=== PATIENT | male | born 1985 | race Caucasian/White ===

== ENCOUNTER 2020-03-15 07:14 | Inpatient (IN) | payer OTHER, SELFPAY ==
--- NOTE | ~2020-03-15 | CT_ITS ---
EXAMINATION: CT abdomen pelvis w con DATE: 03/15/2020 08:16 INDICATION: Epigastric abdominal pain. TECHNIQUE: Computed tomography (CT) of the abdomen and pelvis was performed with 100 mL Omnipaque 350 intravenous contrast. Automated exposure control and iterative reconstruction technique were employe d. The dose-length product was 284.82 mGy-cm. COMPARISON: None. FINDINGS: The visualized portions of the lung bases demonstrate mild atelectasis. No pleural effusion . The heart size is normal. No pericardial effusion. The liver and spleen are normal. There are jarrell es of cholecystectomy. There is edema of the head of the pancreas with surrounding fat stranding and small volume of free fluid, consistent with acute interstitial pancreatitis. There is inflammation of the adjacent duodenum. The adrenal glands and kidneys are normal. There are no dilated loops of kacie l. The appendix is normal. There are no pathologically enlarged lymph nodes. There is no pelvic ascit es. There is mild thoracic spondylosis. IMPRESSION: 1. Acute interstitial pancreatitis. Reviewed, dictated and finalized at location A.
[2020-03-15 07:23] VITALS: BP 155/105; PULSE 117; RESP 18; TEMP 36.8; O2SAT 100
--- NOTE | 2020-03-15 07:23 | ED.ABDPAIN ---
HPI - Abdominal Pain General Chief Complaint: Abdominal Pain Stated Complaint: abd pain Time Seen by Provider: 03/15/20 07:16 History of Present Illness HPI narrative: Epigastric pain for the past 3 days. Severe. Radiates throughout abdomen. Feels like before he had his gall bladder removed. Tried ibuprofen with temoparary partial relief of the pain. No nausea, vomiting. He reports chronic diarrhea. He says that he has a lot of medical problems, but nothing right now Related Data Home Medications Medication Instructions Recorded Confirmed atorvastatin 20 mg DAILY 03/15/20 03/15/20 clonidine HCl 0.1 mg Q12H 03/15/20 03/15/20 levothyroxine 200 mcg DAILY 03/15/20 03/15/20 olanzapine [Zyprexa] 5 mg PO DAILY PRN 03/15/20 03/15/20 paliperidone palm (3-month) See Rx Instructions .ROUTE .COMPLEX 03/15/20 03/15/20 [Invega Trinza] Allergies Allergy/AdvReac Type Severity Reaction Status Date / Time No Known Allergies Allergy Verified 03/15/20 07:32 Review of Systems Review of Systems: All systems reviewed & are unremarkable except as noted in HPI and below Constitutional: Constitutional: Denies fever(s) ENT: Denies sore throat Cardiovascular: Cardiovascular: Denies chest pain Respiratory: Respiratory: Denies dyspnea Gastrointestinal: Gastrointestinal: Reports abdominal pain, Reports diarrhea, Denies nausea and Denies vomiting Genitourinary: Genitourinary: Denies dysuria Musculoskeletal: Musculoskeletal: Denies back pain Neurologic: Denies weakness [facility] Surgical History Surgical History Hx of cholecystectomy Family History Family History (Updated 03/15/20 @ 10:25 by Patricia Fernando RN) Father Acute myocardial infarction Cerebrovascular accident Mother Family history of malignant neoplasm of thyroid Diabetes mellitus Social History Social History Smoking packs per day: 2 Smoking cigarettes per day: 40.0 Years smoked: 27 Smoking pack-years: 54.00 Smoking status: Current every day smoker Tobacco type: cigarettes Alcohol intake: current Drinks per week: 90 Substance use type: marijuana Last use: 03/14/20 Gender identity (if verbalized by the patient): Male Spiritual care concerns: No Exam Const: General: healthy appearing, no acute distress and alert Orientation/consciousness: patient oriented x3 HENMT: Head: normal to inspection Neck: Neck: normal visual inspection and no lymphadenopathy Chest: Chest palpation & inspection: no tenderness Resp: Effort & Inspection: normal respiratory effort Auscultation: clear to auscultation bilaterally and wheezes Cardio: Jugular venous distension: no JVD Rate: regular rate Rhythm: regular rhythm Heart sounds: no murmurs GI: Inspection: non-distended GI Palp: Yes Soft to palpation and Yes Tenderness to palpation present (GI) (epigastric) Skin: General skin exam: normal color Neuro: General: patient oriented x3 and moves all extremities Speech: normal speech Extrem: General: no edema Psych: Appearance: well kempt Affect: normal affect Course Vital Signs Vital signs: Vital Signs Temperature 36.8 C 03/15/20 07:23 Pulse Rate 117 H 03/15/20 07:23 Respiratory Rate 18 03/15/20 07:23 Blood Pressure 155/105 H 03/15/20 07:23 Pulse Oximetry 100 03/15/20 07:23 Temperature 37.2 C 03/15/20 10:18 Pulse Rate 74 03/15/20 10:18 Respiratory Rate 20 03/15/20 10:18 Blood Pressure 133/94 H 03/15/20 10:18 Pulse Oximetry 97 03/15/20 10:18 MDM - Abdominal Pain Differential Diagnosis Differential diagnosis: Likely pancreatitis and other (gastritis) Medical Records Attestation: I reviewed the patient's medical records. Lab Data Attestation: I reviewed the patient's lab results. Result diagrams: 03/15/20 07:27 03/15/20 07:27 Labs: Lab Results
[2020-03-15 07:35] LABS: Basophils Absolute Auto 0.1 K/mm3 (0.0-0.1); Basophils Percent Auto 0.5 % (0.2-1.2); Eosinophils Absolute Auto 0.1 K/mm3 (0-0.3); Hematocrit 45.8 % (42.0-52.0); Immature Granulocyte Absolute 0.03 K/mm3 (0.00-0.031); Immature Granulocyte Percent A 0.3 % (0-0.5); Lymphocytes Absolute Auto 1.95 K/mm3 (0.9-3.2); Lymphocytes Percent Auto 16.8 % (18.3-44.2); Mean Corpuscular HGB Conc 34.9 g/dl (32-36); Mean Corpuscular Hemoglobin 32.5 pg (26-34); Mean Corpuscular Volume 92.9 fl (80-100); Mean Platelet Volume 9.6 fl (7.4-10.4); Monocytes Absolute Auto 0.8 K/mm3 (0.1-0.6); Monocytes Percent Auto 7.2 % (2.6-8.5); Neutrophils Absolute Auto 8.6 K/mm3 (1.3-6.7); Neutrophils Percent Auto 74.2 % (45.5-73.1); Platelet Count Result 270 k/mm3 (150-375); Red Blood Count 4.93 M/mm3 (4.6-6.20); Red Cell Distribution Width 12.2 % (11.5-14.5); White Blood Count 11.6 K/mm3 (4.5-10.0)
[2020-03-15 07:37] LABS: Add Urine Microscopic? NO; Appearance Urine Clear (Clear); Bilirubin Urine Negative (Negative); Blood Urine Negative (Negative); Color Urine Yellow (Yellow); Glucose Urine UA Negative (Negative); Ketones Urine Negative (Negative); Leukocyte Esterase Ur Negative LEU/UL (Negative); Nitrate Urine Negative (Negative); Protein Urine Negative (Negative); Specific Grav Ur 1.013 (1.001-1.035); Urobilinogen Urine Negative mg/dL (<2.0)
[2020-03-15] MEDS: MAG HYDROX/AL HYDROX/SIMETH 30 ML UDC PO (07:38)
[2020-03-15] MEDS: LIDOCAINE HCL 2% VISC SOLN 15 ML UDC 20 ML PO (07:38)
[2020-03-15] MEDS: DICYCLOMINE HCL INJ 20 MG/2 ML VIAL IM (07:41)
[2020-03-15] MEDS: PANTOPRAZOLE SODIUM IV 40 MG VIAL IV PUSH (07:42)
[2020-03-15 07:47] LABS: Alanine Aminotransferase 45 U/L (4-50); Albumin Level 4.3 g/dL (3.5-5.1); Alkaline Phosphatase 141 U/L (38-126); Anion Gap 8 mmol/L (8-16); Aspartate Amino Transferase 49 U/L (17-59); Bilirubin,Total 0.8 mg/dL (0.2-1.3); Blood Urea Nitrogen 4 mg/dL (9-20); Calcium 9.5 mg/dL (8.4-10.2); Carbon Dioxide 21 mmol/L (22-30); Chloride 106 mmol/L (98-107); Estimated CRCL calculation 114 ml/min; Estimated Glomerular Filt Rate > 60; Glucose 160 mg/dL (75-110); Lipase 842 U/L (23-300); Potassium 3.6 mmol/L (3.4-5.0); Sodium 135 mmol/L (137-145)
[2020-03-15] MEDS: SODIUM CHLORIDE 0.9% IV 1,000 ML 999 ML IV CONT (09:01)
[2020-03-15] MEDS: MORPHINE SULFATE 4 MG/ML INJ IV PUSH ×3 (09:02→13:06)
[2020-03-15 09:24] VITALS: BP 146/99; PULSE 101; RESP 18; O2SAT 100
--- NOTE | 2020-03-15 10:00 | ADMGEN ---
This patient, Luke Arriaga, was admitted to Medical Room 347-01. Patient/family oriented to hospital policies and general routines including ID bracelet, bed and alarms, visiting hours, pain management, procedures, bathroom and other care routines, personal items, smoking policy, room service/diet, and visiting hours. Valuables list has been completed. Information on how to activate the Rapid Response Team has been discussed. Patient/Family are encouraged to report perceived risks to care and to ask questions if they do not understand what they are told or what they should do.
[2020-03-15] MEDS: SODIUM CHLORIDE 0.9% IV 1,000 ML 150 ML IV CONT ×2 (10:08→16:58)
[2020-03-15 10:18] VITALS: BP 133/94; PULSE 74; RESP 20; TEMP 37.2; O2SAT 97
[2020-03-15 10:20] VITALS: BMI 22.4
--- NOTE | 2020-03-15 11:56 | PM.IMHP ---
H&P: HPI History of Present Illness Date/Time: 03/15/20 11:56 Chief complaint: Acute pancreatitis Narrative: Luke Arriaga is a 34 year old male with a past medical history of psychiatric illness, S/P cholecystectomy 5 years ago and patient also states that he has been drinking 10-12 beers every day patient presented emergency department with a complaint of abdominal pain for last 3 days nausea pain radiates to all over his abdominal, denies any fever or chills, patient LFT are within normally limits and has elevated lipase of 842, patient had a CT scan of the abdomen showed acute interstitial pancreatitis. patient is diagnosed with acute pancreatitis will keep the patient NPO, hydrate and pain management, will monitor patient's lipase and further recommendation to follow. patient with history of alcohol abuse we have started the patient on CIWA protocol and Librium as well as Ativan p.r.n. Review of Systems Review of Systems: All systems reviewed & are unremarkable except as noted in HPI and below PMFSH Surgical History Surgical History Hx of cholecystectomy Family History Family History (Updated 03/15/20 @ 10:25 by Patricia Fernando RN) Father Acute myocardial infarction Cerebrovascular accident Mother Family history of malignant neoplasm of thyroid Diabetes mellitus Social History Social History Smoking packs per day: 2 Smoking cigarettes per day: 40.0 Years smoked: 27 Smoking pack-years: 54.00 Smoking status: Current every day smoker Tobacco type: cigarettes Alcohol intake: current Drinks per week: 90 Substance use type: marijuana Last use: 03/14/20 Gender identity (if verbalized by the patient): Male Spiritual care concerns: No Meds Home Medications and Allergies Home Medications Medication Instructions Recorded Confirmed Type atorvastatin 20 mg DAILY 03/15/20 03/15/20 History clonidine HCl 0.1 mg Q12H 03/15/20 03/15/20 History levothyroxine 200 mcg DAILY 03/15/20 03/15/20 History olanzapine [Zyprexa] 5 mg PO DAILY PRN 03/15/20 03/15/20 History paliperidone palm (3-month) See Rx Instructions .ROUTE .COMPLEX 03/15/20 03/15/20 History [Invega Trinza] Allergies Allergy/AdvReac Type Severity Reaction Status Date / Time No Known Allergies Allergy Verified 03/15/20 07:32 Vital Signs Vital Signs - 24 hr 03/15/20 07:23 03/15/20 09:24 03/15/20 10:18 Temperature 98.2 F 98.9 F Pulse Rate 117 H 101 H 74 Respiratory Rate 18 18 20 Blood Pressure 155/105 H 146/99 H 133/94 H Pulse Oximetry 100 100 97 Exam Const: General: no acute distress and uncomfortable HENMT: General nose exam: Normal nares present Mouth: Yes moist mucous membranes Eyes: General: appearance normal, both eyes and all related structures Sclera: sclerae normal Neck: Neck: supple Resp: Effort & Inspection: normal respiratory effort Auscultation: clear to auscultation bilaterally Cardio: Rate: regular rate Rhythm: regular rhythm GI: Auscultation: normal bowel sounds Other: tender in epigastric Skin: General skin exam: normal color Neuro: Speech: normal speech Sensory Exam: normal sensation Extrem: General: normal to inspection Psych: Affect: Anxious affect present H&P: Results Labs Labs: Short CBC 03/15/20 Range/Units 07:27 WBC 11.6 H (4.5-10.0) K/mm3 Hgb 16.0 (14.0-18.0) g/dL Hct 45.8 (42.0-52.0) % Plt Count 270 (150-375) k/mm3 [facility] 03/15/20 07:27 Sodium 135 L Potassium 3.6 Chloride 106 Carbon Dioxide 21 L BUN 4 L Creatinine 0.70 Glucose 160 H Calcium 9.5 Liver Function 03/15/20 Range/Units 07:27 Total Bilirubin 0.8 (0.2-1.3) mg/dL AST 49 (17-59) U/L ALT 45 (4-50) U/L Alkaline Phosphatase 141 H (38-126) U/L Albumin 4.3 (3.5-5.1) g/dL Urine 03/15/20 Range/Units
[2020-03-15] MEDS: chlordiazePOXIDE 25 MG CAPSULE 50 MG PO ×2 (12:21→17:59)
[2020-03-15] MEDS: NICOTINE (*PBKC) 21 MG PATCH 1 PATCH TRANSDERM (12:21)
[2020-03-15 14:53] VITALS: BP 160/98; PULSE 88; RESP 16; TEMP 37.2; O2SAT 98
[2020-03-15 20:00] VITALS: PULSE 88
[2020-03-15 21:23] VITALS: BP 160/90; PULSE 95; RESP 16; TEMP 36.6; O2SAT 93
[2020-03-16] MEDS: chlordiazePOXIDE 25 MG CAPSULE 50 MG PO ×2 (00:21→05:59)
[2020-03-16 00:24] VITALS: PULSE 98
[2020-03-16 00:29] VITALS: BP 162/88; PULSE 104; RESP 20; TEMP 36.8; O2SAT 98
[2020-03-16 04:41] VITALS: PULSE 94
[2020-03-16 06:00] VITALS: BP 154/90; PULSE 118; RESP 20; TEMP 36.6; O2SAT 99
[2020-03-16 06:29] LABS: Hematocrit 42.8 % (42.0-52.0); Hemoglobin 15.1 g/dL (14.0-18.0); Mean Corpuscular HGB Conc 35.3 g/dl (32-36); Mean Corpuscular Hemoglobin 32.8 pg (26-34); Mean Platelet Volume 9.8 fl (7.4-10.4); Platelet Count Result 237 k/mm3 (150-375); Red Cell Distribution Width 11.9 % (11.5-14.5); White Blood Count 14.3 K/mm3 (4.5-10.0)
[2020-03-16 07:12] LABS: Alanine Aminotransferase 29 U/L (4-50); Albumin Level 3.7 g/dL (3.5-5.1); Alkaline Phosphatase 108 U/L (38-126); Anion Gap 6 mmol/L (8-16); Aspartate Amino Transferase 31 U/L (17-59); Bilirubin,Total 0.9 mg/dL (0.2-1.3); Blood Urea Nitrogen 4 mg/dL (9-20); Calcium 8.9 mg/dL (8.4-10.2); Carbon Dioxide 22 mmol/L (22-30); Chloride 105 mmol/L (98-107); Estimated CRCL calculation 138 ml/min; Estimated Glomerular Filt Rate > 60; Glucose 128 mg/dL (75-110); Potassium 3.6 mmol/L (3.4-5.0); Sodium 133 mmol/L (137-145)
[2020-03-16 08:00] VITALS: BP 154/90; PULSE 118; PULSE 94; RESP 20; O2SAT 99
[2020-03-16 08:25] LABS: Lipase 7490 U/L (23-300)
[2020-03-16] MEDS: NICOTINE (*PBKC) 21 MG PATCH 1 PATCH TRANSDERM (09:34)
--- NOTE | 2020-03-16 11:52 | PC.NURSE ---
1120 patient voiced for the second time that he is ready to leave against medical advise. Notified him that if he leaves that his payor source may not pay for his hospital stay. He voiced that he is still leaving and called for a ride. Notified Dr. Broussard and charge nurse that patient is leaving against medical advice. No new orders.
--- NOTE | 2020-03-16 14:12 | PM.DS ---
DS: Admitting Diagnosis Admitting Diagnosis Admitting Diagnosis: Acute pancreatitis Patient left AMA before I can see him DS: Summary Time Spent with Patient Time attestation: Total time spent providing and/or coordinating discharge services: DS: Data Data Completed and Pending Labs on day of discharge: Labs from last 24 hours 03/16/20 03/16/20 03/16/20 05:59 05:59 05:57 WBC 14.3 H RBC 4.60 Hgb 15.1 Hct 42.8 MCV 93.0 MCH 32.8 MCHC 35.3 RDW 11.9 Plt Count 237 MPV 9.8 Sodium 133 L Potassium 3.6 Chloride 105 Carbon Dioxide 22 Anion Gap 6 L BUN 4 L Creatinine 0.60 L Estim Creat Clear Calc 138 Estimated GFR > 60 Glucose 128 H Calcium 8.9 Magnesium 2.0 Total Bilirubin 0.9 AST 31 ALT 29 Alkaline Phosphatase 108 Total Protein 6.0 L Albumin 3.7 Lipase 7490 H Discharge Plan Discharge Consulting providers: Raulito Collado Patient Disposition: Left Against Medical Advice Patient Instructions: Pancreatitis (DC), Pain Management (DC), Acute Delirium (DC), Alcohol Withdrawal (DC), How to Quit Using Smokeless Tobacco (DC) Discharge Medications: No Action clonidine HCl 0.1 mg tablet 0.1 mg Q12H RF: 0 atorvastatin 20 mg tablet 20 mg DAILY RF: 0 levothyroxine 200 mcg tablet 200 mcg DAILY RF: 0 Invega Trinza 410 mg/1.315 mL syringe See Rx Instructions .ROUTE .COMPLEX RF: 0 olanzapine [Zyprexa] 5 mg Tablet 5 mg PO DAILY PRN (Reason: Anxiety) RF: 0 Date of admission: 03/15/20 09:01 Primary Care Provider: PHYSICIAN,PORTRAIT ARTIST Admitting Provider: Denita Broussard Discharge Date/Time: 03/16/20 11:35 Attending physician on admission: Denita Broussard Condition: Stable Quality VTE Prophylaxis VTE prophylaxis: mechanical ordered
== END 2020-03-16 11:35 | disposition left against medical advice (07) | DRG 282 ==
LOC: ANHED 07:49 → ANH3MED 09:47
PROVIDERS: Admitting Provider Family Medicine; Emergency Provider Emergency Medicine; Visit Provider Family Medicine
DX: K85.80 Other acute pancreatitis without necrosis or infection (principal); F10.10 Alcohol abuse, uncomplicated; F17.210 Nicotine dependence, cigarettes, uncomplicated; Z90.49 Acquired absence of other specified parts of digestive tract
CPT/HCPCS: 36415; 74177; 80053; 81003; 83690; 83735; 85025; 85027; 96365; 96372; 96375; 99285; A9270; C9113; J0131; J0500; J1170; J2060; J2270; J7030; Q9967

== ENCOUNTER 2020-03-18 11:29 | Inpatient (IN) | payer OTHER, SELFPAY ==
[2020-03-18] VITALS (7 sets, daily range): BP systolic 129–148; BP diastolic 70–99; PULSE 64–98; RESP 16–21; TEMP 36.2–36.6; O2SAT 98–100; BMI 23.9
[2020-03-18 12:02] LABS: Basophils Absolute Auto 0.1 K/mm3 (0.0-0.1); Basophils Percent Auto 0.8 % (0.2-1.2); Eosinophils Absolute Auto 0.5 K/mm3 (0-0.3); Hematocrit 39.3 % (42.0-52.0); Hemoglobin 13.7 g/dL (14.0-18.0); Immature Granulocyte Absolute 0.02 K/mm3 (0.00-0.031); Immature Granulocyte Percent A 0.2 % (0-0.5); Lymphocytes Absolute Auto 1.94 K/mm3 (0.9-3.2); Lymphocytes Percent Auto 20.6 % (18.3-44.2); Mean Corpuscular HGB Conc 34.9 g/dl (32-36); Mean Corpuscular Hemoglobin 32.4 pg (26-34); Mean Corpuscular Volume 92.9 fl (80-100); Mean Platelet Volume 9.4 fl (7.4-10.4); Monocytes Absolute Auto 0.8 K/mm3 (0.1-0.6); Monocytes Percent Auto 8.7 % (2.6-8.5); Neutrophils Absolute Auto 6.1 K/mm3 (1.3-6.7); Neutrophils Percent Auto 64.7 % (45.5-73.1); Platelet Count Result 231 k/mm3 (150-375); Red Blood Count 4.23 M/mm3 (4.6-6.20); White Blood Count 9.4 K/mm3 (4.5-10.0)
[2020-03-18 12:13] LABS: Alanine Aminotransferase 27 U/L (4-50); Alkaline Phosphatase 107 U/L (38-126); Anion Gap 10 mmol/L (8-16); Aspartate Amino Transferase 46 U/L (17-59); Bilirubin,Total 0.4 mg/dL (0.2-1.3); Blood Urea Nitrogen 3 mg/dL (9-20); Calcium 9.2 mg/dL (8.4-10.2); Carbon Dioxide 21 mmol/L (22-30); Chloride 106 mmol/L (98-107); Estimated CRCL calculation 136 ml/min; Estimated Glomerular Filt Rate > 60; Glucose 147 mg/dL (75-110); Lipase 1386 U/L (23-300); Potassium 3.6 mmol/L (3.4-5.0); Sodium 137 mmol/L (137-145)
--- NOTE | 2020-03-18 12:31 | ED.GENADULT ---
HPI - General Adult General Chief complaint: Abdominal Pain Stated complaint: abd pain/pancreatitis Time Seen by Provider: 03/18/20 12:15 Source: patient Limitations: no limitations History of Present Illness HPI narrative: Patient is a 34 y/o male complaining of epigastric abdominal pain starting 6 days ago. He describes the pain as sharp with intermittent radiation to his back. He has chronic diarrhea, but no vomiting. He has no fever, chills or dysuria. He states that he was admitted for pancreatitis, but left AMA 2 days ago. He states that since he left AMA, he has been eating and drinking beer, which made his pain worse. He is agreeable to be admit and compliant with medical treatment. Related Data Home Medications Medication Instructions Recorded Confirmed atorvastatin 20 mg DAILY 03/15/20 03/15/20 clonidine HCl 0.1 mg Q12H 03/15/20 03/15/20 levothyroxine 200 mcg DAILY 03/15/20 03/15/20 olanzapine [Zyprexa] 5 mg PO DAILY PRN 03/15/20 03/15/20 paliperidone palm (3-month) See Rx Instructions .ROUTE .COMPLEX 03/15/20 03/15/20 [Invega Trinza] Allergies Allergy/AdvReac Type Severity Reaction Status Date / Time No Known Allergies Allergy Verified 03/15/20 07:32 Review of Systems Constitutional: Constitutional: Denies chills, Denies fever(s), Denies headache(s) and Denies weakness Eyes: Eyes: Denies blurry vision ENT: Denies headache(s) and Denies neck pain Cardiovascular: Cardiovascular: Denies chest pain and Denies dyspnea Respiratory: Respiratory: Denies cough and Denies dyspnea Gastrointestinal: Gastrointestinal: Reports abdominal pain, Reports diarrhea, Denies nausea and Denies vomiting Genitourinary: Genitourinary: Denies hematuria and Denies dysuria Musculoskeletal: Musculoskeletal: Denies back pain and Denies neck pain Neurologic: Denies headache(s) and Denies weakness PMF Past Medical History Medical History (Updated 03/18/20 @ 13:49 by Klaudia Pretty MD) Depression with anxiety Hemorrhoids Hyperlipidemia Hypothyroidism Schizoaffective disorder Seizures Last seizure in 2018. Thyroid cancer (~2000) Status post radio active iodine treatment. Surgical History Surgical History (Updated 03/18/20 @ 13:37 by Anh Schaeffer PA-C) History of cholecystectomy Family History Family History Father Acute myocardial infarction Cerebrovascular accident Mother Family history of malignant neoplasm of thyroid Diabetes mellitus Social History Social History (Updated 03/18/20 @ 13:39 by Anh Schaeffer PA-C) Social History: Surrogate decision maker: Code status: Smoking packs per day: 2 Smoking cigarettes per day: 40.0 Years smoked: 27 Smoking pack-years: 54.00 Smoking status: Current every day smoker Tobacco type: cigarettes Alcohol intake: current Drinks per week: 90 Substance use type: marijuana Last use: 03/14/20 Additional living arrangements comments: Resides in [place]. Gender identity (if verbalized by the patient): Male Sexual Orientation (if Verbalized by the Patient): Straight or Heterosexual Spiritual care concerns: No Exam Const: General: no acute distress and well developed Orientation/consciousness: oriented to person, oriented to place, oriented to time and patient oriented x3 HENMT: Head: normocephalic Ears: external ears normal General nose exam: Normal external nose present Eyes: General: appearance normal, both eyes and all related structures Conjunctivae: conjunctivae normal Neck: Neck: normal visual inspection and full ROM Chest: Chest palpation & inspection: normal inspection of the chest and no tenderness Resp: Effort & Inspection: normal respiratory effort Auscultation: clear to auscultation bilaterally Cardio: Rate: regular rate Rhythm: regular rhythm GI: GI Palp: Yes abdominal tenderness (epigastric) and Yes Soft to palpation Skin
[2020-03-18] MEDS: MORPHINE SULFATE 4 MG/ML INJ IV PUSH (12:48)
[2020-03-18] MEDS: SODIUM CHLORIDE 0.9% IV 1,000 ML 999 ML IV CONT (12:48)
--- NOTE | 2020-03-18 13:30 | ADMGEN ---
This patient, Luke Arriaga, was admitted to 2 Medical Room 240-01. Patient/family oriented to hospital policies and general routines including ID bracelet, bed and alarms, visiting hours, pain management, procedures, bathroom and other care routines, personal items, smoking policy, room service/diet, and visiting hours. Valuables list has been completed. Information on how to activate the Rapid Response Team has been discussed. Patient/Family are encouraged to report perceived risks to care and to ask questions if they do not understand what they are told or what they should do.
--- NOTE | 2020-03-18 14:00 | PM.IMHP ---
H&P: HPI History of Present Illness Date/Time: 03/18/20 14:00 Chief complaint: Abdominal pain. Narrative: Luke Arriaga is a 34-year-old male with hypertension, hyperlipidemia, hypothyroidism status post thyroidectomy for thyroid cancer, and schizoaffective disorder who presented to the emergency department earlier this afternoon for evaluation of abdominal pain. Last Wednesday he reports the gradual onset of heartburn, which seemed to settle mainly in epigastrium and slightly to the left upper quadrant. The pain intensified and is been a constant sharp, shooting pain. The pain is worse with eating and drinking and he gives no alleviating factors. He was admitted to the hospital on March 15 with pancreatitis, however left against medical advice the following day because he was not allowed to eat. Since leaving hospital 2 days ago, he has continued to eat and drink beer (his usual 10 to 15 beers a day), which of course has made his pain worse. He denies associated nausea, vomiting, and diaphoresis At the time my evaluation he rates his pain 9/10. He is noticeably jittery in bed but he and his admit that this is normal behavior for him due to his anxiety. He has never had signs or symptoms of alcohol withdrawal to his knowledge, but it sounds as though he had 3 seizures in the past between 2011 in 2018. With further questioning, he has only been drinking alcohol in significant quantities for approximately 8 months due to stress. Additionally, he occasionally has hallucinations related to his schizoaffective disorder but he has not noticed a change in these. Of note, his last drink was at 22:00 last evening, and his last meal consisted of hot dog this morning. Review of Systems Review of Systems: Narrative: Twelve systems reviewed with pertinent positives and negatives as per HPI. No fever, chills, or sweats. No headache. No recent cold or flu symptoms. Denies chest pain and shortness of breath. No feelings of racing heart. He has chronic diarrhea, up to 10 loose stools a day, and this is been going on for many years. He reports bright red blood per rectum with each bowel movement, and has had 4 colonoscopies showing internal hemorrhoids. Except as documented, all other systems were reviewed and are negative. [facility] Past Medical History Medical History (Updated 03/18/20 @ 14:38 by Anh Schaeffer PA-C) Alcohol abuse Anxiety For which he is prescribed clonidine. Attention deficit disorder Depression Hemorrhoids Hyperlipidemia Hypothyroidism Schizoaffective disorder Seizures Last seizure in 2018. Spontaneous pneumothorax Thyroid cancer (~2000) Status post thyroidectomy. Tobacco dependence Surgical History Surgical History (Updated 03/18/20 @ 14:30 by Anh Schaeffer PA-C) History of cholecystectomy History of thyroidectomy (~2000) Family History Family History Father Acute myocardial infarction Cerebrovascular accident Mother Family history of malignant neoplasm of thyroid Diabetes mellitus Social History Social History (Updated 03/18/20 @ 14:32 by Anh Schaeffer PA-C) Social History: Surrogate decision maker: Rekha Arriaga, . Code status: Full code. Smoking packs per day: 2 Smoking cigarettes per day: 40.0 Years smoked: 27 Smoking pack-years: 54.00 Smoking status: Current every day smoker Tobacco type: cigarettes Alcohol intake: current Drinks per week: 90 Alcohol use details: Patient drinks between 10 to 15 beers a day. Substance use type: marijuana Other substance usage details: Daily marijuana use. Last use: 03/14/20 Additional living arrangements comments: Resides in a multi generation home in [place] to include his and 2 children. Additional occupation/education comments: Disabled due to underlying mental illness. Gender identity (if verbalized by the patient):
[2020-03-18] MEDS: SODIUM CHLORIDE 0.9% IV 1,000 ML 125 ML IV CONT ×2 (14:09→21:51)
[2020-03-18] MEDS: chlordiazePOXIDE 10 MG CAPSULE PO ×2 (15:04→23:47)
[2020-03-18] MEDS: NICOTINE (*PBKC) 21 MG PATCH 1 PATCH TRANSDERM (15:07)
[2020-03-18 15:16] LABS: Magnesium 2.1 mg/dL (1.6-2.3)
[2020-03-18 15:43] LABS: Thyroid Stimulating Hormone Reflex < 0.015 uIU/mL (0.465-4.68)
[2020-03-18] MEDS: THIAMINE HCL 200 MG/2 ML VIAL 100 MG IV PUSH (16:49)
[2020-03-18] MEDS: cloNIDine HCL 0.1 MG TABLET PO (21:47)
[2020-03-19] VITALS (7 sets, daily range): BP systolic 142–163; BP diastolic 87–95; PULSE 67–84; RESP 16–21; TEMP 36.1–37.1; O2SAT 98–100
[2020-03-19 05:19] LABS: Hematocrit 38.1 % (42.0-52.0); Mean Corpuscular HGB Conc 34.1 g/dl (32-36); Mean Corpuscular Hemoglobin 32.5 pg (26-34); Mean Corpuscular Volume 95.3 fl (80-100); Mean Platelet Volume 9.8 fl (7.4-10.4); Platelet Count Result 232 k/mm3 (150-375); White Blood Count 8.4 K/mm3 (4.5-10.0)
[2020-03-19 05:40] LABS: Alanine Aminotransferase 25 U/L (4-50); Albumin Level 3.4 g/dL (3.5-5.1); Alkaline Phosphatase 104 U/L (38-126); Anion Gap 6 mmol/L (8-16); Aspartate Amino Transferase 38 U/L (17-59); Bilirubin,Total 0.4 mg/dL (0.2-1.3); Blood Urea Nitrogen 4 mg/dL (9-20); Calcium 8.7 mg/dL (8.4-10.2); Carbon Dioxide 25 mmol/L (22-30); Chloride 109 mmol/L (98-107); Estimated CRCL calculation 123 ml/min; Estimated Glomerular Filt Rate > 60; Glucose 105 mg/dL (75-110); Lipase 827 U/L (23-300); Potassium 3.5 mmol/L (3.4-5.0); Sodium 140 mmol/L (137-145)
[2020-03-19] MEDS: chlordiazePOXIDE 10 MG CAPSULE PO ×3 (06:01→22:41)
[2020-03-19] MEDS: SODIUM CHLORIDE 0.9% IV 1,000 ML 125 ML IV CONT ×3 (06:01→22:44)
[2020-03-19] MEDS: LEVOTHYROXINE SODIUM 100 MCG TABLET 200 MCG PO (06:02)
[2020-03-19 06:30] LABS: Free T4 Free Thyroxine Reflex 1.17 ng/dL (0.78-2.19)
[2020-03-19] MEDS: FOLIC ACID 1 MG TABLET PO (07:59)
[2020-03-19] MEDS: NICOTINE (*PBKC) 21 MG PATCH 1 PATCH TRANSDERM (08:00)
[2020-03-19] MEDS: ATORVASTATIN 20 MG TABLET PO (08:00)
[2020-03-19 08:56] LABS: Cortisol Random 5.04 ug/dL
--- NOTE | 2020-03-19 10:27 | PM.IMPN ---
Progress Note: A&P Assessment and Plan (1) Acute pancreatitis: Qualifiers: Acute pancreatitis complication: no infection or necrosis Pancreatitis type: unspecified pancreatitis type Qualified Code(s): K85.90 - Acute pancreatitis without necrosis or infection, unspecified Code(s): K85.90 - Acute pancreatitis without necrosis or infection, unspecified Status: Acute Assessment and Plan: ----- Acute pancreatitis likely due to alcohol consumption as he drinks 10-15 beers a day. His last drink was 03/17 at 2200. He is on scheduled Librium and his CIWA is 0 so far. I will continue with this since he is still in the withdrawal window but as time goes on we can taper this. Liver enzymes and bilirubin are normal, I do not suspect gallbladder disease at this time. Since his lipase is improving with his pain, we will start clear liquids. The patient was diagnosed with this a few days prior but left AMA due to not being able to eat. He seems to be more cooperative today and understands the risk of continuing drinking which include . (2) Alcohol abuse: Code(s): F10.10 - Alcohol abuse, uncomplicated Status: Acute Assessment and Plan: ----- He drinks 10 to 15 beers a night and has for at least 8 months.CIWA okay this morning. (3) Hypothyroidism: Code(s): E03.9 - Hypothyroidism, unspecified Status: Acute Assessment and Plan: ----- Continue levothyroxine. T4 within normal limits at 1.17. Oddly, TSH is nondetectable. Could be subacute due to acute illness? I archie cortisol which was normal. Pituitary abnormality less likely. I would have this redrawn outpatient once acute illness is over. (4) Hyperlipidemia: Code(s): E78.5 - Hyperlipidemia, unspecified Status: Acute Assessment and Plan: ----- Continue statin therapy. LFTs within normal limits. (5) Psychiatric illness: Code(s): F99 - Mental disorder, not otherwise specified Status: Acute Assessment and Plan: ----- he has been diagnosed with depression, anxiety, ADD and schizoaffective disorder. These are all under control at this time. He is at bedside listening to classical music which he says helps. He has not had any hallucinations or thoughts of harming himself or others. Continue clonidine. He does have Zyprexa at home p.r.n. for anxiety. Will do Librium for now and wean that as stated above (6) Tobacco dependence: Code(s): F17.200 - Nicotine dependence, unspecified, uncomplicated Status: Acute Assessment and Plan: ----- we spoke about the affects of smoking which include . Continue nicotine patch Time Spent With Patient Time with patient: 25 - 35 minutes Subjective Date/time seen: 03/19/20 10:27 Interval history: Pt is a 34-year-old male here for pancreatitis. Patient states his pain is still a 7/10 but he is feeling much better and is ready to try clear liquids. He has not had any hallucinations or tremors. he has been having some anxiety which is baseline for him. He is wearing a nicotine patch which is helping. He has chronic diarrhea he attributes to his alcohol use. He denies chest pain, shortness of breath, fevers, chills, vomiting, or leg swelling Review of Systems Review of Systems: All systems reviewed & are unremarkable except as noted in HPI and below Exam Narrative: Exam Narrative: General: Well developed well nourished patient resting comfortably in bed in NAD HEENT: normocephalic Neck: supple Neuro: Alert and oriented x4 CV:RRR Resp:CTA Abd: Soft, non distended. pain to palpation to the epigastric area. No flank or umbilicus ecchymosis. Positive bowel sounds Extremities: No swelling, erythema, or pain to palpation. Objective Data Vital Signs Vital Signs: Vital Signs - 24 hr 03/18/20 11:34 03/18/20 13:08 03/18/20 13:43 Temperature 97.8 F Pulse Rate 98 78 80
[2020-03-19] MEDS: cloNIDine HCL 0.1 MG TABLET PO ×2 (12:19→20:54)
[2020-03-19 16:12] LABS: Total Triiodothyronine (T3) 1.13 NG/ML (0.97-1.69)
[2020-03-19] MEDS: LIDOCAINE 5% PATCH 1 PATCH TRANSDERM (18:25)
[2020-03-20] VITALS: BP 140/98
[2020-03-20] MEDS: LEVOTHYROXINE SODIUM 100 MCG TABLET 200 MCG PO (05:36)
[2020-03-20] MEDS: chlordiazePOXIDE 10 MG CAPSULE PO ×2 (05:37→17:23)
[2020-03-20 06:00] VITALS: BP 144/93; PULSE 70; RESP 20; TEMP 36.2; O2SAT 98
[2020-03-20 06:35] LABS: Hematocrit 37.7 % (42.0-52.0); Hemoglobin 12.7 g/dL (14.0-18.0); Mean Corpuscular HGB Conc 33.7 g/dl (32-36); Mean Corpuscular Hemoglobin 31.9 pg (26-34); Mean Corpuscular Volume 94.7 fl (80-100); Mean Platelet Volume 10.1 fl (7.4-10.4); Platelet Count Result 264 k/mm3 (150-375); Red Blood Count 3.98 M/mm3 (4.6-6.20); Red Cell Distribution Width 11.9 % (11.5-14.5); White Blood Count 8.4 K/mm3 (4.5-10.0)
[2020-03-20] MEDS: SODIUM CHLORIDE 0.9% IV 1,000 ML 125 ML IV CONT ×3 (06:39→23:26)
[2020-03-20 07:01] LABS: Anion Gap 6 mmol/L (8-16); Carbon Dioxide 27 mmol/L (22-30); Chloride 107 mmol/L (98-107); Estimated CRCL calculation 123 ml/min; Estimated Glomerular Filt Rate > 60; Glucose 111 mg/dL (75-110); Lipase 600 U/L (23-300); Magnesium 1.8 mg/dL (1.6-2.3); Potassium 3.4 mmol/L (3.4-5.0); Sodium 140 mmol/L (137-145)
[2020-03-20 07:03] LABS: Blood Urea Nitrogen < 2 mg/dL (9-20)
[2020-03-20] MEDS: ATORVASTATIN 20 MG TABLET PO (07:55)
[2020-03-20] MEDS: FOLIC ACID 1 MG TABLET PO (07:55)
[2020-03-20] MEDS: NICOTINE (*PBKC) 21 MG PATCH 1 PATCH TRANSDERM (07:56)
--- NOTE | 2020-03-20 08:33 | PM.IMPN ---
Progress Note: A&P Assessment and Plan (1) Acute pancreatitis: Qualifiers: Acute pancreatitis complication: no infection or necrosis Pancreatitis type: unspecified pancreatitis type Qualified Code(s): K85.90 - Acute pancreatitis without necrosis or infection, unspecified Code(s): K85.90 - Acute pancreatitis without necrosis or infection, unspecified Status: Acute Assessment and Plan: Acute pancreatitis is likely due to alcohol consumption as he drinks 10-15 beers a day. His last drink was 03/17 at 2200. Liver enzymes and bilirubin are normal and gallbladder disease is not suspected at this time. The patient was diagnosed with pancreatitis a few days prior but left AMA due to not being able to eat. He is much more cooperative and agreeable to treatment. Plan to continue IV fluids. Lipase continues to improve. He does continue to endorse pain but tolerated a clear liquid diet well. He will advance to a full liquid diet today. Plan to advance to low fat as tolerated later today. His bowel function has returned. Plan to monitor overnight tonight with hopeful discharge tomorrow. (2) Alcohol abuse: Code(s): F10.10 - Alcohol abuse, uncomplicated Status: Acute Assessment and Plan: He drinks 10 to 15 beers a night and has for at least 8 months. CIWA was 0 today. Continue CIWA protocol. Continue scheduled librium since he is still in the withdrawal window. Begin librium taper and monitor closely. (3) Hypothyroidism: Code(s): E03.9 - Hypothyroidism, unspecified Status: Acute Assessment and Plan: Continue levothyroxine. T4 within normal limits at 1.17. Oddly, TSH is nondetectable. Could be subacute due to acute illness? Cortisol was normal. Pituitary abnormality less likely. He will need repeat TSH outpatient once he recovers from his acute illness. (4) Hyperlipidemia: Code(s): E78.5 - Hyperlipidemia, unspecified Status: Acute Assessment and Plan: Continue statin therapy. LFTs were reviewed and are within normal limits. (5) Psychiatric illness: Code(s): F99 - Mental disorder, not otherwise specified Status: Acute Assessment and Plan: He has been diagnosed with depression, anxiety, ADD and schizoaffective disorder. He has no acute issues at this time including no hallucinations or thoughts of harming himself or others. He reports that his anxiety is well-controlled with music, nicotine patches, and his current regimen. Continue clonidine. He does have Zyprexa at home p.r.n. for anxiety. Begin to wean librium today. (6) Tobacco dependence: Code(s): F17.200 - Nicotine dependence, unspecified, uncomplicated Status: Acute Assessment and Plan: Continue to provide education on the affects of smoking which include . Continue nicotine patch Subjective Date/time seen: 03/20/20 08:33 Interval history: Mr. Arriaga is a 34 y.o. male who is seen in follow-up for pancreatitis. He continues to endorse upper abdominal pain which radiates to the back and is relieved with sitting up. He notes return of bowel function and had a soft bowel movement earlier today and is passing gas. He tolerated a clear liquid diet well yesterday and just ordered a full liquid diet to try. He denies nausea and vomiting. He reports chronic anxiety but does not believe it is worse from his baseline. He denies chest pain, dyspnea, calf pain, and leg swelling. He has no other concerns at this time. Review of Systems Review of Systems: All systems reviewed & are unremarkable except as noted in HPI and below Exam Narrative: Exam Narrative: General: Pleasant 34 y.o. male sitting up in bed watching TV in no acute distress. HEENT: Normocephalic and atraumatic. Conjunctivae and lids normal. PERRL. EOMI. Oral mucosa moist. Neck: Supple without lymphadenopathy or masses. Cardiac: Regular rate and rhythm. S1 and S2 normal.
[2020-03-20] MEDS: LIDOCAINE 5% PATCH 1 PATCH TRANSDERM (10:10)
[2020-03-20] MEDS: cloNIDine HCL 0.1 MG TABLET PO ×2 (12:09→21:24)
[2020-03-20 14:00] VITALS: BP 160/101; PULSE 76; RESP 14; TEMP 36.7; O2SAT 98
[2020-03-20 22:00] VITALS: BP 160/96; PULSE 66; RESP 16; TEMP 36.4; O2SAT 98
[2020-03-21 04:39] VITALS: BP 150/98; PULSE 63; RESP 16; TEMP 36.3; O2SAT 96
[2020-03-21 06:02] LABS: Hematocrit 38.9 % (42.0-52.0); Hemoglobin 13.5 g/dL (14.0-18.0); Mean Corpuscular HGB Conc 34.7 g/dl (32-36); Mean Corpuscular Hemoglobin 32.3 pg (26-34); Mean Corpuscular Volume 93.1 fl (80-100); Platelet Count Result 306 k/mm3 (150-375); Red Blood Count 4.18 M/mm3 (4.6-6.20); Red Cell Distribution Width 11.9 % (11.5-14.5); White Blood Count 8.4 K/mm3 (4.5-10.0)
[2020-03-21 06:10] LABS: Alanine Aminotransferase 31 U/L (4-50); Albumin Level 3.8 g/dL (3.5-5.1); Alkaline Phosphatase 114 U/L (38-126); Anion Gap 6 mmol/L (8-16); Aspartate Amino Transferase 47 U/L (17-59); Bilirubin,Total 0.3 mg/dL (0.2-1.3); Blood Urea Nitrogen 4 mg/dL (9-20); Calcium 9.4 mg/dL (8.4-10.2); Carbon Dioxide 26 mmol/L (22-30); Chloride 105 mmol/L (98-107); Estimated CRCL calculation 123 ml/min; Estimated Glomerular Filt Rate > 60; Glucose 111 mg/dL (75-110); Lipase 437 U/L (23-300); Potassium 3.5 mmol/L (3.4-5.0); Sodium 137 mmol/L (137-145)
[2020-03-21] MEDS: chlordiazePOXIDE 10 MG CAPSULE PO (06:47)
[2020-03-21] MEDS: LEVOTHYROXINE SODIUM 100 MCG TABLET 200 MCG PO (06:47)
[2020-03-21] MEDS: SODIUM CHLORIDE 0.9% IV 1,000 ML 125 ML IV CONT (06:48)
[2020-03-21 07:07] LABS: Hemoglobin A1C 5.4 % (<5.7)
[2020-03-21] MEDS: ATORVASTATIN 20 MG TABLET PO (08:44)
[2020-03-21] MEDS: FOLIC ACID 1 MG TABLET PO (08:44)
--- NOTE | 2020-03-21 09:18 | PM.DS ---
DS: Admitting Diagnosis Admitting Diagnosis Admitting Diagnosis: Pancreatitis DS: Discharge Diagnosis Discharge Diagnosis (1) Acute pancreatitis: Qualifiers: Acute pancreatitis complication: no infection or necrosis Pancreatitis type: unspecified pancreatitis type Qualified Code(s): K85.90 - Acute pancreatitis without necrosis or infection, unspecified Code(s): K85.90 - Acute pancreatitis without necrosis or infection, unspecified Status: Acute Assessment and Plan: Discharge summary (Date of service 03/21/20): Mr. Arriaga is a 34 y.o. male with PMH significant for hypertension, hyperlipidemia, hypothyroidism following thyroidectomy for thyroid CA, and schizoaffective disorder who presented to the emergency department for the evaluation of abdominal pain. He was recently hospitalized for pancreatitis 03/15/20 and signed out AMA because he couldn't eat. Initial workup in the ED revealed elevated lipase of 1386. He was admitted to the hospitalist service for further treatment. Acute pancreatitis was likely due to alcohol consumption as he drinks 10-15 beers a day. Liver enzymes and bilirubin were normal and gallbladder disease was not suspected. He was treated with IV fluids with significant improvement. Lipase continued to improve. He was placed on bowel rest initially and advanced to a low fat diet which he tolerated this well with no pain, nausea, or vomiting. His bowel function returned. He was discharged in stable condition on the morning of 03/21/20. (2) Alcohol abuse: Code(s): F10.10 - Alcohol abuse, uncomplicated Status: Acute Assessment and Plan: He drinks 10 to 15 beers a night and has for at least 8 months. He was monitored with CIWA protocol and CIWA scores remained low. Librium was tapered. Alcohol cessation was encouraged and he plans to continued abstinence. The risks of continued drinking were discussed. (3) Hypothyroidism: Code(s): E03.9 - Hypothyroidism, unspecified Status: Acute Assessment and Plan: Levothyroxine was continued. T4 within normal limits at 1.17. Oddly, TSH was nondetectable. Could be subacute due to acute illness? Cortisol was normal. Pituitary abnormality less likely. He will need repeat TSH outpatient once he recovers from his acute illness. A lab order was provided. (4) Hyperlipidemia: Code(s): E78.5 - Hyperlipidemia, unspecified Status: Acute Assessment and Plan: Statin therapy was continued as LFTs were reviewed and within normal limits. (5) Psychiatric illness: Code(s): F99 - Mental disorder, not otherwise specified Status: Acute Assessment and Plan: His current medication regimen was continued and his mood was stable. (6) Tobacco dependence: Code(s): F17.200 - Nicotine dependence, unspecified, uncomplicated Status: Acute Assessment and Plan: Education was provided on the effects of smoking which include poor cardiovascular outcomes and . Nicotine patch was used while inpatient. DS: Summary Hospital Course Reason for hospitalization: Abdominal pain Hospital Course: As above. Time spent discussing smoking cessation with patient: more than 10 minutes Status at Discharge Functional status at discharge: independent ambulation Overall status at discharge: patient is back to baseline Time Spent with Patient Time attestation: Total time spent providing and/or coordinating discharge services: 35 minutes Exam Narrative: Exam Narrative: Vitals at presentation: Temp Pulse Resp BP Pulse Ox 97.8 F 98 16 129/90 98 03/18/20 11:34 03/18/20 11:34 03/18/20 11:34 03/18/20 11:34 03/18/20 11:34 Vitals at discharge: Temp Pulse Resp BP Pul
[2020-03-21] MEDS: amLODIPine BESYLATE 5 MG TABLET PO (09:51)
== END 2020-03-21 10:20 | disposition home or self-care (01) | DRG 282 ==
LOC: ANHED 12:38 → ANH2MED 13:49
PROVIDERS: Physician Assistant; Admitting Provider Internal Medicine; Emergency Provider Emergency Medicine; Visit Provider Physician Assistant
DX: K85.20 Alcohol induced acute pancreatitis without necrosis or infection (principal); F10.10 Alcohol abuse, uncomplicated; E78.5 Hyperlipidemia, unspecified; E89.0 Postprocedural hypothyroidism; F17.210 Nicotine dependence, cigarettes, uncomplicated; F25.9 Schizoaffective disorder, unspecified; F32.9 Major depressive disorder, single episode, unspecified; F41.9 Anxiety disorder, unspecified; F98.8 Other specified behavioral and emotional disorders with onset usually occurring in childhood and adolescence; Z79.899 Other long term (current) drug therapy; Z85.850 Personal history of malignant neoplasm of thyroid
CPT/HCPCS: 36415; 80048; 80053; 82533; 83036; 83690; 83735; 84439; 84443; 84480; 85025; 85027; 96374; 99285; A9270; J1170; J2060; J2270; J3411; J7030

== ENCOUNTER 2020-05-29 10:13 | Inpatient (IN) | payer OTHER, SELFPAY ==
--- NOTE | ~2020-05-29 | CT_ITS ---
EXAMINATION: CT abdomen pelvis w con EXAM DATE: 05/29/2020 11:24 INDICATION: pancreatitis r/o abscess . Thyroid cancer. TECHNIQUE: Spiral CT of the abdomen and pelvis was performed following intravenous injection of 100 m L Omnipaque 350. Axial, coronal and sagittal images were reviewed. The dose-length product (DLP) fo r this examination was 374.09 mGy-cm. The exposure was tailored according to patient size (auto mA e xposure control), and iterative reconstruction (ASIR) was used as additional dose reduction technique . Comparison is made to prior examination from 03/15/2020. FINDINGS: There is hepatic steatosis. There is moderate amount of peripancreatic and periduodenal inf lammation. No pseudocyst, pancreatic necrosis or splenic vein thrombosis. Gallbladder not identified , patient likely has had cholecystectomy. Spleen, adrenal glands are unremarkable. Kidneys enhance symmetrically. There is no hydronephrosis. The prostate is unremarkable. The bladder is undistend ed at time of imaging. There is no retroperitoneal or pelvic lymphadenopathy. Probable identification of a normal appendix. No pericecal inflammation. The stomach and small kacie l are unremarkable. There is expected amount of colonic stool. No free intraperitoneal gas. The heart is normal in size. There are no pericardial or pleural effusions. The lung bases are unremark able. There are no osteoblastic or osteolytic lesions identified. Compared to prior examination, there was more edema in the uncinated head of the pancreas compared to today for the pancreatic parenchyma is relatively homogeneous in density. IMPRESSION: 1. Acute uncomplicated pancreatitis. 2. Hepatic steatosis. Reviewed, dictated and finalized at location B. [employer]
[2020-05-29 10:20] VITALS: BP 162/112; PULSE 102; RESP 18; TEMP 36.4; O2SAT 99
--- NOTE | 2020-05-29 10:27 | ED.GENADULT ---
HPI - General Adult General Chief complaint: Abdominal Pain <Arthur Andrade PA-C - Last Filed: 05/29/20 15:32> Stated complaint: right upper abd pain/hx pancreatitis <WILLI Johns Last Filed: 05/29/20 15:32> Time Seen by Provider: 05/29/20 10:16 <WILLI Johns Last Filed: 05/29/20 15:32> Source: patient <WILLI Johns Last Filed: 05/29/20 15:32> Mode of arrival: ambulatory <WILLI Johns Last Filed: 05/29/20 15:32> Limitations: no limitations <WILLI Johns Last Filed: 05/29/20 15:32> History of Present Illness HPI narrative: Patient presents with chief complaint of right upper abdominal/epigastric discomfort that has been progressively worsening over the past 4 days. Patient reported his pain is 10/10 this morning which is what brought him in. Patient states that he has a history of pancreatitis with his last flare being in March. He states he was hospitalized but never saw a pancreatitis specialist or GI doctor. Patient states that he is an alcoholic and has approximately 6-12 beers a day. Patient states even when he skips a day the he does not have withdrawal symptoms. Patient states that he began having a few episodes of vomiting this morning. Patient denies bloody vomiting or bloody diarrhea. Patient denies any allergies to any medications patient is from. Patient reports marijuana use but denies any other recreational drug use. Patient denies fever, chills, chest pain, shortness of breath, syncope. <WILLI Johns Last Filed: 05/29/20 15:32> Related Data Home medications: Home Medications Medication Instructions Recorded Confirmed Jamari Saunders See Rx Instructions .ROUTE .COMPLEX 03/15/20 03/18/20 atorvastatin 20 mg DAILY 03/15/20 03/18/20 clonidine HCl 0.1 mg BID 03/15/20 03/18/20 levothyroxine 200 mcg DAILY 03/15/20 03/18/20 olanzapine [Zyprexa] 5 mg PO DAILY PRN 03/15/20 03/18/20 <Arthur Andrade PA-C - Last Filed: 05/29/20 15:32> Allergies/adverse reactions: Allergies Allergy/AdvReac Type Severity Reaction Status Date / Time No Known Allergies Allergy Verified 05/29/20 11:36 <Arthur Andrade PA-C - Last Filed: 05/29/20 15:32> Review of Systems Review of Systems: Narrative: CONSTITUTIONAL: Denies fever, chills, or sweats. EYES: Denies visual changes, redness, or discharge. ENT: Denies rhinorrhea, congestion, sore throat, or otalgia. CARDIOVASCULAR: Denies chest pain, palpitations, or edema. RESPIRATORY: Denies cough or dyspnea. GASTROINTESTINAL: Reports right upper quadrant/epigastric abdominal pain, nausea, vomiting, denies diarrhea. GENITOURINARY: Denies dysuria or hematuria. SKIN: Denies rash or itching. MUSCULOSKELETAL: Denies back pain, myalgia, or joint pain NEUROLOGIC: Denies headache, numbness, dizziness, or weakness. PSYCHIATRIC: Denies anxiety or depression. <Arthur Adnrade PA-C - Last Filed: 05/29/20 15:32> [facility] Past Medical History Medical History: Medical History (Updated 05/29/20 @ 15:32 by Arthur Andrade PA-C) Alcohol abuse Anxiety Attention deficit disorder Depression Hemorrhoids Hepatic steatosis Hyperlipidemia Hypertension Hypothyroidism Pancreatitis Requiring hospitalization in February 2020 and May 2020, attributed to alcohol abuse. Schizoaffective disorder Seizures Last seizure in 2018. Spontaneous pneumothorax Thyroid cancer (~2000) Status post thyroidectomy. Tobacco dependence <Arthur Andrade PA-C - Last Filed: 05/29/20 15:32> Surgical History Surgical History: Surgical History History of chest tube placement Spontaneous left-sided pneumothorax. History of cholecystectomy History of thyroidectomy (~2000) <Arthur Andrade PA-C - Last Filed: 05/29/20 15:32> Family History Family History: Family History Fath
[2020-05-29 10:49] LABS: Basophils Percent Auto 0.3 % (0.2-1.2); Eosinophils Absolute Auto 0.6 K/mm3 (0-0.3); Eosinophils Percent Auto 4.7 % (0-4.4); Hematocrit 45.8 % (42.0-52.0); Hemoglobin 15.9 g/dL (14.0-18.0); Immature Granulocyte Absolute 0.05 K/mm3 (0.00-0.031); Immature Granulocyte Percent A 0.4 % (0-0.5); Lymphocytes Absolute Auto 1.81 K/mm3 (0.9-3.2); Lymphocytes Percent Auto 15.6 % (18.3-44.2); Mean Corpuscular HGB Conc 34.7 g/dl (32-36); Mean Corpuscular Hemoglobin 32.1 pg (26-34); Mean Corpuscular Volume 92.3 fl (80-100); Mean Platelet Volume 9.7 fl (7.4-10.4); Monocytes Absolute Auto 0.8 K/mm3 (0.1-0.6); Neutrophils Absolute Auto 8.3 K/mm3 (1.3-6.7); Platelet Count Result 316 k/mm3 (150-375); Red Blood Count 4.96 M/mm3 (4.6-6.20); Red Cell Distribution Width 12.7 % (11.5-14.5); White Blood Count 11.6 K/mm3 (4.5-10.0)
[2020-05-29] MEDS: SODIUM CHLORIDE 0.9% IV 1,000 ML 150 ML IV CONT (10:55)
[2020-05-29] MEDS: ONDANSETRON INJ 4 MG/2 ML VIAL IV PUSH (10:57)
[2020-05-29] MEDS: MORPHINE SULFATE (*CRX) 2 MG/ML INJ IV PUSH ×2 (10:58→12:34)
[2020-05-29 11:01] LABS: Alanine Aminotransferase 34 U/L (4-50); Albumin Level 4.6 g/dL (3.5-5.1); Alkaline Phosphatase 121 U/L (38-126); Anion Gap 10 mmol/L (8-16); Aspartate Amino Transferase 35 U/L (17-59); Blood Urea Nitrogen 7 mg/dL (9-20); Carbon Dioxide 26 mmol/L (22-30); Chloride 102 mmol/L (98-107); Estimated CRCL calculation 123 ml/min; Estimated Glomerular Filt Rate > 60; Glucose 169 mg/dL (75-110); Potassium 4.1 mmol/L (3.4-5.0); Sodium 138 mmol/L (137-145)
[2020-05-29 11:04] LABS: Lipase 3300 U/L (23-300)
[2020-05-29 11:28] LABS: Amphetamine Screen Urine Negative (Negative); Barbiturate Screen Urine Negative (Negative); Benzodiazepines Screen Urine Negative (Negative); Cannabinoid Screen Urine Positive (Negative); Cocaine Screen Urine Negative (Negative); Methadone Screen Urine Negative (Negative); Opiate Screen Urine Positive (Negative); Phencyclidine Screen Urine Negative (Negative)
[2020-05-29] MEDS: SODIUM CHLORIDE 0.9% IV 1,000 ML 999 ML IV CONT (12:34)
[2020-05-29 13:47] VITALS: BP 154/96; PULSE 75; RESP 18; O2SAT 99
--- NOTE | 2020-05-29 14:40 | PM.IMHP ---
H&P: HPI History of Present Illness Date/Time: 05/29/20 14:40 Chief complaint: Abdominal pain. Narrative: Luke Arriaga is a 34-year-old male with history of alcohol abuse and pancreatitis who presented to the emergency department earlier today for evaluation of abdominal pain. He is known to myself and the hospitalist service with an admission in February 2020 with pancreatitis after which he abstained from alcohol for approximately 2 weeks. Unfortunately he is back to drinking upwards of 12 beers a day. Over the past 4 days he notes a gradual onset of diffuse epigastric and left upper abdominal pain that he describes as sharp and unrelenting, similar to his previous episode of pancreatitis. He has not drank alcohol for 2 days and has not been eating much either but unfortunately he continues to have pain. Associated symptoms include nausea and vomiting. Currently he rates the pain 10/10, and gives no significant alleviating factors. Morphine has not provided him with much benefit. He denies fever, chills, and sweats. No hematemesis or melena, however he does note occasional bright red blood on the toilet tissue while wiping and thinks he may have hemorrhoids. Review of Systems Review of Systems: Narrative: Twelve systems were reviewed with pertinent positives and negatives as per HPI. Weight has remained stable. No recent cold or flu symptoms. A couple of family members did have COVID last month but he and his family members did not get sick. He denies cough and shortness of breath. No fever. He has never had signs or symptoms of alcohol withdrawal symptoms with his last hospitalization but does have a history of seizure several years ago. Many years ago he had a suicidal gesture but has depression is under control and he denies suicidal and homicidal ideations. Except as documented, all other systems were reviewed and are negative. [facility] Past Medical History Medical History Alcohol abuse Anxiety Attention deficit disorder Depression Hemorrhoids Hepatic steatosis Hyperlipidemia Hypertension Hypothyroidism Pancreatitis Requiring hospitalization in February 2020 and May 2020, attributed to alcohol abuse. Schizoaffective disorder Seizures Last seizure in 2018. Spontaneous pneumothorax Thyroid cancer (~2000) Status post thyroidectomy. Tobacco dependence Surgical History Surgical History History of chest tube placement Spontaneous left-sided pneumothorax. History of cholecystectomy History of thyroidectomy (~2000) Family History Family History Father Acute myocardial infarction Cerebrovascular accident Mother Family history of malignant neoplasm of thyroid Diabetes mellitus Social History Social History Social History: Surrogate decision maker: Rekha Arriaga, . Code status: Full code. Smoking packs per day: 2 Smoking cigarettes per day: 40.0 Years smoked: 27 Smoking pack-years: 54.00 Smoking status: Current every day smoker Tobacco type: cigarettes Second hand tobacco smoke exposure: Yes Additional smoking assessment comments: smokes marijuana daily Alcohol intake: current Drinks per week: 42 Substance use: current Substance use type: marijuana Other substance usage details: Daily marijuana use. Last use: 05/29/20 Additional living arrangements comments: Resides in a multi generation home in [place] to include his and 2 children. Additional occupation/education comments: Disabled due to underlying mental illness. Gender identity (if verbalized by the patient): Male Spiritual care concerns: No Meds Home Medications and Allergies Home Medications Medication Instructions Recorded Confirmed Type I
[2020-05-29] MEDS: MORPHINE SULFATE (*CRX) 4 MG/ML INJ 2 MG IV PUSH ×2 (15:08→19:47)
--- NOTE | 2020-05-29 15:30 | ADMGEN ---
This patient, Luke Arriaga, was admitted to Medical Room 261-01. Patient/family oriented to hospital policies and general routines including ID bracelet, bed and alarms, visiting hours, pain management, procedures, bathroom and other care routines, personal items, smoking policy, room service/diet, and visiting hours. Information on how to activate the Rapid Response Team has been discussed. Patient/Family are encouraged to report perceived risks to care and to ask questions if they do not understand what they are told or what they should do.
[2020-05-29] MEDS: HYDROmorphone HCL INJ (*CRX) 1 MG/ML SYR 0.5 MG IV PUSH ×2 (15:50→21:35)
[2020-05-29] MEDS: SODIUM CHLORIDE 0.9% IV 1,000 ML 100 ML IV CONT (15:51)
[2020-05-29 16:10] VITALS: BP 151/90; PULSE 78; RESP 17; TEMP 36.8; O2SAT 96; BMI 23.6
[2020-05-29 20:00] VITALS: BP 146/79; PULSE 82
[2020-05-29 22:00] VITALS: BP 146/79; PULSE 82; RESP 18; TEMP 36.4; O2SAT 96
[2020-05-29] MEDS: amLODIPine BESYLATE 5 MG TABLET PO (22:48)
[2020-05-30 02:00] VITALS: BP 145/91; PULSE 77; RESP 18; TEMP 36.6; O2SAT 96
[2020-05-30] MEDS: HYDROmorphone HCL INJ (*CRX) 1 MG/ML SYR 0.5 MG IV PUSH ×6 (02:37→19:26)
[2020-05-30] MEDS: SODIUM CHLORIDE 0.9% IV 1,000 ML 100 ML IV CONT (02:40)
[2020-05-30] MEDS: LEVOTHYROXINE SODIUM 100 MCG TABLET 200 MCG BY MOUTH (05:37)
[2020-05-30 05:59] LABS: Hematocrit 38.6 % (42.0-52.0); Hemoglobin 13.3 g/dL (14.0-18.0); Mean Corpuscular HGB Conc 34.5 g/dl (32-36); Mean Corpuscular Volume 92.8 fl (80-100); Mean Platelet Volume 9.9 fl (7.4-10.4); Platelet Count Result 263 k/mm3 (150-375); Red Blood Count 4.16 M/mm3 (4.6-6.20); Red Cell Distribution Width 12.3 % (11.5-14.5); White Blood Count 11.2 K/mm3 (4.5-10.0)
[2020-05-30 06:00] VITALS: BP 148/86; PULSE 90; RESP 18; TEMP 36.7; O2SAT 97
[2020-05-30 06:16] LABS: Add Urine Microscopic? YES; Amorphous Sediment Urine Moderate; Appearance Urine Turbid (Clear); Bilirubin Urine Negative (Negative); Blood Urine Negative (Negative); Color Urine Yellow (Yellow); Glucose Urine UA Negative (Negative); Ketones Urine Negative (Negative); Leukocyte Esterase Ur Negative LEU/UL (Negative); Nitrate Urine Negative (Negative); Protein Urine 1+ mg/dL (Negative); Specific Grav Ur 1.021 (1.001-1.035); Urobilinogen Urine Negative mg/dL (<2.0)
[2020-05-30 06:23] LABS: Alanine Aminotransferase 23 U/L (4-50); Albumin Level 3.5 g/dL (3.5-5.1); Alkaline Phosphatase 96 U/L (38-126); Anion Gap 5 mmol/L (8-16); Aspartate Amino Transferase 26 U/L (17-59); Bilirubin,Total 0.7 mg/dL (0.2-1.3); Blood Urea Nitrogen 5 mg/dL (9-20); Calcium 8.7 mg/dL (8.4-10.2); Carbon Dioxide 24 mmol/L (22-30); Chloride 106 mmol/L (98-107); Estimated CRCL calculation 141 ml/min; Estimated Glomerular Filt Rate > 60; Glucose 99 mg/dL (75-110); Potassium 3.6 mmol/L (3.4-5.0); Sodium 135 mmol/L (137-145)
[2020-05-30 06:38] LABS: Lipase 3925 U/L (23-300)
[2020-05-30 06:55] LABS: Thyroid Stimulating Hormone Reflex < 0.015 uIU/mL (0.465-4.68)
[2020-05-30 08:00] VITALS: BP 151/98; PULSE 93; RESP 22; TEMP 36.5; O2SAT 98
[2020-05-30] MEDS: amLODIPine BESYLATE 5 MG TABLET PO ×2 (08:37→16:34)
[2020-05-30] MEDS: THIAMINE HCL 100 MG TABLET PO (08:37)
[2020-05-30] MEDS: FOLIC ACID 1 MG TABLET PO (08:37)
[2020-05-30 11:24] LABS: Free T4 Free Thyroxine Reflex 0.93 ng/dL (0.78-2.19)
[2020-05-30] MEDS: SODIUM CHLORIDE 0.9% IV 1,000 ML 125 ML IV CONT (11:36)
[2020-05-30 12:24] LABS: Total Triiodothyronine (T3) 1.05 NG/ML (0.97-1.69)
[2020-05-30 14:03] LABS: Lipase 1332 U/L (23-300)
--- NOTE | 2020-05-30 16:13 | PM.IMPN ---
Progress Note: A&P Assessment and Plan (1) Acute pancreatitis: Qualifiers: Acute pancreatitis complication: no infection or necrosis Pancreatitis type: alcohol induced Qualified Code(s): K85.20 - Alcohol induced acute pancreatitis without necrosis or infection Code(s): K85.90 - Acute pancreatitis without necrosis or infection, unspecified Status: Acute Assessment and Plan: Acute pancreatitis is secondary to alcohol abuse with relapse after he did quit for approximately 2 weeks. LFTs and bilirubin are normal. Continue supportive care to include bowel rest, IV fluid rehydration, and antiemetics and analgesics as needed. Advance to clear liquids as lipase is improving significantly. (2) Alcohol abuse: Code(s): F10.10 - Alcohol abuse, uncomplicated Status: Acute Assessment and Plan: He reports that he quit drinking for 2 weeks after his last episode of pancreatitis but unfortunately relapsed. He is motivated to quit and spoke with care coordination regarding options for alcohol cessation including inpatient vs outpatient services. Continue thiamine and folic acid supplementation. Continue CIWA protocol. His last drink was Wed night 05/27. He has no hx of alcohol withdrawal seizures/DTs. CIWA score is 0-1 and he has no evidence of acute withdrawal. (3) Hypothyroidism: Code(s): E03.9 - Hypothyroidism, unspecified Status: Chronic Assessment and Plan: Due to thyroid cancer s/p thyroidectomy. He is on levothyroxine prior to admission which will be continued at 200mcg daily. TSH is undetectable given hx of thyroidectomy but free T4 and total T3 are normal. Continue to monitor. (4) Hypertension: Code(s): I10 - Essential (primary) hypertension Status: Acute Assessment and Plan: Blood pressures are elevated above target. This may, in part, be due to IV fluids required for acute pancreatitis. Blood pressures were elevated during his last stay and amlodipine was added but he did not start taking this. Amlodipine was resumed and will be increased to 10mg PO QD. Continue to monitor closely. (5) Hyperlipidemia: Code(s): E78.5 - Hyperlipidemia, unspecified Status: Chronic Assessment and Plan: Will check lipid panel. He is not on any antihyperlipidemics at this time. (6) Psychiatric illness: Code(s): F99 - Mental disorder, not otherwise specified Status: Acute Assessment and Plan: He has been diagnosed with depression, anxiety, ADD and schizoaffective disorder. He has no acute issues at this time including no hallucinations or thoughts of harming himself or others. He reports that his anxiety is fairly well-controlled and he has ways to manage it conservatively. He is currently on invega. He sees his psychiatrist regularly and will need to continue follow-up. (7) Tobacco dependence: Code(s): F17.200 - Nicotine dependence, unspecified, uncomplicated Status: Acute Assessment and Plan: Continue to encourage smoking cessation. He declines the need for a nicotine patch. Subjective Date/time seen: 05/30/20 16:13 Mr. Arriaga is a 34 y.o. male with PMH significant for alcohol abuse, pancreatitis, and thyroid cancer s/p thyroidectomy who is seen in follow-up for pancreatitis. He reports that he feels significantly better today. He notes minimal abdominal pain and has been up ambulating in the room without significant discomfort. He notes only mild pain with hiccups or coughing. Pain is better leaning forward as opposed to lying back. He is passing gas. He has no chest pain, palpitations, or shortness of breath. He is not coughing. He has no fever or chills. He has no nausea or vomiting. He is requesting to try clear liquids. He has expressed the desire to quit drinking. He knows that he needs to and understands the associated risks. His is at the bedside and providing encourag
[2020-05-30 16:32] VITALS: BP 150/90
[2020-05-30 20:00] VITALS: PULSE 68
[2020-05-30] MEDS: SODIUM CHLORIDE 0.9% IV 1,000 ML 75 ML IV CONT (20:12)
[2020-05-30 22:00] VITALS: BP 152/94; PULSE 92; RESP 20; TEMP 37.1; O2SAT 98
[2020-05-31] VITALS (7 sets, daily range): BP systolic 130–162; BP diastolic 11–99; PULSE 60–98; RESP 16–20; TEMP 36.5–37; O2SAT 98–100
[2020-05-31] MEDS: HYDROmorphone HCL INJ (*CRX) 1 MG/ML SYR 0.5 MG IV PUSH ×4 (00:47→12:52)
[2020-05-31] MEDS: hydrALAZINE HCL 20 MG/ML VIAL 10 MG IV PUSH (04:50)
[2020-05-31 05:40] LABS: Hemoglobin 14.2 g/dL (14.0-18.0); Mean Corpuscular HGB Conc 35.5 g/dl (32-36); Mean Corpuscular Volume 90.1 fl (80-100); Mean Platelet Volume 9.7 fl (7.4-10.4); Platelet Count Result 292 k/mm3 (150-375); Red Blood Count 4.44 M/mm3 (4.6-6.20); Red Cell Distribution Width 12.2 % (11.5-14.5); White Blood Count 7.6 K/mm3 (4.5-10.0)
[2020-05-31 05:55] LABS: Alanine Aminotransferase 23 U/L (4-50); Albumin Level 4.2 g/dL (3.5-5.1); Alkaline Phosphatase 113 U/L (38-126); Anion Gap 9 mmol/L (8-16); Aspartate Amino Transferase 30 U/L (17-59); Bilirubin,Total 0.6 mg/dL (0.2-1.3); Blood Urea Nitrogen 3 mg/dL (9-20); Calcium 9.6 mg/dL (8.4-10.2); Carbon Dioxide 25 mmol/L (22-30); Chloride 104 mmol/L (98-107); Cholesterol 225 mg/dL (0-200); Estimated CRCL calculation 141 ml/min; Estimated Glomerular Filt Rate > 60; Glucose 116 mg/dL (75-110); HDL Direct 48 mg/dL; Lipase 1024 U/L (23-300); Potassium 3.6 mmol/L (3.4-5.0); Sodium 138 mmol/L (137-145); Triglycerides 222 mg/dL (<150)
[2020-05-31 06:06] LABS: LDL Cholesterol Direct 127 mg/dL
[2020-05-31] MEDS: LEVOTHYROXINE SODIUM 100 MCG TABLET 200 MCG BY MOUTH (06:18)
[2020-05-31] MEDS: amLODIPine BESYLATE 5 MG TABLET 10 MG PO (09:06)
[2020-05-31] MEDS: THIAMINE HCL 100 MG TABLET PO (09:07)
[2020-05-31] MEDS: FOLIC ACID 1 MG TABLET PO (09:07)
[2020-05-31] MEDS: SODIUM CHLORIDE 0.9% IV 1,000 ML 125 ML IV CONT ×2 (09:49→18:12)
--- NOTE | 2020-05-31 09:50 | PC.NURSE ---
I called pharmacy to notify them that I was missing the 0900 dose of Atorvastatin
--- NOTE | 2020-05-31 10:39 | PM.IMPN ---
Progress Note: A&P Assessment and Plan (1) Acute pancreatitis: Qualifiers: Acute pancreatitis complication: no infection or necrosis Pancreatitis type: alcohol induced Qualified Code(s): K85.20 - Alcohol induced acute pancreatitis without necrosis or infection Code(s): K85.90 - Acute pancreatitis without necrosis or infection, unspecified Status: Acute Assessment and Plan: Acute pancreatitis is secondary to alcohol abuse with relapse after he did quit for approximately 2 weeks. LFTs and bilirubin are normal. Continue supportive care including IV fluid rehydration, antiemetics, and analgesics as needed. Advance to full liquids for today. Bowel function has returned. Continue to monitor. (2) Alcohol abuse: Code(s): F10.10 - Alcohol abuse, uncomplicated Status: Acute Assessment and Plan: He reports that he quit drinking for 2 weeks after his last episode of pancreatitis but unfortunately relapsed. He is motivated to quit and spoke with care coordination regarding options for alcohol cessation including inpatient vs outpatient services. Continue thiamine and folic acid supplementation. Continue CIWA protocol. His last drink was Wed night 05/27. He has no hx of alcohol withdrawal seizures/DTs. CIWA score is 0-1 and he has no evidence of acute withdrawal. (3) Hypothyroidism: Code(s): E03.9 - Hypothyroidism, unspecified Status: Chronic Assessment and Plan: Due to thyroid cancer s/p thyroidectomy. He is on levothyroxine prior to admission which will be continued at 200mcg daily. TSH is undetectable given hx of thyroidectomy but free T4 and total T3 are normal. Continue to monitor. (4) Hypertension: Code(s): I10 - Essential (primary) hypertension Status: Acute Assessment and Plan: Blood pressures are elevated above target but have improved mildly today. I suspect that IV fluids required for acute pancreatitis are contributing. Blood pressures were elevated during his last stay and amlodipine was added but he did not start taking this. Continue amlodipine. I suspect that his anxiety also contributes to his elevated blood pressure as he is an anxious person at baseline and follows with psychiatry for this. Continue to monitor closely. (5) Hyperlipidemia: Code(s): E78.5 - Hyperlipidemia, unspecified Status: Chronic Assessment and Plan: LDL is 127, HDL 48, triglycerides 222, total cholesterol 225. Will not start any treatment at this time and will defer to his primary care doctor. (6) Psychiatric illness: Code(s): F99 - Mental disorder, not otherwise specified Status: Acute Assessment and Plan: He has been diagnosed with depression, anxiety, ADD and schizoaffective disorder. He has no acute issues at this time and mood is stable. He reports that his anxiety is fairly well-controlled and he has ways to manage it conservatively. He is currently on invega. He sees his psychiatrist regularly and will need to continue follow-up. (7) Tobacco dependence: Code(s): F17.200 - Nicotine dependence, unspecified, uncomplicated Status: Acute Assessment and Plan: Continue to encourage smoking cessation. He declines the need for a nicotine patch. Subjective Date/time seen: 05/31/20 10:39 Mr. Arriaga is a 34 y.o. male with PMH significant for alcohol abuse, pancreatitis, and thyroid cancer s/p thyroidectomy who is seen in follow-up for pancreatitis. He tolerated clear liquids and is requesting to advance his diet today. He has not had any nausea or vomiting. He is passing gas and reports a small bowel movement earlier this morning. He reports very minimal pain today in his epigastrium. He is not having any chest pain, cough, or shortness of breath. He denies headaches, lightheadedness, and dizziness. He has no urinary complaints. He was hoping to go home today but I explained I would li
[2020-05-31] MEDS: ATORVASTATIN 20 MG TABLET PO (11:00)
[2020-05-31] MEDS: CALCIUM CARBONATE (TUMS) 500 MG (200 MG ELEMENTAL) PO (15:13)
[2020-05-31] MEDS: HYDROcodone/acetaminophen (*CRX) 5-325 MG TABLET 1 TAB PO ×2 (15:13→21:38)
[2020-06-01 02:00] VITALS: BP 154/82; PULSE 77; RESP 16; TEMP 36.4; O2SAT 98
[2020-06-01] MEDS: SODIUM CHLORIDE 0.9% IV 1,000 ML 125 ML IV CONT (02:32)
[2020-06-01] MEDS: HYDROcodone/acetaminophen (*CRX) 5-325 MG TABLET 1 TAB PO (03:32)
[2020-06-01 04:00] VITALS: BP 152/88; PULSE 73; RESP 16; TEMP 36.3; O2SAT 97
[2020-06-01] MEDS: LEVOTHYROXINE SODIUM 100 MCG TABLET 200 MCG BY MOUTH (06:09)
[2020-06-01 06:14] LABS: Hematocrit 39.8 % (42.0-52.0); Hemoglobin 13.9 g/dL (14.0-18.0); Mean Corpuscular HGB Conc 34.9 g/dl (32-36); Mean Corpuscular Volume 91.7 fl (80-100); Mean Platelet Volume 9.6 fl (7.4-10.4); Platelet Count Result 295 k/mm3 (150-375); Red Blood Count 4.34 M/mm3 (4.6-6.20); Red Cell Distribution Width 12.3 % (11.5-14.5); White Blood Count 6.9 K/mm3 (4.5-10.0)
[2020-06-01 06:38] LABS: Anion Gap 12 mmol/L (8-16); Blood Urea Nitrogen 3 mg/dL (9-20); Calcium 9.8 mg/dL (8.4-10.2); Carbon Dioxide 23 mmol/L (22-30); Chloride 104 mmol/L (98-107); Estimated CRCL calculation 141 ml/min; Estimated Glomerular Filt Rate > 60; Glucose 159 mg/dL (75-110); Lipase 697 U/L (23-300); Potassium 3.6 mmol/L (3.4-5.0); Sodium 139 mmol/L (137-145)
[2020-06-01 07:17] LABS: Hepatitis B Surface Antigen Negative (Negative)
[2020-06-01 07:23] LABS: HAV RESULT Negative (Negative); Hepatitis B Core IgM Result Negative (Negative)
[2020-06-01 07:35] LABS: Hepatitis C Virus Antibody Negative (Negative)
--- NOTE | 2020-06-01 09:26 | PM.DS ---
DS: Admitting Diagnosis Admitting Diagnosis Admitting Diagnosis: Abdominal pain. DS: Discharge Diagnosis Discharge Diagnosis (1) Acute pancreatitis: Qualifiers: Acute pancreatitis complication: no infection or necrosis Pancreatitis type: alcohol induced Qualified Code(s): K85.20 - Alcohol induced acute pancreatitis without necrosis or infection Code(s): K85.90 - Acute pancreatitis without necrosis or infection, unspecified Status: Acute Assessment and Plan: Acute pancreatitis is secondary to alcohol abuse with relapse after he did quit for approximately 2 weeks. Patient feeling much better today; anxious to leave. No n/v, tolerating diet, no abdominal pain. Lipase trending down. LFTs and bilirubin are normal. Advance to low fat diet today; if tolerating, then will discharge home on low fat diet. F/u with PCP in 1-2 weeks Will repeat labs early next week for further monitoring (2) Alcohol abuse: Code(s): F10.10 - Alcohol abuse, uncomplicated Status: Acute Assessment and Plan: He reports that he quit drinking for 2 weeks after his last episode of pancreatitis but unfortunately relapsed. He is motivated to quit and spoke with care coordination regarding options for alcohol cessation including inpatient vs outpatient services. His last drink was Mon night 05/27. He has no hx of alcohol withdrawal seizures/DTs. CIWA score is 0-1 and he has no evidence of acute withdrawal. Continue thiamine and folic acid supplementation at discharge. CIWA protocol during stay. F/u with PCP (3) Hypothyroidism: Code(s): E03.9 - Hypothyroidism, unspecified Status: Chronic Assessment and Plan: Due to thyroid cancer s/p thyroidectomy. TSH is undetectable given hx of thyroidectomy but free T4 and total T3 are normal. Continue levothyroxine (4) Hypertension: Code(s): I10 - Essential (primary) hypertension Status: Acute Assessment and Plan: Blood pressures are elevated above target during stay. Suspect that IV fluids required for acute pancreatitis are contributing, as well as anxiety from being in the hospital contributing. Blood pressures were elevated during his last stay and amlodipine was added but he did not start taking this. Continue amlodipine at discharge F/u with PCP for further management. (5) Hyperlipidemia: Code(s): E78.5 - Hyperlipidemia, unspecified Status: Chronic Assessment and Plan: LDL is 127, HDL 48, triglycerides 222, total cholesterol 225. Will not start any treatment at this time and will defer to his primary care doctor. (6) Psychiatric illness: Code(s): F99 - Mental disorder, not otherwise specified Status: Acute Assessment and Plan: He has been diagnosed with depression, anxiety, ADD and schizoaffective disorder. He has no acute issues at this time and mood is stable. He reports that his anxiety is fairly well-controlled and he has ways to manage it conservatively. He is currently on invega. He sees his psychiatrist regularly and will need to continue follow-up. (7) Tobacco dependence: Code(s): F17.200 - Nicotine dependence, unspecified, uncomplicated Status: Acute Assessment and Plan: Continue to encourage smoking cessation. He declines the need for a nicotine patch. (8) Hepatic steatosis: Code(s): K76.0 - Fatty (change of) liver, not elsewhere classified Status: Acute Assessment and Plan: Noted on imaging this hospital stay. Alcohol cessation discussed in detail during stay. Hepatitis panel negative F/u with PCP DS: Summary
[2020-06-01] MEDS: amLODIPine BESYLATE 5 MG TABLET 10 MG PO (09:44)
[2020-06-01] MEDS: ATORVASTATIN 20 MG TABLET PO (09:45)
[2020-06-01] MEDS: THIAMINE HCL 100 MG TABLET PO (09:45)
[2020-06-01] MEDS: FOLIC ACID 1 MG TABLET PO (09:45)
[2020-06-01 10:00] VITALS: BP 166/96; PULSE 104; RESP 16; TEMP 36.7; O2SAT 99
[2020-06-01 13:40] VITALS: BP 146/96; PULSE 94; RESP 17; TEMP 36.4; O2SAT 97
== END 2020-06-01 13:55 | disposition home or self-care (01) | DRG 282 ==
LOC: ANHED 10:25 → ANH2MED 12:47
PROVIDERS: Physician Assistant; Admitting Provider Family Medicine; Emergency Provider Emergency Medicine; Visit Provider Physician Assistant
DX: K85.20 Alcohol induced acute pancreatitis without necrosis or infection (principal); F10.10 Alcohol abuse, uncomplicated; E03.9 Hypothyroidism, unspecified; E78.5 Hyperlipidemia, unspecified; I10 Essential (primary) hypertension; F41.8 Other specified anxiety disorders; F98.8 Other specified behavioral and emotional disorders with onset usually occurring in childhood and adolescence; F25.9 Schizoaffective disorder, unspecified; K76.0 Fatty (change of) liver, not elsewhere classified; K70.9 Alcoholic liver disease, unspecified; F17.200 Nicotine dependence, unspecified, uncomplicated; Z85.850 Personal history of malignant neoplasm of thyroid; Z90.49 Acquired absence of other specified parts of digestive tract
CPT/HCPCS: 36415; 74177; 80048; 80053; 80061; 80074; 80307; 81001; 83690; 83735; 84439; 84443; 84480; 85025; 85027; 96361; 96374; 96375; 96376; 99285; A9270; G0378; G0379; J0131; J0360; J1170; J2270; J2405; J7030; Q9967

== ENCOUNTER → 2021-03-02 11:07 | Emergency (ER) | payer OTHER, SELFPAY | END | disposition left against medical advice (07) | DX: Z53.21 Procedure and treatment not carried out due to patient leaving prior to being seen by health care provider (principal) | CPT/HCPCS: 99199 ==

== ENCOUNTER 2021-03-03 02:50 | Observation (INO) | payer OTHER, SELFPAY ==
[2021-03-03] VITALS (21 sets, daily range): BP systolic 149–164; BP diastolic 92–104; PULSE 63–99; RESP 13–23; TEMP 36.3–36.9; O2SAT 94–99; BMI 23.3
--- NOTE | ~2021-03-03 | CT_ITS ---
EXAMINATION: CT abdomen pelvis w con DATE: 03/03/2021 05:15 INDICATION: Epigastric pain for 3 days. History of pancreatitis. TECHNIQUE: Computed tomography (CT) of the abdomen and pelvis was performed with 100 cc Omnipaque 350 intravenous contrast. Automated exposure control and iterative reconstruction technique were employe d. Exam dose: 309.25 mGy-cm total exam DLP. COMPARISON: 05/2020 CT abdomen pelvis FINDINGS: There is discoid atelectasis or scarring involving the lung bases. Normal heart size. No pericardial or pleural effusion. Status post cholecystectomy. The liver, bile ducts, spleen, and adrenal glands and kidneys are unrema rkable. There is enlargement of the pancreatic head and peripancreatic fat stranding, most prominent at the p ancreatic head and to a lesser extent the body of the pancreas, consistent with acute uncomplicated p ancreatitis. No abscess abnormal cystic collection is identified. No pancreatic calcification. Is fat stranding around the duodenum likely secondary to pancreatitis. Normal caliber of the abdominal aorta. No intraperitoneal or retroperitoneal or pelvic mass lesion or adenopathy or ascites. The urinary bladder and prostate gland are unremarkable. No bowel obstruction, bowel wall thickening, pneumatosis or intraperitoneal free air. Normal appendix . IMPRESSION: Acute pancreatitis Reviewed, dictated and finalized at [facility]. Reviewed, dictated and finalized at [facility]. IMPRESSION: Acute pancreatitis
--- NOTE | ~2021-03-03 | XR_ITS ---
XR chest 2V DATE: 03/03/2021 03:51 INDICATION: Chest and epigastric pain for 3 days. Midsternal chest pain. TECHNIQUE: PA and lateral views COMPARISON: None FINDINGS: There is mild discoid atelectasis or scarring at the right lung base. No pulmonary consolid ation, pleural effusion, pulmonary vascular congestion or pneumothorax. Normal heart size. No hilar o r mediastinal enlargement. Included skeletal structures are unremarkable. IMPRESSION: Mild discoid atelectasis or scarring at the right lung base Reviewed, dictated and finalized at [facility].
--- NOTE | 2021-03-03 02:52 | ECG_ITS ---
Measurements Intervals Burt Rate: 76 P: 78 AL: 153 QRS: 72 QRSD: 86 T: 57 QT: 337 QTc: 380 Interpretive Statements SINUS RHYTHM BASELINE WANDER- V2-V4 NORMAL ECG Electronically Signed On 03-03-2021 7:07:27 CDT by Mathieu Schmidt D.O.
[2021-03-03 03:44] LABS: Basophils Absolute Auto 0.1 K/mm3 (0.0-0.1); Basophils Percent Auto 0.8 % (0.2-1.2); Eosinophils Absolute Auto 0.4 K/mm3 (0-0.3); Hematocrit 45.7 % (42.0-52.0); Hemoglobin 15.6 g/dL (14.0-18.0); Immature Granulocyte Absolute 0.02 K/mm3 (0.00-0.031); Immature Granulocyte Percent A 0.2 % (0-0.5); Lymphocytes Absolute Auto 2.89 K/mm3 (0.9-3.2); Lymphocytes Percent Auto 32.1 % (18.3-44.2); Mean Corpuscular HGB Conc 34.1 g/dl (32-36); Mean Corpuscular Hemoglobin 31.8 pg (26-34); Mean Corpuscular Volume 93.1 fl (80-100); Mean Platelet Volume 9.9 fl (7.4-10.4); Monocytes Absolute Auto 0.9 K/mm3 (0.1-0.6); Monocytes Percent Auto 10.3 % (2.6-8.5); Neutrophils Absolute Auto 4.7 K/mm3 (1.3-6.7); Neutrophils Percent Auto 52.6 % (45.5-73.1); Platelet Count Result 290 k/mm3 (150-375); Red Blood Count 4.91 M/mm3 (4.6-6.20); Red Cell Distribution Width 12.4 % (11.5-14.5)
[2021-03-03 03:47] LABS: Anion Gap 8 mmol/L (8-16); Blood Urea Nitrogen 9 mg/dL (9-20); Calcium 9.9 mg/dL (8.4-10.2); Carbon Dioxide 21 mmol/L (22-30); Chloride 108 mmol/L (98-107); Estimated CRCL calculation 108 ml/min; Estimated Glomerular Filt Rate > 60; Glucose 119 mg/dL (65-110); Potassium 4.2 mmol/L (3.4-5.0); Sodium 137 mmol/L (137-145)
--- NOTE | 2021-03-03 03:47 | ED.CHESTPAIN ---
HPI - Chest Pain General Chief Complaint: Chest Pain Stated Complaint: epigastric pain x 3 days History of Present Illness HPI narrative: 35 yo male w/ h/o alcoholic pancreatitis presents to the ED c/o epigastric pain. He has moderate pain. radiates to back. Burning. Associated with nausea. Feels like pancreatitis. He has been drinking prior to onset of symptoms. Related Data Home Medications Medication Instructions Recorded Confirmed Jamari Saunders See Rx Instructions .ROUTE .COMPLEX 03/15/20 03/03/21 levothyroxine 200 mcg DAILY 03/15/20 03/03/21 haloperidol 5 mg PO DAILY 03/03/21 03/03/21 Allergies Allergy/AdvReac Type Severity Reaction Status Date / Time No Known Allergies Allergy Verified 03/03/21 07:51 Review of Systems Review of Systems: All systems reviewed & are unremarkable except as noted in HPI and below Constitutional: Constitutional: Reports fever(s) ENT: Denies dizziness Cardiovascular: Cardiovascular: Denies chest pain Respiratory: Respiratory: Denies dyspnea Gastrointestinal: Gastrointestinal: Denies diarrhea and Denies vomiting Neurologic: Denies confusion, Denies dizziness and Denies weakness PMFSH Past Medical History Medical History Alcohol abuse Anxiety Attention deficit disorder Chronic diarrhea Depression Hemorrhoids Hepatic steatosis History of abscessed tooth requiring surgical drainage Hyperlipidemia Hypertension Hypothyroidism Pancreatitis Requiring hospitalization in Feb 2020, May 2020 and Feb 2021 attributed to alcohol abuse. Schizoaffective disorder Seizures Last seizure in 2018. Spontaneous pneumothorax Thyroid cancer (~2000) Status post thyroidectomy. Tobacco dependence Surgical History Surgical History History of chest tube placement Spontaneous left-sided pneumothorax. History of cholecystectomy History of thyroidectomy (~2000) Hx of umbilical hernia repair Family History Family History Father Acute myocardial infarction Cerebrovascular accident Mother Family history of malignant neoplasm of thyroid Diabetes mellitus Social History Social History Social History: Lives at home with his mother, father, brother, and one of his two children (other child living with GF now). Tobacco, alcohol and drug use as mentioned ablove. Surrogate decision maker: Rekharacquel Arriaga, . Code status: Full code. Smoking packs per day: 1.5 Smoking cigarettes per day: 30.0 Years smoked: 30 Smoking pack-years: 45.00 Smoking status: Current every day smoker Tobacco type: cigarettes Second hand tobacco smoke exposure: Yes Additional smoking assessment comments: smokes marijuana daily Alcohol intake: current Drinks per week: 84 Alcohol use details: Patient drinks between 6-12 beers a day. Substance use: current Substance use type: marijuana Other substance usage details: Daily marijuana use. Last use: 05/29/20 Additional living arrangements comments: Resides in a multi generation home in [place] to include his and 2 children. Additional occupation/education comments: Disabled due to underlying mental illness. Gender identity (if verbalized by the patient): Male Sexual Orientation (if Verbalized by the Patient): Straight or Heterosexual Spiritual care concerns: No Exam Const: General: no acute distress and alert Orientation/consciousness: patient oriented x3 HENMT: Head: normal to inspection Neck: Neck: normal visual inspection Resp: Effort & Inspection: normal respiratory effort Auscultation: clear to auscultation bilaterally, no rales, no rhonchi and no wheezes Cardio: Jugular venous distension: no JVD Rate: regular rate Rhythm: regular rhythm Heart sounds: no
[2021-03-03 03:48] LABS: INR 0.8; Prothrombin Time 11.3 Seconds (11.1-14.7)
--- NOTE | 2021-03-03 03:48 | PC.NURSE ---
Patient taken to xray.
[2021-03-03 03:49] LABS: Partial Thromboplastin Time 24.9 SECONDS (22.3-36.8)
--- NOTE | 2021-03-03 03:49 | PC.NURSE ---
Called lab to add on hepatic panel.
[2021-03-03 03:56] LABS: Lipase 668 U/L (23-300)
[2021-03-03 03:59] LABS: Alanine Aminotransferase 37 U/L (4-50); Albumin Level 4.2 g/dL (3.5-5.1); Alkaline Phosphatase 144 U/L (38-126); Aspartate Amino Transferase 30 U/L (17-59); Bilirubin,Total 0.4 mg/dL (0.2-1.3); Troponin I < 0.012 ng/mL (0.000-0.034)
[2021-03-03] MEDS: SODIUM CHLORIDE 0.9% IV 1,000 ML 999 ML IV CONT (04:53)
[2021-03-03] MEDS: MORPHINE SULFATE (*CRX) 4 MG/ML INJ IV PUSH ×2 (04:53→06:40)
--- NOTE | 2021-03-03 04:58 | PC.NURSE ---
Patient being taken to CT.
[2021-03-03] MEDS: PANTOPRAZOLE SODIUM IV 40 MG VIAL IV PUSH (05:11)
--- NOTE | 2021-03-03 06:50 | ADMGEN ---
This patient, Luke Arriaga, was admitted to 3 [facility] Surg Room 302-01. Patient/family oriented to hospital policies and general routines including ID bracelet, bed and alarms, visiting hours, pain management, procedures, bathroom and other care routines, personal items, smoking policy, room service/diet, and visiting hours. Information on how to activate the Rapid Response Team has been discussed. Patient/Family are encouraged to report perceived risks to care and to ask questions if they do not understand what they are told or what they should do.
--- NOTE | 2021-03-03 06:55 | ADMGEN ---
This patient, Luke Arriaga, was admitted to 3 [facility] Surg Room 302-01. Patient/family oriented to hospital policies and general routines including ID bracelet, bed and alarms, visiting hours, pain management, procedures, bathroom and other care routines, personal items, smoking policy, room service/diet, and visiting hours. Information on how to activate the Rapid Response Team has been discussed. Patient/Family are encouraged to report perceived risks to care and to ask questions if they do not understand what they are told or what they should do.
[2021-03-03] MEDS: SODIUM CHLORIDE 0.9% IV 1,000 ML 200 ML IV CONT ×3 (06:57→16:51)
[2021-03-03] MEDS: ALBUTEROL SULFATE NEB 2.5 MG/0.5 ML INH 5 MG INHALATION (07:58)
[2021-03-03] MEDS: IPRATROPIUM BR 0.02% INH SOLN 0.5 MG/2.5 ML VIAL INHALATION ×3 (07:58→20:28)
[2021-03-03 08:13] LABS: Troponin I < 0.012 ng/mL (0.000-0.034)
[2021-03-03] MEDS: MORPHINE SULFATE (*CRX) 2 MG/ML INJ IV PUSH (08:24)
--- NOTE | 2021-03-03 08:28 | PM.IMHP ---
H&P: HPI History of Present Illness Date/Time: PATIENT ADMITTED UNDER OBSERVATION 03/03/21 08:28 Chief Complaint: Abdominal pain Narrative: 35yo male with alcoholism, hx of pancreatitis and schizoaffective disorder who presents with complaints of abdominal pain. Patient has had long history of alcoholism since he was a teenager. He was in drug and alcohol rehab around age 15 but nothing since. There have been long stretches of sobriety lasting few years. He has never had alcohol withdrawal symptoms he states. He has a history of seizures with his last seizure in 2018 but he does not believe this was related to alcohol withdrawal. Patient currently is drinking 6-12 beers a day. He has had 2 previous hospitalizations for pancreatitis. Around 3 days ago patient awoke with abdominal pain. It is in his lower chest and upper abdomen. When asked to describe pain he states it ?just hurts?. He has been taking ibuprofen 600 mg without benefit. Food made the symptoms worse. No fever or chills. No nausea or vomiting. He does have diarrhea 5-10 bowel movements a day since he was a child. He has had multiple colonoscopies without a clear diagnosis. He is not lactose intolerant. He does not believe that he has celiac disease. No melena but states that he ?always have blood in my stool? that is red in color. The remainder of the ROS was negative. He does smoke marijuana as well. He states he smokes ?a lot, all day every day?. He has a history of drug use but no history of IV drug use. He declines HIV testing. He presents to the emergency room for evaluation for persistent abdominal pain. In the emergency room, patient was hemodynamically stable. He was afebrile. Blood pressure was elevated probably related to pain. CBC was normal. CMP was essentially normal. Troponin was negative x2. Lipase was 668. Chest x-ray showed mild discoid atelectasis or scarring at the right lung base. CT of the abdomen and pelvis shows enlargement of the pancreatic head and peripancreatic fat stranding most prominent at the pancreatic head and to a lesser extent the body of the pancreas consistent with acute uncomplicated pancreatitis. No pancreatic calcifications noted. There is fat stranding around the duodenum likely secondary to pancreatitis. No other acute findings noted. EKG showed normal sinus rhythm; essentially normal EKG. Patient was given aspirin morphine and Protonix. Zofran was given. He was started on IV fluids. Nebulizer treatments were also ordered. The ED note is not available for review at this time. Patient was admitted for further care. Patient states morphine is not helping and that he usually receives Dilaudid with benefit. Review of Systems Review of Systems: All systems reviewed & are unremarkable except as noted in HPI and below PMFSH Past Medical History Medical History (Updated 03/03/21 @ 08:58 by Sal Ho MD) Alcohol abuse Anxiety Attention deficit disorder Chronic diarrhea Depression Hemorrhoids Hepatic steatosis History of abscessed tooth requiring surgical drainage Hyperlipidemia Hypertension Hypothyroidism Pancreatitis Requiring hospitalization in Feb 2020, May 2020 and Feb 2021 attributed to alcohol abuse. Schizoaffective disorder Seizures Last seizure in 2018. Spontaneous pneumothorax Thyroid cancer (~2000) Status post thyroidectomy. Tobacco dependence Surgical History Surgical History (Updated 03/03/21 @ 08:50 by Sal Ho MD) History of chest tube placement Spontaneous left-sided pneumothorax. History of cholecystectomy History of thyroidectomy (~2000) Hx of umbilical hernia repair Family History Family History Father Acute myocardial infarction Cerebrovascular accident Mother Family history of malignant neoplasm of thyroid Diabetes mellitus Social H
[2021-03-03 10:02] LABS: Troponin I < 0.012 ng/mL (0.000-0.034)
[2021-03-03] MEDS: FOLIC ACID 1 MG/0.2 ML INJ IV PUSH (10:11)
[2021-03-03] MEDS: THIAMINE HCL 200 MG/2 ML VIAL 100 MG IV PUSH (10:11)
[2021-03-03] MEDS: HALOPERIDOL 5 MG TABLET PO (10:12)
[2021-03-03] MEDS: MULTIVITAMINS THERAPEUTIC TAB (*BKC) 1 TABLET PO (10:12)
[2021-03-03] MEDS: LEVOTHYROXINE SODIUM 100 MCG TABLET 200 MCG PO (10:12)
[2021-03-03] MEDS: HYDROmorphone HCL INJ (*CRX) 1 MG/ML SYR 0.5 MG IV PUSH ×4 (10:16→20:50)
[2021-03-03] MEDS: ALBUTEROL SULFATE NEB 2.5 MG/0.5 ML INH INHALATION ×2 (14:19→20:28)
[2021-03-03] MEDS: chlordiazePOXIDE (*CRX) 25 MG CAPSULE PO (21:49)
[2021-03-04] VITALS (9 sets, daily range): BP systolic 143–163; BP diastolic 99–102; PULSE 60–90; RESP 18–20; TEMP 36.6–36.9; O2SAT 93–98
[2021-03-04] MEDS: HYDROmorphone HCL INJ (*CRX) 1 MG/ML SYR 0.5 MG IV PUSH ×4 (00:29→12:08)
[2021-03-04] MEDS: IPRATROPIUM BR 0.02% INH SOLN 0.5 MG/2.5 ML VIAL INHALATION ×2 (01:20→10:06)
[2021-03-04] MEDS: ALBUTEROL SULFATE NEB 2.5 MG/0.5 ML INH INHALATION ×2 (01:20→10:06)
[2021-03-04] MEDS: SODIUM CHLORIDE 0.9% IV 1,000 ML 200 ML IV CONT ×2 (02:45→07:26)
[2021-03-04] MEDS: LEVOTHYROXINE SODIUM 100 MCG TABLET 200 MCG PO (05:29)
[2021-03-04 06:32] LABS: Alanine Aminotransferase 25 U/L (4-50); Albumin Level 3.6 g/dL (3.5-5.1); Alkaline Phosphatase 114 U/L (38-126); Anion Gap 7 mmol/L (8-16); Aspartate Amino Transferase 23 U/L (17-59); Bilirubin,Total 0.6 mg/dL (0.2-1.3); Carbon Dioxide 21 mmol/L (22-30); Chloride 106 mmol/L (98-107); Cholesterol 192 mg/dL (0-200); Estimated CRCL calculation 140 ml/min; Estimated Glomerular Filt Rate > 60; Glucose 92 mg/dL (65-110); HDL Direct 57 mg/dL; Lipase 727 U/L (23-300); Potassium 3.7 mmol/L (3.4-5.0); Sodium 134 mmol/L (137-145); Triglycerides 179 mg/dL (<150)
[2021-03-04 06:34] LABS: LDL Cholesterol Direct 99 mg/dL
[2021-03-04] MEDS: PANTOPRAZOLE SODIUM IV 40 MG VIAL IV PUSH (08:29)
[2021-03-04] MEDS: THIAMINE HCL 200 MG/2 ML VIAL 100 MG IV PUSH (08:29)
[2021-03-04] MEDS: HALOPERIDOL 5 MG TABLET PO (08:29)
[2021-03-04] MEDS: FOLIC ACID 1 MG/0.2 ML INJ IV PUSH (08:29)
[2021-03-04] MEDS: MULTIVITAMINS THERAPEUTIC TAB (*BKC) 1 TABLET PO (08:29)
[2021-03-04 08:52] LABS: IFOB Positive Control Positive; Immunochemical Fecal Occult Bl Negative (N)
[2021-03-04 09:00] LABS: Blood Urea Nitrogen < 2 mg/dL (9-20)
--- NOTE | 2021-03-04 15:41 | PM.DS ---
DS: Admitting Diagnosis Admitting Diagnosis Abd pain DS: Discharge Diagnosis Discharge Diagnosis (1) Acute pancreatitis: Qualifiers: Acute pancreatitis complication: no infection or necrosis Pancreatitis type: alcohol induced Qualified Code(s): K85.20 - Alcohol induced acute pancreatitis without necrosis or infection Code(s): K85.90 - Acute pancreatitis without necrosis or infection, unspecified Status: Acute Assessment and Plan: Patient presented with epigastric pain, elevated lipase and radiographic findings consistent with pancreatitis. Most likely related to his alcoholism. He was educated extensively about the benefits of abstaining from alcohol use. Explained that even 1 alcoholic drink could contribute to pancreatitis. On admission to the floor, his abdominal pain was much impoved so he was started on a clear liquid diet. He advanced to a low-fat diet without problems. We used narcotics for pain control. Triglyceride level normal. Lipase on repeat was mildly elevated again but clinically he feels well and is requesting discharge. His narcotics were stopped and he remained pain free. (2) Alcohol abuse: Code(s): F10.10 - Alcohol abuse, uncomplicated Status: Acute Assessment and Plan: Patient was educated about the benefits of abstaining from alcohol use. Explained in detail that he will continue to have episodes of pancreatitis even with drinking small amounts of alcohol. He voices understanding this and is interested in quitting alcohol. Care coordination was consulted to provide information about alcohol rehab. We started thiamine and folate. Librium was available as needed for signs or symptoms of withdrawal but only needed one dose. CIWA score was 1-3. (3) Hypertension: Code(s): I10 - Essential (primary) hypertension Status: Acute Assessment and Plan: Patient's blood pressure was elevated on admission felt related to pain. On chart review however patient does seem to have mildly elevated blood pressure at prior hospitalizations although these hospitalization have also been related to pancreatitis. BP still elevated so plan for home with [facility] (4) Psychiatric illness: Code(s): F99 - Mental disorder, not otherwise specified Status: Acute Assessment and Plan: Patient with chronic psychiatric illnesses being treated with daily Haldol and Invega IM every 3 months. His mood remained stable. We continued his current medications. (5) Chronic diarrhea: Code(s): K52.9 - Noninfective gastroenteritis and colitis, unspecified Status: Acute Assessment and Plan: Patient states he has a history of chronic diarrhea since he was a child. Etiology is elusive. Suspect alcohol is contributing to this issue. Stool guaiac was negative. Celiac panel and IBD panel pending. He is having formed stools now so probably more likely related to his alcholism. (6) Hypothyroidism: Code(s): E03.9 - Hypothyroidism, unspecified Status: Chronic Assessment and Plan: Patient's TSH last year was less than 0.015. Free T4 was normal. Most likely they are suppressing his TSH due to his thyroid cancer. We continued his levothyroxine. (7) Marijuana abuse: Code(s): F12.10 - Cannabis abuse, uncomplicated Status: Acute Assessment and Plan: Patient was educated about the benefits of marijuana cessation. Patient however feels this is is beneficial to his psychiatric illness. (8) Tobacco dependence: Code(s): F17.200 - Nicotine dependence, unspecified, uncomplicated Status: Acute Assessment and Plan: Patient was educated about the benefits of smoking cessation. I did explain that the patient is developing pulmonary exam findings consistent with COPD. Strongly encouraged him to stop smoking. Nebulizer treatments were ordered. DS: Summary Hospital Course Reas
--- NOTE | 2021-03-06 13:23 | PC.NURSE ---
Stool WBC- negative. Dr. Georgia garcia.
[2021-03-08 10:10] LABS: ANCA Screen Negative (Negative); Myeloperoxidase Ab <1.0 AI (<1.0); Proteinase-3 Ab <1.0 AI (<1.0); S cerevisiae Ab (IgA) 4.8 U (<=20.0); S cerevisiae Ab (IgG) 3.8 U (<=20.0)
[2021-03-10 20:50] LABS: Gliadin AB, IgG 6 Units (<20); Reticulin IgA Negative (Negative); TTG IGA AB 1 U/mL (<4)
--- NOTE | 2021-03-13 08:05 | PC.NURSE ---
Celiac and IBD are negative. Dr. Georgia garcia.
--- NOTE | 2021-03-18 13:23 | PC.NURSE ---
IBD/ Celiac are negative. Stool WBC are negative. O&P are negative. Dr. Georgia garcia.
== END 2021-03-04 16:15 | disposition home or self-care (01) ==
LOC: ANHED 03:42 → ANH3MEDSUR 14:07
PROVIDERS: Admitting Provider Internal Medicine; Emergency Provider Emergency Medicine; PCP Family Medicine; Visit Provider Internal Medicine
DX: K85.20 Alcohol induced acute pancreatitis without necrosis or infection (principal); F10.10 Alcohol abuse, uncomplicated; F99 Mental disorder, not otherwise specified; K52.9 Noninfective gastroenteritis and colitis, unspecified; I10 Essential (primary) hypertension; E78.5 Hyperlipidemia, unspecified; F25.9 Schizoaffective disorder, unspecified; F98.8 Other specified behavioral and emotional disorders with onset usually occurring in childhood and adolescence; E89.0 Postprocedural hypothyroidism; F41.8 Other specified anxiety disorders; Z85.850 Personal history of malignant neoplasm of thyroid; K76.0 Fatty (change of) liver, not elsewhere classified; F17.210 Nicotine dependence, cigarettes, uncomplicated; F12.90 Cannabis use, unspecified, uncomplicated
CPT/HCPCS: 36415; 71046; 74177; 80048; 80053; 80061; 80076; 82274; 83516; 83690; 84484; 85025; 85610; 85730; 86021; 86255; 86671; 87177; 87209; 89055; 93005; 94640; 96361; 96374; 96375; 96376; 99285; A9270; C9113; G0378; G0379; J1170; J2270; J3411; J7030; Q9967

== ENCOUNTER 2021-05-02 02:24 | Day surgery (SDC) | payer OTHER, SELFPAY ==
[2021-04-17 13:45] VITALS: BMI 22.8
[2021-05-02 10:08] VITALS: BP 134/104; PULSE 98; RESP 20; TEMP 36.1
[2021-05-02] MEDS: LACTATED RINGERS 1,000 ML 150 ML IV CONT (10:24)
--- NOTE | 2021-05-02 10:26 | WPDANESEPPF ---
Anes - Initial Pre Proc Eval Procedure: Operation Date: 05/02/21 11:00 Proposed Procedures p Colonoscopy - Seferino Rosenbaum MD Date/Time: 05/02/21 10:26 Surgeon: Seferino Rosenbaum MD Pre Op Diagnosis: diarrhea, colitis Patient Data Age: 35 Gender: M Height: 1.75 m Weight: 66.7 kg Last Vital Signs Temp 97 F L 05/02/21 10:08 Pulse 98 05/02/21 10:08 Resp 20 05/02/21 10:08 BP 134/104 H 05/02/21 10:08 Allergies Allergy/AdvReac Type Severity Reaction Status Date / Time No Known Allergies Allergy Verified 05/02/21 10:04 Home Medications Medication Instructions Recorded Confirmed Type Invega Trinza See Rx Instructions .ROUTE .COMPLEX 03/15/20 04/17/21 History amlodipine 5 mg tablet 5 mg PO DAILY #30 tablet 04/03/21 04/17/21 Rx haloperidol 5 mg tablet 5 mg PO DAILY 04/03/21 04/17/21 History famotidine 20 mg tablet 20 mg PO BID #60 tablet 04/29/21 Rx levothyroxine 200 mcg tablet 200 mcg PO . q.a.m. #30 tablet 04/29/21 Rx Patient hx anesthesia problems: none Family hx anesthesia problems: none Results Review: All pre-operative results and documents have been reviewed as part of the pre-operative evaluation. [facility] Past Medical History Medical History (Updated 04/03/21 @ 14:26 by Ecotr Ferrer MD) Acute alcoholic pancreatitis Acute pancreatitis Alcohol abuse Alcohol abuse Anxiety Attention deficit disorder BMI 23.0-23.9, adult Chronic diarrhea Depression DVT prophylaxis Gastro-esophageal reflux disease without esophagitis Hemorrhoids Hepatic steatosis History of abscessed tooth requiring surgical drainage Hyperlipidemia Hypertension Hypothyroidism Pancreatitis Requiring hospitalization in Feb 2020, May 2020 and Feb 2021 attributed to alcohol abuse. Psychiatric illness Schizoaffective disorder Seizures Last seizure in 2018. Spontaneous pneumothorax Thyroid cancer (~2000) Status post thyroidectomy. Tobacco dependence Surgical History Surgical History History of chest tube placement Spontaneous left-sided pneumothorax. History of cholecystectomy History of thyroidectomy (~2000) Hx of umbilical hernia repair Family History Family History Father Acute myocardial infarction Cerebrovascular accident Mother Family history of malignant neoplasm of thyroid Diabetes mellitus Social History Social History Social History: Lives at home with his mother, father, brother, and one of his two children (other child living with GF now). Tobacco, alcohol and drug use as mentioned ablove. Surrogate decision maker: Rekha Arriaga, . Code status: Full code. Smoking packs per day: 1.5 Smoking cigarettes per day: 30.0 Years smoked: 29 Smoking pack-years: 43.50 Smoking status: Current every day smoker Tobacco type: cigarettes Second hand tobacco smoke exposure: Yes Additional smoking assessment comments: smokes marijuana daily Alcohol intake: former Drinks per week: 42 Alcohol use details: drank a 6 pack per day quit 2 months ago Substance use: current Substance use type: marijuana Other substance usage details: Daily marijuana use. Last use: 05/29/20 Living arrangements: with family Additional living arrangements comments: Resides in a multi generation home in [place] to include his and 2 children. Additional occupation/education comments: Disabled due to underlying mental illness. Gender identity (if verbalized by the patient): Male Sexual Orientation (if Verbalized by the Patient): Straight or Heterosexual Spiritual care concerns: No Anes - Eval Final PreProcedure Day of Procedure 05/02/21 10:26 Patient weight: normal Heart: regular rate and rhythm Lungs: clear to auscultation Airway: Mallampati scale
--- NOTE | 2021-05-02 10:35 | PM.HPGS ---
History of Present Illness History of Present Illness Consent: Risks, benefits, and alternatives have been discussed and questions answered. Patient agrees to proceed with procedure. Chief complaint: diarrhea, colitis Narrative: Luke Arriaga is a 35 year old male with chronic diarrhea and had colonoscopy few years ago, also former alcoholic with pancreatitis. Review of Systems Constitutional: Constitutional: Denies headache(s) and Denies weakness Eyes: Eyes: Denies blurry vision ENT: Reports Normal hearing present, Denies headache(s) and Denies neck pain Cardiovascular: Cardiovascular: Denies chest pain and Denies dyspnea Respiratory: Respiratory: Denies dyspnea Gastrointestinal: Gastrointestinal: Reports no additional gastrointestinal complaints Genitourinary: Genitourinary: Denies dysuria Musculoskeletal: Musculoskeletal: Denies neck pain Integumentary/Breasts: Skin/Breast: Denies dry skin Neurologic: Reports Normal hearing present, Denies headache(s) and Denies weakness Psychiatric: Psychiatric: Denies anxiety Endocrine: Endocrine: Denies change in body appearance Hematologic/Lymphatic: Hematologic/Lymphatic: Denies easy bleeding Allergic/Immunologic: Allergic/Immunologic: Denies urticaria PMFSH Past Medical History Medical History (Updated 04/03/21 @ 14:26 by Ector Ferrer MD) Acute alcoholic pancreatitis Acute pancreatitis Alcohol abuse Alcohol abuse Anxiety Attention deficit disorder BMI 23.0-23.9, adult Chronic diarrhea Depression DVT prophylaxis Gastro-esophageal reflux disease without esophagitis Hemorrhoids Hepatic steatosis History of abscessed tooth requiring surgical drainage Hyperlipidemia Hypertension Hypothyroidism Pancreatitis Requiring hospitalization in Feb 2020, May 2020 and Feb 2021 attributed to alcohol abuse. Psychiatric illness Schizoaffective disorder Seizures Last seizure in 2018. Spontaneous pneumothorax Thyroid cancer (~2000) Status post thyroidectomy. Tobacco dependence Surgical History Surgical History History of chest tube placement Spontaneous left-sided pneumothorax. History of cholecystectomy History of thyroidectomy (~2000) Hx of umbilical hernia repair Family History Family History Father Acute myocardial infarction Cerebrovascular accident Mother Family history of malignant neoplasm of thyroid Diabetes mellitus Social History Social History Social History: Lives at home with his mother, father, brother, and one of his two children (other child living with GF now). Tobacco, alcohol and drug use as mentioned ablove. Surrogate decision maker: Rekha Arriaga, . Code status: Full code. Smoking packs per day: 1.5 Smoking cigarettes per day: 30.0 Years smoked: 29 Smoking pack-years: 43.50 Smoking status: Current every day smoker Tobacco type: cigarettes Second hand tobacco smoke exposure: Yes Additional smoking assessment comments: smokes marijuana daily Alcohol intake: former Drinks per week: 42 Alcohol use details: drank a 6 pack per day quit 2 months ago Substance use: current Substance use type: marijuana Other substance usage details: Daily marijuana use. Last use: 05/29/20 Living arrangements: with family Additional living arrangements comments: Resides in a multi generation home in [place] to include his and 2 children. Additional occupation/education comments: Disabled due to underlying mental illness. Gender identity (if verbalized by the patient): Male Sexual Orientation (if Verbalized by the Patient): Straight or Heterosexual Spiritual care concerns: No Meds Home Medications and Allergies Home Medications Medication Instructions Recorded Confirmed Type Invega Michela
[2021-05-02 10:52] VITALS: BP 130/97; PULSE 91; RESP 26; O2SAT 96
[2021-05-02 11:02] VITALS: BP 152/109; PULSE 87; RESP 19; O2SAT 100
[2021-05-02 11:12] VITALS: BP 133/95; PULSE 100; RESP 24; O2SAT 100
== END 2021-05-02 11:15 | disposition home or self-care (01) ==
PROVIDERS: PCP Family Medicine; Visit Provider Internal Medicine Gastroenterology
PROC: 0DJD8ZZ Inspection of Lower Intestinal Tract, Via Natural or Artificial Opening Endoscopic (ICD-10-PCS; CPT 45378; principal; 2021-05-02 11:00)
DX: R19.7 Diarrhea, unspecified (principal); K92.1 Melena; K64.8 Other hemorrhoids; K86.0 Alcohol-induced chronic pancreatitis; F10.10 Alcohol abuse, uncomplicated; K21.9 Gastro-esophageal reflux disease without esophagitis; F41.8 Other specified anxiety disorders; I10 Essential (primary) hypertension; F25.9 Schizoaffective disorder, unspecified; F17.210 Nicotine dependence, cigarettes, uncomplicated; F12.90 Cannabis use, unspecified, uncomplicated; G40.909 Epilepsy, unspecified, not intractable, without status epilepticus; E89.0 Postprocedural hypothyroidism
CPT/HCPCS: 45380; 88305; J2704; J7120

== ENCOUNTER 2021-10-16 10:09 | Emergency (ER) | payer OTHER, SELFPAY ==
[2021-10-16 10:12] VITALS: BP 156/114; PULSE 114; RESP 20; TEMP 37.1; O2SAT 98
--- NOTE | 2021-10-16 10:36 | ED.ANXIETY ---
HPI - Anxiety General Chief Complaint: Recheck/Abnormal Lab/Rx Stated Complaint: blood pressure increased Time Seen by Provider: 10/16/21 10:21 Source: patient and family Mode of arrival: ambulatory Limitations: no limitations History of Present Illness HPI narrative: 36 y/o male presents to the ER today for adverse reaction to new medication. He sees psychiatry for his behavioral health problems. He has a lot of movement in his legs all the time. He has always been this way even before he started his psychiatric meds but his psychiatrist was worried that he was having dyskinesia symptoms from his meds so she started him on Ingrezza. Since he started the medicine, he is feeling very shaky and jittery and his blood pressure has been elevated. He has been very emotional as well. He denies having any chest pain. He had mild headache this morning but resolved with ibuprofen. No nausea or vomiting. No abdominal pain. No shortness of breath. Related Data Home Medications Medication Instructions Recorded Confirmed Jamari Saunders See Rx Instructions .ROUTE .COMPLEX 03/15/20 09/04/21 haloperidol 5 mg tablet 5 mg PO DAILY 04/03/21 09/04/21 valbenazine 60 mg capsule 60 mg PO DAILY 09/04/21 09/04/21 atomoxetine PO 10/16/21 10/16/21 Allergies Allergy/AdvReac Type Severity Reaction Status Date / Time No Known Allergies Allergy Verified 10/16/21 11:12 Review of Systems Constitutional: Constitutional: Reports no additional constitutional complaints, Denies chills, Denies fever(s) and Denies weakness Eyes: Eyes: Denies change in vision and Denies photophobia ENT: Denies dizziness Cardiovascular: Cardiovascular: Denies chest pain Respiratory: Respiratory: Denies chest congestion, Denies cough and Denies dyspnea Gastrointestinal: Gastrointestinal: Denies constipation, Denies diarrhea, Denies nausea and Denies vomiting Genitourinary: Genitourinary: Reports no additional male genitourinary complaints Musculoskeletal: Musculoskeletal: Denies myalgias and Denies arthralgias Integumentary/Breasts: Skin/Breast: Reports system reviewed and no additional complaints, except as docu Neurologic: Denies dizziness, Reports headache(s), Denies numbness and Denies weakness Psychiatric: Psychiatric: Reports anxiety, Denies homicidal ideation and Denies suicidal ideation Endocrine: Endocrine: Reports no additional endocrine complaints Hematologic/Lymphatic: Hematologic/Lymphatic: Reports no additional hematologic/lymphatic complaints Allergic/Immunologic: Allergic/Immunologic: Reports no additional allergic/immunologic complaints, Denies lip swelling, Denies throat swelling, Denies tongue swelling and Denies wheezing PMF Past Medical History Medical History Acute alcoholic pancreatitis Acute pancreatitis Alcohol abuse Alcohol abuse Anxiety Attention deficit disorder BMI 23.0-23.9, adult Body mass index [BMI] 22.0-22.9, adult Chronic diarrhea Chronic low back pain without sciatica Depression DVT prophylaxis Gastro-esophageal reflux disease without esophagitis Hemorrhoids Hepatic steatosis History of abscessed tooth requiring surgical drainage Hyperlipidemia total cholesterol 214, triglycerides elevated at 437, HDL 41 and LDL not calculated on 08/26/2021 Hypertension Hypothyroidism TSH suppressed at less than 0.01 with free T4 slightly elevated at 2.5 on 08/26/2021 Neuroleptic-induced tardive dyskinesia Pancreatitis Requiring hospitalization in Feb 2020, May 2020 and Feb 2021 attributed to alcohol abuse. Psychiatric illness Schizoaffective disorder Seizures Last seizure in 2018. Spontaneous pneumothorax Thyroid cancer (~2000) Status post thyroidectomy. Tobacco dependence Surgical History Surgical History History of chest tube placement Spontaneous left-sided pneumothorax. History of cholecystectomy History of
--- NOTE | 2021-10-16 10:37 | ECG_ITS ---
Measurements Intervals [place] Rate: 101 P: 62 NH: 162 QRS: 58 QRSD: 99 T: 43 QT: 319 QTc: 413 Interpretive Statements SINUS TACHYCARDIA NONSPECIFIC T-WAVE ABNORMALITY ABNORMAL ECG COMPARED TO ECG 03/03/2021 02:56:38 SINUS TACHYCARDIA NOW PRESENT T-WAVE ABNORMALITY NOW PRESENT Electronically Signed On 10-16-2021 16:00:10 CDT by Jesús Hurst M.D.
[2021-10-16] MEDS: cloNIDine HCL 0.1 MG TABLET PO (11:09)
[2021-10-16] MEDS: LORazepam INJ (*CRX) 2 MG/ML VIAL 1 MG IV PUSH ×2 (11:09→12:54)
[2021-10-16 11:26] LABS: Add Urine Microscopic? NO; Appearance Urine Clear (Clear); Bilirubin Urine Negative (Negative); Blood Urine Negative (Negative); Color Urine Colorless (Yellow); Glucose Urine UA Negative (Negative); Ketones Urine Negative (Negative); Leukocyte Esterase Ur Negative LEU/UL (Negative); Nitrate Urine Negative (Negative); Protein Urine Negative (Negative); Urobilinogen Urine Negative mg/dL (<2.0)
[2021-10-16 11:38] LABS: Specific Grav Ur 1.001 (1.001-1.035)
[2021-10-16 11:41] LABS: Amphetamine Screen Urine Negative (Negative); Barbiturate Screen Urine Negative (Negative); Benzodiazepines Screen Urine Negative (Negative); Cannabinoid Screen Urine Positive (Negative); Cocaine Screen Urine Negative (Negative); Methadone Screen Urine Negative (Negative); Opiate Screen Urine Negative (Negative); Phencyclidine Screen Urine Negative (Negative)
[2021-10-16 11:50] LABS: Basophils Absolute Auto 0.1 K/mm3 (0.0-0.1); Basophils Percent Auto 0.5 % (0.2-1.2); Eosinophils Percent Auto 0.2 % (0-4.4); Hematocrit 45.3 % (42.0-52.0); Hemoglobin 15.6 g/dL (14.0-18.0); Immature Granulocyte Absolute 0.05 K/mm3 (0.00-0.031); Immature Granulocyte Percent A 0.4 % (0-0.5); Lymphocytes Absolute Auto 2.18 K/mm3 (0.9-3.2); Lymphocytes Percent Auto 17.5 % (18.3-44.2); Mean Corpuscular HGB Conc 34.4 g/dl (32-36); Mean Corpuscular Hemoglobin 31.5 pg (26-34); Mean Corpuscular Volume 91.5 fl (80-100); Mean Platelet Volume 9.3 fl (7.4-10.4); Monocytes Absolute Auto 0.6 K/mm3 (0.1-0.6); Monocytes Percent Auto 4.5 % (2.6-8.5); Neutrophils Absolute Auto 9.6 K/mm3 (1.3-6.7); Neutrophils Percent Auto 76.9 % (45.5-73.1); Platelet Count Result 323 k/mm3 (150-375); Red Blood Count 4.95 M/mm3 (4.6-6.20); White Blood Count 12.5 K/mm3 (4.5-10.0)
[2021-10-16 11:59] LABS: Alanine Aminotransferase 32 U/L (4-50); Albumin Level 4.5 g/dL (3.5-5.1); Alkaline Phosphatase 147 U/L (38-126); Anion Gap 8 mmol/L (8-16); Aspartate Amino Transferase 41 U/L (17-59); Bilirubin,Total 0.4 mg/dL (0.2-1.3); Blood Urea Nitrogen 3 mg/dL (9-20); Calcium 9.3 mg/dL (8.4-10.2); Carbon Dioxide 24 mmol/L (22-30); Chloride 106 mmol/L (98-107); Estimated CRCL calculation 120 ml/min; Estimated Glomerular Filt Rate > 60; Glucose 108 mg/dL (65-110); Potassium 3.5 mmol/L (3.4-5.0); Sodium 138 mmol/L (137-145)
[2021-10-16 12:47] VITALS: BP 148/119; PULSE 104; RESP 18; O2SAT 98
[2021-10-16] MEDS: diphenhydrAMINE HCl INJ 50 MG/ML VIAL IV PUSH (12:54)
[2021-10-16] MEDS: LABETALOL HCL INJ 100 MG/20 ML VIAL 10 MG IV PUSH (12:55)
[2021-10-16 14:11] VITALS: BP 152/99; PULSE 76; RESP 16; O2SAT 98
== END 2021-10-16 14:11 | disposition home or self-care (01) ==
PROVIDERS: Emergency Provider Nurse Practitioner Family; PCP Family Medicine
DX: I10 Essential (primary) hypertension (principal); T50.995A Adverse effect of other drugs, medicaments and biological substances, initial encounter; F41.9 Anxiety disorder, unspecified; F98.8 Other specified behavioral and emotional disorders with onset usually occurring in childhood and adolescence; F32.A Depression, unspecified; G24.01 Drug induced subacute dyskinesia; F25.9 Schizoaffective disorder, unspecified; E78.5 Hyperlipidemia, unspecified; K21.9 Gastro-esophageal reflux disease without esophagitis; Z85.850 Personal history of malignant neoplasm of thyroid; E89.0 Postprocedural hypothyroidism; F17.210 Nicotine dependence, cigarettes, uncomplicated; R00.0 Tachycardia, unspecified; R94.31 Abnormal electrocardiogram [ECG] [EKG]
CPT/HCPCS: 36415; 80053; 80307; 81003; 85025; 93005; 96374; 96375; 96376; 99284; A9270; J1200; J2060

== ENCOUNTER 2021-10-17 14:13 | Emergency (ER) | payer OTHER, SELFPAY ==
--- NOTE | 2021-10-17 14:28 | PC.NURSE ---
Refuses to wait in [facility] without his female visitor. Advised of risks of LWBS including . Replied okay and left. In NAD.
== END 2021-10-17 14:41 | disposition left against medical advice (07) ==
LOC: ANHED 14:33
DX: I10 Essential (primary) hypertension (principal)
CPT/HCPCS: 99199

== ENCOUNTER 2021-10-23 09:57 | Emergency (ER) | payer OTHER, SELFPAY ==
[2021-10-23 10:05] VITALS: BP 173/117; PULSE 123; RESP 26; O2SAT 97
--- NOTE | 2021-10-23 10:10 | ECG_ITS ---
Measurements Intervals [place] Rate: 122 P: 51 MT: 140 QRS: 63 QRSD: 92 T: 21 QT: 321 QTc: 458 Interpretive Statements SINUS TACHYCARDIA NONSPECIFIC T-WAVE ABNORMALITY BASELINE ARTIFACT ABNORMAL ECG COMPARED TO ECG 10/16/2021 10:51:03 HEART RATE HAS INCREASED Electronically Signed On 10-23-2021 15:46:38 CDT by Zachery Lopez M.D.
--- NOTE | 2021-10-23 10:35 | ED.RECABL ---
HPI - Recheck/Abnormal Lab/Rx General Chief Complaint: Recheck/Abnormal Lab/Rx Stated Complaint: htn Time Seen by Provider: 10/23/21 10:21 History of Present Illness HPI narrative: Patient is a 36-year-old male complaining of elevated blood pressure read by mild headache for the past few days. Patient states that he was recently placed on a blood pressure medication, amlodipine, by his PCP 1 week ago but it is not working . Patient was recently diagnosed with hypertension by his PCP. Patient denies any speech or visual disturbance, focal weakness or numbness, unsteady gait, dizziness, chest pain, shortness of breath, abdominal pain, nausea, vomiting, or diaphoresis. Related Data Home Medications Medication Instructions Recorded Confirmed Jamari Saunders See Rx Instructions .ROUTE .COMPLEX 03/15/20 09/04/21 haloperidol 5 mg tablet 5 mg PO DAILY 04/03/21 09/04/21 valbenazine 60 mg capsule 60 mg PO DAILY 09/04/21 09/04/21 atomoxetine PO 10/16/21 10/16/21 meloxicam 15 mg tablet 15 mg PO DAILY 10/17/21 Allergies Allergy/AdvReac Type Severity Reaction Status Date / Time No Known Allergies Allergy Verified 10/16/21 11:12 Review of Systems Review of Systems: All systems reviewed & are unremarkable except as noted in HPI and below Constitutional: Constitutional: Denies body ache(s), Denies chills, Denies excessive sweating, Denies fatigue, Denies fever(s), Denies headache(s), Denies lethargy, Denies malaise, Denies weakness and Denies weight loss Eyes: Eyes: Denies blurry vision, Denies change in vision and Denies loss of vision ENT: Denies dizziness, Denies ear discharge, Denies headache(s), Denies lip swelling, Denies epistaxis, Denies nasal congestion, Denies neck pain, Denies throat swelling and Denies tongue swelling Cardiovascular: Cardiovascular: Denies chest pain, Denies chest pain at rest, Denies chest pain with activity, Denies diaphoresis, Denies rapid heart rate, Denies edema, Denies irregular heart rhythm, Denies lightheadedness, Denies palpitations, Denies dyspnea and Denies dyspnea on exertion Respiratory: Respiratory: Denies chest congestion, Denies cough, Denies hemoptysis, Denies dyspnea and Denies dyspnea on exertion Gastrointestinal: Gastrointestinal: Denies abdominal pain, Denies melena, Denies hematochezia, Denies diarrhea, Denies nausea, Denies vomiting and Denies hematemesis Musculoskeletal: Musculoskeletal: Denies abnormal gait, Denies deformity, Denies joint swelling, Denies limited range of motion, Denies neck pain and Denies numbness Neurologic: Denies Abnormal speech present, Denies abnormal gait, Denies confusion, Denies dizziness, Denies focal weakness, Denies loss of vision, Denies numbness, Denies Other visual disturbances, Denies Sensory deficit (Neuro) and Denies weakness Psychiatric: Psychiatric: Denies confusion, Denies depression, Denies auditory hallucinations, Denies homicidal ideation and Denies suicidal ideation Endocrine: Endocrine: Denies cold intolerance, Denies excessive sweating, Denies fatigue, Denies heat intolerance and Denies palpitations Hematologic/Lymphatic: Hematologic/Lymphatic: Denies easy bleeding and Denies easy bruising Allergic/Immunologic: Allergic/Immunologic: Denies lip swelling, Denies throat swelling and Denies tongue swelling PMF Past Medical History Medical History Acute alcoholic pancreatitis Acute pancreatitis Alcohol abuse Alcohol abuse Anxiety Attention deficit disorder BMI 23.0-23.9, adult Body mass index [BMI] 22.0-22.9, adult Chronic diarrhea Chronic low back pain without sciatica Depression DVT prophylaxis Essential hypertension Gastro-esophageal reflux disease without esophagitis Hemorrhoids Hepatic steatosis History of abscessed tooth requiring surgical drainage Hyperlipidemia total cholesterol 214, triglycerides elevated at 437, HDL 41 and LDL not calculated on 08/26/2021 Hypertension H
[2021-10-23 10:47] LABS: Basophils Absolute Auto 0.1 K/mm3 (0.0-0.1); Basophils Percent Auto 0.6 % (0.2-1.2); Eosinophils Absolute Auto 0.1 K/mm3 (0-0.3); Eosinophils Percent Auto 0.4 % (0-4.4); Hematocrit 46.4 % (42.0-52.0); Immature Granulocyte Absolute 0.06 K/mm3 (0.00-0.031); Immature Granulocyte Percent A 0.4 % (0-0.5); Lymphocytes Absolute Auto 1.98 K/mm3 (0.9-3.2); Lymphocytes Percent Auto 14.1 % (18.3-44.2); Mean Corpuscular HGB Conc 34.5 g/dl (32-36); Mean Corpuscular Hemoglobin 31.5 pg (26-34); Mean Corpuscular Volume 91.3 fl (80-100); Mean Platelet Volume 9.2 fl (7.4-10.4); Monocytes Absolute Auto 0.6 K/mm3 (0.1-0.6); Monocytes Percent Auto 4.4 % (2.6-8.5); Neutrophils Absolute Auto 11.2 K/mm3 (1.3-6.7); Neutrophils Percent Auto 80.1 % (45.5-73.1); Platelet Count Result 399 k/mm3 (150-375); Red Blood Count 5.08 M/mm3 (4.6-6.20); Red Cell Distribution Width 13.1 % (11.5-14.5)
--- NOTE | 2021-10-23 10:50 | PC.NURSE ---
Patient off unit to Radiology.
[2021-10-23 10:57] LABS: INR 0.9; Prothrombin Time 11.9 Seconds (11.1-14.7)
[2021-10-23 10:58] LABS: Alanine Aminotransferase 32 U/L (4-50); Albumin Level 4.7 g/dL (3.5-5.1); Alkaline Phosphatase 163 U/L (38-126); Anion Gap 8 mmol/L (8-16); Aspartate Amino Transferase 38 U/L (17-59); Bilirubin,Total 0.3 mg/dL (0.2-1.3); Blood Urea Nitrogen 6 mg/dL (9-20); Calcium 9.2 mg/dL (8.4-10.2); Carbon Dioxide 23 mmol/L (22-30); Chloride 106 mmol/L (98-107); Estimated CRCL calculation 139 ml/min; Estimated Glomerular Filt Rate > 60; Glucose 119 mg/dL (65-110); Lipase 35 U/L (23-300); Potassium 3.7 mmol/L (3.4-5.0); Sodium 137 mmol/L (137-145)
[2021-10-23 11:02] VITALS: BP 161/113; PULSE 115; RESP 25; O2SAT 98
[2021-10-23] MEDS: LABETALOL HCL INJ 100 MG/20 ML VIAL 20 MG IV PUSH (11:03)
[2021-10-23 11:09] LABS: Troponin I < 0.012 ng/mL (0.000-0.034)
[2021-10-23 11:22] VITALS: BP 149/107; PULSE 86; RESP 18; O2SAT 97
[2021-10-23] MEDS: LORazepam (*CRX) 1 MG TABLET PO (11:36)
[2021-10-23 12:18] VITALS: BP 147/105; PULSE 88; RESP 18; O2SAT 98
--- NOTE | 2021-10-23 12:20 | PC.NURSE ---
Pt c/o continued anxiety, ERP made aware and states patient will not receive any more medications . This fiction and nonfiction prose writer asked ERP to re-evaluate patient.
--- NOTE | 2021-10-23 12:39 | PC.NURSE ---
Pt family at desk to inquire about plan of care. LEE ANN michaud made aware. Pt continues to c/o anxiety.
[2021-10-23 12:40] VITALS: BP 138/108; PULSE 90; RESP 16; O2SAT 98
[2021-10-23 13:21] VITALS: BP 145/109; PULSE 99; RESP 20; O2SAT 98
== END 2021-10-23 13:23 | disposition home or self-care (01) ==
PROVIDERS: Emergency Provider Emergency Medicine; PCP Family Medicine
DX: I16.0 Hypertensive urgency (principal); F41.9 Anxiety disorder, unspecified; R19.7 Diarrhea, unspecified; M54.9 Dorsalgia, unspecified; G89.29 Other chronic pain; E89.0 Postprocedural hypothyroidism; Z85.850 Personal history of malignant neoplasm of thyroid; E78.5 Hyperlipidemia, unspecified; G24.01 Drug induced subacute dyskinesia; F17.210 Nicotine dependence, cigarettes, uncomplicated; F98.8 Other specified behavioral and emotional disorders with onset usually occurring in childhood and adolescence; F32.A Depression, unspecified; R00.0 Tachycardia, unspecified; R94.31 Abnormal electrocardiogram [ECG] [EKG]
CPT/HCPCS: 36415; 80053; 83690; 84484; 85025; 85610; 85730; 93005; 96374; 99284; A9270

== ENCOUNTER → 2022-03-25 10:50 | Outpatient (CLI) | payer OTHER, SELFPAY ==
--- NOTE | ~2022-03-25 | XR_ITS ---
XR chest 2V DATE: 03/25/2022 11:00 INDICATION: Productive cough. Smoker. Acute bronchitis. TECHNIQUE: 2 views COMPARISON: 03/13/2021 PA and lateral chest FINDINGS: Bilateral hyperinflation suggesting COPD. No pulmonary infiltrate or consolidation, pleural effusion or pulmonary vascular congestion or pneumothorax is detected. Normal heart size. No hilar or mediastinal enlargement. IMPRESSION: Bilateral hyperinflation suggesting COPD No active cardiopulmonary disease Reviewed, dictated and finalized at location B.
== END ==
PROVIDERS: PCP Family Medicine; Visit Provider Family Medicine
DX: J20.9 Acute bronchitis, unspecified (principal); R91.8 Other nonspecific abnormal finding of lung field
CPT/HCPCS: 71046

== ENCOUNTER 2022-12-21 14:15 | Emergency (ER) | payer OTHER, SELFPAY ==
[2022-12-21] VITALS (22 sets, daily range): BP systolic 116–147; BP diastolic 80–104; PULSE 58–108; RESP 9–19; TEMP 36.4; O2SAT 93–99
--- NOTE | 2022-12-21 14:21 | ECG_ITS ---
Measurements Intervals [place] Rate: 95 P: 73 SC: 157 QRS: 83 QRSD: 89 T: 46 QT: 333 QTc: 420 Interpretive Statements SINUS RHYTHM NONSPECIFIC T-WAVE ABNORMALITY- INFERIOR LEADS BORDERLINE ECG COMPARED TO ECG 10/23/2021 10:11:58 SINUS RHYTHM NOW PRESENT Electronically Signed On 12-21-2022 21:15:24 CDT by Mathieu Schmidt D.O.
[2022-12-21 14:35] LABS: Basophils Absolute Auto 0.1 K/mm3 (0.0-0.1); Basophils Percent Auto 0.8 % (0.2-1.2); Eosinophils Absolute Auto 0.1 K/mm3 (0-0.3); Eosinophils Percent Auto 1.7 % (0-4.4); Hematocrit 45.8 % (42.0-52.0); Hemoglobin 16.2 g/dL (14.0-18.0); Immature Granulocyte Absolute 0.01 K/mm3 (0.00-0.031); Immature Granulocyte Percent A 0.1 % (0-0.5); Lymphocytes Absolute Auto 2.82 K/mm3 (0.9-3.2); Lymphocytes Percent Auto 35.9 % (18.3-44.2); Mean Corpuscular HGB Conc 35.4 g/dl (32-36); Mean Corpuscular Hemoglobin 32.4 pg (26-34); Mean Corpuscular Volume 91.6 fl (80-100); Mean Platelet Volume 8.8 fl (7.4-10.4); Monocytes Absolute Auto 0.6 K/mm3 (0.1-0.6); Monocytes Percent Auto 7.8 % (2.6-8.5); Neutrophils Absolute Auto 4.2 K/mm3 (1.3-6.7); Neutrophils Percent Auto 53.7 % (45.5-73.1); Platelet Count Result 340 k/mm3 (150-375); Red Cell Distribution Width 12.7 % (11.5-14.5); White Blood Count 7.9 K/mm3 (4.5-10.0)
[2022-12-21] MEDS: SODIUM CHLORIDE 0.9% IV 1,000 ML 999 ML IV CONT (14:50)
[2022-12-21] MEDS: MORPHINE SULFATE (*CRX) 4 MG/ML INJ IV PUSH (14:51)
[2022-12-21] MEDS: ONDANSETRON INJ 4 MG/2 ML VIAL IV PUSH (14:51)
[2022-12-21 14:57] LABS: Alanine Aminotransferase 49 U/L (6-50); Albumin Level 4.4 g/dL (3.5-5.1); Alkaline Phosphatase 133 U/L (38-126); Anion Gap 4 mmol/L (8-16); Aspartate Amino Transferase 41 U/L (17-59); Bilirubin,Total 0.6 mg/dL (0.2-1.3); Blood Urea Nitrogen 7 mg/dL (9-20); Calcium 9.3 mg/dL (8.4-10.2); Carbon Dioxide 33 mmol/L (22-30); Chloride 97 mmol/L (98-107); Estimated CRCL calculation 105 ml/min; Estimated Glomerular Filt Rate > 60; Glucose 118 mg/dL (65-110); Lipase 434 U/L (23-300); Potassium 3.7 mmol/L (3.4-5.0); Sodium 134 mmol/L (137-145)
[2022-12-21 15:36] LABS: Appearance Urine Clear (Clear); Bilirubin Urine Negative (Negative); Blood Urine Negative (Negative); Color Urine Yellow (Yellow); Glucose Urine UA Negative (Negative); Ketones Urine Negative (Negative); Leukocyte Esterase Ur Negative LEU/UL (Negative); Nitrate Urine Negative (Negative); Protein Urine Negative (Negative); Specific Grav Ur 1.005 (1.001-1.035); Urobilinogen Urine 0.2 mg/dL (<2.0); pH Urine 7.5 (5.0-9.0)
[2022-12-21 15:48] LABS: Add Urine Microscopic? NO
[2022-12-21] MEDS: BELLADONNA ALK/PHENOB ELIX 10 ML, MAG HYDROX/ALUMINUM HYD/SIMETH 30 ML, LIDOCAINE HCL 2... PO (15:55)
--- NOTE | 2022-12-21 16:50 | ED.ABDPAIN ---
HPI - Abdominal Pain General Chief Complaint: Abdominal Pain Stated Complaint: abdominal pain-hx of pancreatitis Time Seen by Provider: 12/21/22 14:30 History of Present Illness HPI narrative: Patient is a 37-year-old male who presents ER with epigastric pain. Feels like he may be related to pancreatitis. He has been drinking alcohol over the last couple of days. He had 3 beers this morning and 6 yesterday. Pain does radiate to his back. No fevers chills or sweats. Emesis yesterday but not today. No blood in emesis or blood in stool. No alleviating factors. Related Data Home Medications Medication Instructions Recorded Confirmed meloxicam 15 mg tablet 15 mg PO DAILY 10/17/21 12/07/22 haloperidol 5 mg tablet 5 mg PO DAILY PRN agitation 03/25/22 12/07/22 paliperidone palm (6-month) 1,092 1,092 mg IM . q.6 months 06/02/22 12/07/22 mg/3.5 mL intramuscular syringe Allergies Allergy/AdvReac Type Severity Reaction Status Date / Time No Known Allergies Allergy Verified 12/21/22 14:15 Review of Systems Review of Systems: All systems reviewed & are unremarkable except as noted in HPI and below Constitutional: Constitutional: Denies chills, Denies fatigue and Denies fever(s) ENT: Denies nasal congestion and Denies sore throat Cardiovascular: Cardiovascular: Denies chest pain, Denies rapid heart rate and Denies radiating jaw, neck or arm pain Respiratory: Respiratory: Denies cough and Denies dyspnea Gastrointestinal: Gastrointestinal: Reports abdominal pain, Denies constipation, Denies heartburn, Denies diarrhea, Reports nausea and Reports vomiting Genitourinary: Genitourinary: Denies dysuria and Denies urinary frequency Musculoskeletal: Musculoskeletal: Denies back pain and Denies arthralgias [facility] Past Medical History Medical History (Updated 12/21/22 @ 16:51 by Mina Pereyra MD) Acute alcoholic pancreatitis Acute bronchitis Acute pancreatitis Alcohol abuse Alcohol abuse Anxiety Attention deficit disorder BMI 23.0-23.9, adult Body mass index [BMI] 22.0-22.9, adult Chronic diarrhea after cholecystectomy Chronic low back pain without sciatica COPD (chronic obstructive pulmonary disease) (~03/25/22) 29 year history of smoking with chest x-ray 03/25/2022 with hyperinflation suggestive of COPD. Depression DVT prophylaxis Essential hypertension Gastro-esophageal reflux disease without esophagitis Hemorrhoids Hepatic steatosis History of abscessed tooth requiring surgical drainage Hyperlipidemia total cholesterol 214, triglycerides elevated at 437, HDL 41 and LDL not calculated on 08/26/2021. Hypothyroidism TSH suppressed at less than 0.01 with free T4 slightly elevated at 2.5 on 08/26/2021 Male erectile dysfunction, unspecified (~2020) Neuroleptic-induced tardive dyskinesia Pain in left foot Pancreatitis Requiring hospitalization in Feb 2020, May 2020 and Feb 2021 attributed to alcohol abuse. Plantar wart of left foot (~2021) Psychiatric illness Schizoaffective disorder Seizures Last seizure in 2018. Spontaneous pneumothorax Thyroid cancer (~2000) Status post thyroidectomy. Tobacco dependence 1 pack per day Surgical History Surgical History History of chest tube placement Spontaneous left-sided pneumothorax. History of cholecystectomy History of thyroidectomy (~2000) Hx of umbilical hernia repair Family History Family History Father Acute myocardial infarction Cerebrovascular accident Mother Family history of malignant neoplasm of thyroid Diabetes mellitus Social History Social History (Updated 09/01/22 @ 10:24 by Shanelle Amato MA) Social History: Lives at home with his mother, father, brother, and one of his two children (other child living with GF now). Tobacco, alcohol and drug use as mentioned ablove. Surrogate decision maker: Rekha Arriaga
== END 2022-12-21 16:56 | disposition home or self-care (01) ==
PROVIDERS: Emergency Provider Emergency Medicine; PCP Family Medicine
DX: K21.9 Gastro-esophageal reflux disease without esophagitis (principal); J44.9 Chronic obstructive pulmonary disease, unspecified; E78.5 Hyperlipidemia, unspecified; E89.0 Postprocedural hypothyroidism; F41.9 Anxiety disorder, unspecified; F98.8 Other specified behavioral and emotional disorders with onset usually occurring in childhood and adolescence; F25.9 Schizoaffective disorder, unspecified; F32.A Depression, unspecified; F17.210 Nicotine dependence, cigarettes, uncomplicated; Z85.850 Personal history of malignant neoplasm of thyroid; Z90.49 Acquired absence of other specified parts of digestive tract; R94.31 Abnormal electrocardiogram [ECG] [EKG]
CPT/HCPCS: 36415; 80053; 81003; 83690; 85025; 93005; 96361; 96374; 96375; 99284; A9270; J2270; J2405; J7030

== ENCOUNTER 2023-03-22 03:46 | Inpatient (IN) | payer OTHER, SELFPAY ==
[2023-03-22] VITALS (7 sets, daily range): BP systolic 108–132; BP diastolic 70–90; PULSE 66–98; RESP 15–22; TEMP 36.4–37; O2SAT 92–100; BMI 21.7
--- NOTE | ~2023-03-22 | CT_ITS ---
CT of the Abdomen and Pelvis: Indication: Abdominal pain, history of pancreatitis Technique: 2.5 mm axial scans were obtained through the abdomen and pelvis following intravenous adm inistration of 100 cc of Omnipaque 350. Dose reduction technique was used on this scan by utilizing a utomated exposure control and iterative reconstruction technique. The dose-length product (DLP) was 3 55.40 mGy-cm. COMPARISON: 03/03/2021 Findings: Scans through the lung bases are unremarkable. The liver, spleen, adrenals and kidneys are within normal limits. Cholecystectomy clips are present. There is peripancreatic inflammatory change and fluid, consistent with acute pancreatitis. No evidenc e of aortic aneurysm. No lymphadenopathy. No bowel obstruction or bowel wall thickening. There is no evidence to suggest acute appendicitis. Images through the pelvis were performed. Urinary bladder unremarkable. Prostate gland and seminal ve sicles are unremarkable. No pelvic ascites. Impression: Acute pancreatitis, as detailed above. Reviewed, dictated and finalized at location . Impression: Acute pancreatitis, as detailed above.
--- NOTE | 2023-03-22 04:03 | ED.GENADULT ---
HPI - General Adult General Chief complaint: Abdominal Pain Stated complaint: pancreatitis Time Seen by Provider: 03/22/23 03:55 History of Present Illness HPI narrative: Patient 37-year-old gentleman who presents the emergency department with chief complaint of abdominal pain. The patient reports that he started having pain this morning reports has had nausea and vomiting patient reports he has prior history of pancreatitis and usually occurs whenever he drinks alcohol patient reports that he has been using marijuana and decided to stop using marijuana and decided to substitute alcohol for marijuana the patient states this triggered his episode of pancreatitis this time. Patient reports that a prior cholecystectomy Related Data Home Medications Medication Instructions Recorded Confirmed haloperidol 5 mg tablet 5 mg PO DAILY PRN agitation 03/25/22 03/11/23 paliperidone palm (6 month) 1,092 1,092 mg IM . q.6 months 06/02/22 03/11/23 mg/3.5 mL intramuscular syringe Allergies Allergy/AdvReac Type Severity Reaction Status Date / Time No Known Allergies Allergy Verified 03/22/23 03:51 Review of Systems Review of Systems: A 10 system review of systems was completed on the patient and is negative except for what is stated in the HPI. Nursing and ancillary documentation was reviewed. [facility] Past Medical History Medical History Acute alcoholic pancreatitis Acute bronchitis Acute pancreatitis Alcohol abuse Alcohol abuse Anxiety Attention deficit disorder BMI 23.0-23.9, adult Body mass index [BMI] 22.0-22.9, adult Chronic diarrhea after cholecystectomy Chronic low back pain without sciatica COPD (chronic obstructive pulmonary disease) (~03/25/22) 29 year history of smoking with chest x-ray 03/25/2022 with hyperinflation suggestive of COPD. Depression DVT prophylaxis Essential hypertension Gastro-esophageal reflux disease without esophagitis Hemorrhoids Hepatic steatosis History of abscessed tooth requiring surgical drainage Hyperlipidemia total cholesterol 214, triglycerides elevated at 437, HDL 41 and LDL not calculated on 08/26/2021. Total cholesterol 212, triglycerides 329, HDL 63, LDL 105 with ratio 3.4 on 01/28/2023. Hypothyroidism TSH suppressed at less than 0.01 with free T4 slightly elevated at 2.5 on 08/26/2021. TSH 5.17, free T4 at 1.0, T3 total low at 63 on 01/28/2023. Male erectile dysfunction, unspecified (~2020) Neuroleptic-induced tardive dyskinesia Pain in left foot Pancreatitis Requiring hospitalization in Feb 2020, May 2020 and Feb 2021 attributed to alcohol abuse. Plantar wart of left foot (~2021) Psychiatric illness Schizoaffective disorder Seizures Last seizure in 2018. Spontaneous pneumothorax Thyroid cancer (~2000) Status post thyroidectomy. Tobacco dependence 1 pack per day Vitamin B12 deficiency (01/28/23) level low at 347 with goal greater than 400 with folic acid 7.8 and hemoglobin 14.5 on 01/28/2023. Surgical History Surgical History History of chest tube placement Spontaneous left-sided pneumothorax. History of cholecystectomy History of thyroidectomy (~2000) Hx of umbilical hernia repair Family History Family History Father Acute myocardial infarction Cerebrovascular accident Mother Family history of malignant neoplasm of thyroid Diabetes mellitus Social History Social History Social History: Lives at home with his mother, father, brother, and one of his two children (other child living with GF now). Tobacco, alcohol and drug use as mentioned ablove. Surrogate decision maker: Rekha Arriaga, . Code status: Full code. Smoking packs per day: 1 Smoking cigarettes per day: 20.0 Years smoked: 23
[2023-03-22 04:05] LABS: Basophils Absolute Auto 0.1 K/mm3 (0.0-0.1); Basophils Percent Auto 0.6 % (0.2-1.2); Eosinophils Absolute Auto 0.1 K/mm3 (0-0.3); Eosinophils Percent Auto 0.6 % (0-4.4); Hematocrit 42.4 % (42.0-52.0); Hemoglobin 15.3 g/dL (14.0-18.0); Immature Granulocyte Absolute 0.08 K/mm3 (0.00-0.031); Immature Granulocyte Percent A 0.5 % (0-0.5); Lymphocytes Absolute Auto 2.07 K/mm3 (0.9-3.2); Lymphocytes Percent Auto 13.1 % (18.3-44.2); Mean Corpuscular HGB Conc 36.1 g/dl (32-36); Mean Corpuscular Volume 91.6 fl (80-100); Mean Platelet Volume 8.8 fl (7.4-10.4); Monocytes Absolute Auto 0.9 K/mm3 (0.1-0.6); Monocytes Percent Auto 5.6 % (2.6-8.5); Neutrophils Absolute Auto 12.6 K/mm3 (1.3-6.7); Neutrophils Percent Auto 79.6 % (45.5-73.1); Platelet Count Result 399 k/mm3 (150-375); Red Blood Count 4.63 M/mm3 (4.6-6.20); Red Cell Distribution Width 12.7 % (11.5-14.5); White Blood Count 15.8 K/mm3 (4.5-10.0)
[2023-03-22] MEDS: MORPHINE SULFATE (*CRX) 4 MG/ML INJ IV PUSH ×2 (04:11→09:07)
[2023-03-22] MEDS: ONDANSETRON INJ 4 MG/2 ML VIAL IV PUSH (04:11)
[2023-03-22] MEDS: SODIUM CHLORIDE 0.9% IV 1,000 ML 999 ML IV CONT (04:11)
[2023-03-22 04:15] LABS: Alanine Aminotransferase 28 U/L (6-50); Albumin Level 4.6 g/dL (3.5-5.1); Alkaline Phosphatase 145 U/L (38-126); Anion Gap 10 mmol/L (8-16); Aspartate Amino Transferase 33 U/L (17-59); Blood Urea Nitrogen 7 mg/dL (9-20); Calcium 9.8 mg/dL (8.4-10.2); Carbon Dioxide 17 mmol/L (22-30); Chloride 99 mmol/L (98-107); Estimated CRCL calculation 119 ml/min; Estimated Glomerular Filt Rate > 60; Glucose 197 mg/dL (65-110); Lipase 1970 U/L (23-300); Potassium 3.9 mmol/L (3.4-5.0); Sodium 126 mmol/L (137-145)
--- NOTE | 2023-03-22 05:13 | PC.NURSE ---
patient denies ability to urinate and refuses straight catheterization.
[2023-03-22] MEDS: MORPHINE SULFATE (*CRX) 2 MG/ML INJ 4 MG IV PUSH (06:53)
[2023-03-22 07:01] LABS: Appearance Urine Clear (Clear); Bilirubin Urine Negative (Negative); Blood Urine Negative (Negative); Color Urine Yellow (Yellow); Glucose Urine UA Negative (Negative); Ketones Urine Negative (Negative); Leukocyte Esterase Ur Negative LEU/UL (Negative); Nitrate Urine Negative (Negative); Protein Urine Negative (Negative); Urobilinogen Urine 0.2 mg/dL (<2.0); pH Urine 5.5 (5.0-9.0)
[2023-03-22 07:03] LABS: Specific Grav Ur 1.058 (1.001-1.035)
[2023-03-22 07:04] LABS: Add Urine Microscopic? NO
[2023-03-22 07:35] LABS: Ethanol < 10 mg/dL (<10)
[2023-03-22] MEDS: PANTOPRAZOLE SODIUM IV 40 MG VIAL IV PUSH (08:08)
[2023-03-22] MEDS: SODIUM CHLORIDE 0.9% IV 1,000 ML 125 ML IV CONT ×2 (08:08→15:17)
[2023-03-22] MEDS: THIAMINE HCL 200 MG/2 ML VIAL 100 MG IV PUSH (09:07)
[2023-03-22] MEDS: HALOPERIDOL 5 MG TABLET PO ×3 (09:08→21:31)
[2023-03-22] MEDS: IRBESARTAN 150 MG TABLET PO (09:08)
[2023-03-22] MEDS: FOLIC ACID 1 MG/0.2 ML INJ IV PUSH (09:08)
[2023-03-22] MEDS: amLODIPine BESYLATE 5 MG TABLET 10 MG PO (09:08)
[2023-03-22] MEDS: ENOXAPARIN 40 MG/0.4 ML SYRINGE SUB-Q (09:08)
[2023-03-22] MEDS: FAMOTIDINE 20 MG TABLET PO (09:08)
--- NOTE | 2023-03-22 10:00 | PM.IMHP ---
H&P: HPI History of Present Illness Date/Time: 03/22/23 1000 Chief Complaint: acute on chronic pancreatitis, ETOH abuse, Marijuana abuse Narrative: Patient is a 37-year-old male with a past medical history of chronic pancreatitis, alcohol abuse, cholecystectomy, tobacco abuse who presented to the ED with complaints of abdominal pain with nausea vomiting. Patient stated that he had recently decided to switch his marijuana use for alcohol use. He does typically get the signs and symptoms when he does drink. He stated that the marijuana got too expensive. He stated that yesterday afternoon he started to have abdominal / chest pain epigastric pain. He stated that he vomited once many broken to a a significant sweats. He denies any shortness a breath, diarrhea, constipation, fevers, chills, lightheadedness, dizziness, weakness, fatigue, headaches or swelling. He is complaining current pain which he states is 10/10. His current pain is epigastric and does not radiate anywhere. He can not tell me how much she had to drink he stated that it was just a whole lot. He is tolerating clear liquids at this time. In the ED it was noted his lipase was elevated in 1969. White count is slightly elevated 15.[address] of the abdomen pelvis did show acute pancreatitis. Patient is being admitted to the hospitalist service under observation and requiring less than 2 midnight. Review of Systems Review of Systems: All systems reviewed & are unremarkable except as noted in HPI and below PMFSH Past Medical History Medical History Acute alcoholic pancreatitis Acute bronchitis Acute pancreatitis (~03/22/23) Alcohol abuse Anxiety Attention deficit disorder BMI 23.0-23.9, adult Body mass index [BMI] 22.0-22.9, adult Chronic diarrhea after cholecystectomy Chronic low back pain without sciatica COPD (chronic obstructive pulmonary disease) (~03/25/22) 29 year history of smoking with chest x-ray 03/25/2022 with hyperinflation suggestive of COPD. Depression Essential hypertension Gastro-esophageal reflux disease without esophagitis Hemorrhoids Hepatic steatosis History of abscessed tooth requiring surgical drainage Hyperlipidemia total cholesterol 214, triglycerides elevated at 437, HDL 41 and LDL not calculated on 08/26/2021. Total cholesterol 212, triglycerides 329, HDL 63, LDL 105 with ratio 3.4 on 01/28/2023. Hypothyroidism TSH suppressed at less than 0.01 with free T4 slightly elevated at 2.5 on 08/26/2021. TSH 5.17, free T4 at 1.0, T3 total low at 63 on 01/28/2023. Male erectile dysfunction, unspecified (~2020) Neuroleptic-induced tardive dyskinesia Pain in left foot Pancreatitis Requiring hospitalization in Feb 2020, May 2020 and Feb 2021 attributed to alcohol abuse. Plantar wart of left foot (~2021) Psychiatric illness Recurrent acute pancreatitis Schizoaffective disorder Seizures Last seizure in 2018. Spontaneous pneumothorax Thyroid cancer (~2000) Status post thyroidectomy. Tobacco dependence 1 pack per day Vitamin B12 deficiency (01/28/23) level low at 347 with goal greater than 400 with folic acid 7.8 and hemoglobin 14.5 on 01/28/2023. Surgical History Surgical History History of chest tube placement Spontaneous left-sided pneumothorax. History of cholecystectomy History of thyroidectomy (~2000) Hx of umbilical hernia repair Family History Family History Father Acute myocardial infarction Cerebrovascular accident Mother Family history of malignant neoplasm of thyroid Diabetes mellitus Social History Social History Social History: Lives at home with his mother, father, brother, and one of his two children (other child living with GF now). Tobacco, alcohol and drug use as mentioned ablo
[2023-03-22] MEDS: HYDROcodone/acetaminophen (*CRX) 5-325 MG TABLET 1 TAB PO ×2 (10:24→21:31)
[2023-03-22] MEDS: KETOROLAC 30 MG/ML VIAL (*BKC) IV PUSH (12:11)
[2023-03-22] MEDS: HYDROmorphone HCL INJ (*CRX) 1 MG/ML SYR 0.5 MG IV PUSH (15:15)
[2023-03-23] MEDS: HYDROmorphone HCL INJ (*CRX) 1 MG/ML SYR 0.5 MG IV PUSH ×5 (01:28→20:53)
[2023-03-23] MEDS: HYDROcodone/acetaminophen (*CRX) 5-325 MG TABLET 1 TAB PO (03:51)
[2023-03-23] MEDS: SODIUM CHLORIDE 0.9% IV 1,000 ML 125 ML IV CONT ×3 (03:52→23:48)
[2023-03-23 04:52] VITALS: BP 135/88; PULSE 84; RESP 16; TEMP 37.1; O2SAT 98
[2023-03-23] MEDS: LEVOTHYROXINE SODIUM 125 MCG TABLET PO (05:12)
[2023-03-23 06:26] LABS: Basophils Percent Auto 0.2 % (0.2-1.2); Eosinophils Absolute Auto 0.1 K/mm3 (0-0.3); Eosinophils Percent Auto 0.8 % (0-4.4); Hematocrit 42.6 % (42.0-52.0); Hemoglobin 14.4 g/dL (14.0-18.0); Immature Granulocyte Absolute 0.05 K/mm3 (0.00-0.031); Immature Granulocyte Percent A 0.4 % (0-0.5); Lymphocytes Absolute Auto 1.16 K/mm3 (0.9-3.2); Lymphocytes Percent Auto 8.8 % (18.3-44.2); Mean Corpuscular HGB Conc 33.8 g/dl (32-36); Mean Corpuscular Hemoglobin 32.7 pg (26-34); Mean Corpuscular Volume 96.6 fl (80-100); Mean Platelet Volume 9.6 fl (7.4-10.4); Monocytes Absolute Auto 0.8 K/mm3 (0.1-0.6); Monocytes Percent Auto 6.3 % (2.6-8.5); Neutrophils Percent Auto 83.5 % (45.5-73.1); Platelet Count Result 368 k/mm3 (150-375); Red Blood Count 4.41 M/mm3 (4.6-6.20); Red Cell Distribution Width 12.8 % (11.5-14.5); White Blood Count 13.2 K/mm3 (4.5-10.0)
[2023-03-23 06:37] LABS: Alanine Aminotransferase 37 U/L (6-50); Albumin Level 4.3 g/dL (3.5-5.1); Alkaline Phosphatase 161 U/L (38-126); Anion Gap 5 mmol/L (8-16); Aspartate Amino Transferase 50 U/L (17-59); Bilirubin,Total 0.8 mg/dL (0.2-1.3); Blood Urea Nitrogen 3 mg/dL (9-20); Calcium 8.8 mg/dL (8.4-10.2); Carbon Dioxide 26 mmol/L (22-30); Chloride 103 mmol/L (98-107); Estimated CRCL calculation 130 ml/min; Estimated Glomerular Filt Rate > 60; Glucose 121 mg/dL (65-110); Potassium 4.1 mmol/L (3.4-5.0); Sodium 134 mmol/L (137-145)
[2023-03-23 06:54] LABS: Lipase 3411 U/L (23-300)
[2023-03-23] MEDS: ENOXAPARIN 40 MG/0.4 ML SYRINGE SUB-Q (08:21)
[2023-03-23] MEDS: HALOPERIDOL 5 MG TABLET PO ×3 (08:21→17:29)
[2023-03-23] MEDS: THIAMINE HCL 200 MG/2 ML VIAL 100 MG IV PUSH (08:21)
[2023-03-23] MEDS: IRBESARTAN 150 MG TABLET PO (08:21)
[2023-03-23] MEDS: PANTOPRAZOLE SODIUM IV 40 MG VIAL IV PUSH (08:21)
[2023-03-23] MEDS: amLODIPine BESYLATE 5 MG TABLET 10 MG PO (08:21)
[2023-03-23] MEDS: NICOTINE (*PBKC) 21 MG PATCH 1 PATCH TRANSDERM (08:22)
--- NOTE | 2023-03-23 09:04 | PM.CNGS ---
Assessment and Plan Assessment and plan (1) Internal hemorrhoids: Code(s): K64.8 - Other hemorrhoids Status: Acute Assessment and Plan: This is the reason we were consulted. He does not have rectal prolapse but he does have grade IV internal hemorrhoids with a significant amount of inflammation. He has some bleeding at times that fluctuates depending on his bowel movements. Hgb normal. This is a chronic issue related to his chronic diarrhea. Will start Anusol twice daily and sitz baths. Discussed that he would benefit from increasing fiber in his diet and/or fiber supplement after his pancreatitis resolved. He will likely need hemorrhoidectomy eventually as an outpatient. Will continue to follow. (2) Acute on chronic pancreatitis: Code(s): K85.90 - Acute pancreatitis without necrosis or infection, unspecified; K86.1 - Other chronic pancreatitis Status: Acute Assessment and Plan: Acute on chronic pancreatitis. No fluid collection or necrosis noted on CT. Continue with medical management. (3) Alcohol abuse: Code(s): F10.10 - Alcohol abuse, uncomplicated Status: Acute (4) COPD (chronic obstructive pulmonary disease): Onset Date: ~03/25/22 Qualifiers: COPD type: emphysema Emphysema type: unspecified Qualified Code(s): J43.9 - Emphysema, unspecified Code(s): J44.9 - Chronic obstructive pulmonary disease, unspecified Status: Acute (5) Tobacco dependence: Code(s): F17.200 - Nicotine dependence, unspecified, uncomplicated Status: Acute Plan I have discussed the patient's case and plan of care with Dr. Fisher. History of Present Illness Consult details Consult date: 03/23/23 Reason for consult: other (Possible rectal prolapse) Requesting physician: Parrish Mena MD Narrative: This is a 37-year-old man with a history of alcohol abuse, chronic pancreatitis, schizoaffective disorder, tobacco use, and multiple other medical problems. He presented to the ER 2 nights ago with abdominal pain and vomiting. Was found have acute on chronic pancreatitis and has been admitted. Apparently, last night he was straining to have a bowel movement and felt a bulging with rectal pain following a bowel movement. He told nursing when this occurred and the hospitalist consulted our service for possible rectal prolapse. He is now seen this morning. He reports only mild soreness at the rectum, but no longer having any pain. Labs show normal hemoglobin. He does report some minor rectal bleeding last night and this morning. The patient reports chronic diarrhea for many years. He reports constantly being irritated and having rectal pain for many years. This occurs nearly daily. He reports knowing he has hemorrhoids. He states that at times he can feel a rectal bulge but has not seen a surgeon or been evaluated for this in the past. He reports having rectal bleeding every day that ranges from few drops to some dripping of blood in the toilet after bowel movements. He reports having at least 5-10 episodes of diarrhea daily for many years. He reports using preparation H at times for his hemorrhoids that does seem to help. Reports being told in the past to take a fiber supplement, but has not done so. He has had multiple colonoscopies with his last being in 2020 reportedly without any significant findings other than hemorrhoids. Review of Systems Review of Systems: All systems reviewed & are unremarkable except as noted in HPI and below Constitutional: Constitutional: Reports no additional constitutional complaints, Denies chills, Denies fatigue and Denies fever(s) Eyes: Eyes: Reports no additional eye complaints ENT: Reports system reviewed and no additional complaints, except as documented and Denies dizziness Cardiovascular: Cardiovascular: Reports no additional cardiovascular complaints, Denies chest pain and Denies leg edema Respiratory: Respiratory: Reports no ad
--- NOTE | 2023-03-23 10:30 | P.PNIM_ITS ---
Progress Note: A&P Assessment and Plan (1) Acute on chronic pancreatitis: Code(s): K85.90 - Acute pancreatitis without necrosis or infection, unspecified; K86.1 - Other chronic pancreatitis Status: Acute Assessment and Plan: * Presented to the ED with complaints of abdominal pain, nausea and vomiting * Lipase elevated at 1970 at admission * Lipase currently of 3411 * CT of the abdomen and pelvis showed acute pancreatitis * Related to ETOH abuse * Drink cessation given * IV fluids at 125 * Clear liquid diet * Trend labs * Change pain medications from morphine to Dilaudid, add toradol * Encourage PO pain medications (2) COPD (chronic obstructive pulmonary disease): Onset Date: ~03/25/22 Qualifiers: COPD type: emphysema Emphysema type: unspecified Qualified Code(s): J43.9 - Emphysema, unspecified Code(s): J44.9 - Chronic obstructive pulmonary disease, unspecified Status: Acute Assessment and Plan: * Stable not in acute exacerbation * Continue home albuterol * Trend Resp status * Smoking cessation provided for 6 minutes * Stable (3) Essential hypertension: Code(s): I10 - Essential (primary) hypertension Status: Acute Assessment and Plan: * Current BP is 135/88 * Continue home irbasartan, and amlodipine * Trend BP * adjust therapy as indicated (4) Alcohol abuse: Code(s): F10.10 - Alcohol abuse, uncomplicated Status: Acute Assessment and Plan: * Most likely the cause of the acute pancreatitis * Folic acid and thiamine ordered * ETOH level was <10 * CIWA * Drinking cessation ordered (5) Schizoaffective disorder: Qualifiers: Schizoaffective disorder type: bipolar Qualified Code(s): F25.0 - Schizoaffective disorder, bipolar type Code(s): F25.9 - Schizoaffective disorder, unspecified Status: Acute Assessment and Plan: * Controlled * Continue home haldol * Hold the paliperidone palm * Trend mood (6) Marijuana abuse: Code(s): F12.10 - Cannabis abuse, uncomplicated Status: Acute Assessment and Plan: * Contributing to the nausea and vomiting * Cessation education given (7) Tobacco dependence: Code(s): F17.200 - Nicotine dependence, unspecified, uncomplicated Status: Acute Assessment and Plan: * Smoking cessation given for 6 minutes * Nicotine patch ordered * Consider adding gum (8) Hypothyroidism: Qualifiers: Hypothyroidism type: postoperative Qualified Code(s): E89.0 - Postprocedural hypothyroidism Code(s): E03.9 - Hypothyroidism, unspecified Status: Chronic Assessment and Plan: * HX of thyroid cancer with thyroidectomy * Continue home levothyroxine * Consider checking TSH * Stable (9) Acute hyponatremia: Code(s): E87.1 - Hypo-osmolality and hyponatremia Status: Acute Assessment and Plan: * Sodium 126 at admission * Currently 134 * NACL at 125ml/hr * Continue to trend * related to ETOH abuse * Consider Nephrology if continues to worsen * Consider urine labs if indicated (10) Internal hemorrhoids: Code(s):
--- NOTE | 2023-03-23 10:30 | PM.IMPN ---
Progress Note: A&P Assessment and Plan (1) Acute on chronic pancreatitis: Code(s): K85.90 - Acute pancreatitis without necrosis or infection, unspecified; K86.1 - Other chronic pancreatitis Status: Acute Assessment and Plan: Presented to the ED with complaints of abdominal pain, nausea and vomiting Lipase elevated at 1970 at admission Lipase currently of 3411 CT of the abdomen and pelvis showed acute pancreatitis Related to ETOH abuse Drink cessation given IV fluids at 125 Clear liquid diet Trend labs Change pain medications from morphine to Dilaudid, add toradol Encourage PO pain medications (2) COPD (chronic obstructive pulmonary disease): Onset Date: ~03/25/22 Qualifiers: COPD type: emphysema Emphysema type: unspecified Qualified Code(s): J43.9 - Emphysema, unspecified Code(s): J44.9 - Chronic obstructive pulmonary disease, unspecified Status: Acute Assessment and Plan: Stable not in acute exacerbation Continue home albuterol Trend Resp status Smoking cessation provided for 6 minutes Stable (3) Essential hypertension: Code(s): I10 - Essential (primary) hypertension Status: Acute Assessment and Plan: Current BP is 135/88 Continue home irbasartan, and amlodipine Trend BP adjust therapy as indicated (4) Alcohol abuse: Code(s): F10.10 - Alcohol abuse, uncomplicated Status: Acute Assessment and Plan: Most likely the cause of the acute pancreatitis Folic acid and thiamine ordered ETOH level was <10 CIWA Drinking cessation ordered (5) Schizoaffective disorder: Qualifiers: Schizoaffective disorder type: bipolar Qualified Code(s): F25.0 - Schizoaffective disorder, bipolar type Code(s): F25.9 - Schizoaffective disorder, unspecified Status: Acute Assessment and Plan: Controlled Continue home haldol Hold the paliperidone palm Trend mood (6) Marijuana abuse: Code(s): F12.10 - Cannabis abuse, uncomplicated Status: Acute Assessment and Plan: Contributing to the nausea and vomiting Cessation education given (7) Tobacco dependence: Code(s): F17.200 - Nicotine dependence, unspecified, uncomplicated Status: Acute Assessment and Plan: Smoking cessation given for 6 minutes Nicotine patch ordered Consider adding gum (8) Hypothyroidism: Qualifiers: Hypothyroidism type: postoperative Qualified Code(s): E89.0 - Postprocedural hypothyroidism Code(s): E03.9 - Hypothyroidism, unspecified Status: Chronic Assessment and Plan: HX of thyroid cancer with thyroidectomy Continue home levothyroxine Consider checking TSH Stable (9) Acute hyponatremia: Code(s): E87.1 - Hypo-osmolality and hyponatremia Status: Acute Assessment and Plan: Sodium 126 at admission Currently 134 NACL at 125ml/hr Continue to trend related to ETOH abuse Consider Nephrology if continues to worsen Consider urine labs if indicated (10) Internal hemorrhoids: Code(s): K64.8 - Other hemorrhoids Status: Acute Assessment and Plan: Appears to have prolapse throughout the night General surgery consulted Suppository and steroids on board Trend H&H Stable Time Spent With Patient Time: 56 minutes Time with patient: Greater than 35 minutes Subjective Date/time seen: 03/23/23 06:44 Interval history: 03/23/23 1030 Patient was lying in bed. Patient was having hard time today. Throughout the night he had a prolapsed anus. He stated that his anus is been bleeding a lot. He does have abdominal pain he stated this all over. When I walked in the room he was bleeding from his anus. General surgery has been consulted. He did
[2023-03-23] MEDS: KETOROLAC 30 MG/ML VIAL (*BKC) IV PUSH ×2 (10:57→17:29)
[2023-03-23] MEDS: FOLIC ACID 1 MG/0.2 ML INJ IV PUSH (11:23)
[2023-03-23 14:00] VITALS: BP 126/85; PULSE 94; RESP 16; TEMP 37.5; O2SAT 100
[2023-03-23] MEDS: HYDROCORTISONE ACETATE 25 MG SUPPOSITORY RECTAL ×2 (15:20→20:52)
[2023-03-23 21:25] VITALS: O2SAT 99
[2023-03-23 22:00] VITALS: BP 137/85; PULSE 91; RESP 16; TEMP 36.5; O2SAT 99
[2023-03-24] MEDS: HYDROmorphone HCL INJ (*CRX) 1 MG/ML SYR 0.5 MG IV PUSH ×4 (01:57→18:40)
[2023-03-24] MEDS: KETOROLAC 30 MG/ML VIAL (*BKC) IV PUSH (04:33)
[2023-03-24] MEDS: LEVOTHYROXINE SODIUM 125 MCG TABLET PO (05:10)
[2023-03-24 05:45] VITALS: BP 129/82; PULSE 89; RESP 16; TEMP 36.5; O2SAT 96
[2023-03-24] MEDS: HYDROcodone/acetaminophen (*CRX) 5-325 MG TABLET 1 TAB PO ×3 (06:49→20:54)
[2023-03-24] MEDS: SODIUM CHLORIDE 0.9% IV 1,000 ML 125 ML IV CONT ×2 (06:49→16:55)
[2023-03-24 06:54] LABS: Basophils Percent Auto 0.3 % (0.2-1.2); Eosinophils Absolute Auto 0.2 K/mm3 (0-0.3); Eosinophils Percent Auto 2.1 % (0-4.4); Hemoglobin 12.1 g/dL (14.0-18.0); Immature Granulocyte Absolute 0.04 K/mm3 (0.00-0.031); Immature Granulocyte Percent A 0.4 % (0-0.5); Lymphocytes Absolute Auto 2.13 K/mm3 (0.9-3.2); Lymphocytes Percent Auto 20.5 % (18.3-44.2); Mean Corpuscular HGB Conc 33.6 g/dl (32-36); Mean Corpuscular Hemoglobin 32.3 pg (26-34); Mean Platelet Volume 9.5 fl (7.4-10.4); Monocytes Absolute Auto 0.8 K/mm3 (0.1-0.6); Monocytes Percent Auto 7.2 % (2.6-8.5); Neutrophils Absolute Auto 7.2 K/mm3 (1.3-6.7); Neutrophils Percent Auto 69.5 % (45.5-73.1); Platelet Count Result 307 k/mm3 (150-375); Red Blood Count 3.75 M/mm3 (4.6-6.20); Red Cell Distribution Width 12.6 % (11.5-14.5); White Blood Count 10.4 K/mm3 (4.5-10.0)
[2023-03-24 07:11] LABS: Alanine Aminotransferase 26 U/L (6-50); Albumin Level 3.5 g/dL (3.5-5.1); Alkaline Phosphatase 127 U/L (38-126); Anion Gap 11 mmol/L (8-16); Aspartate Amino Transferase 28 U/L (17-59); Bilirubin,Total 0.4 mg/dL (0.2-1.3); Calcium 8.5 mg/dL (8.4-10.2); Carbon Dioxide 23 mmol/L (22-30); Chloride 103 mmol/L (98-107); Estimated CRCL calculation 130 ml/min; Estimated Glomerular Filt Rate > 60; Glucose 129 mg/dL (65-110); Lipase 1047 U/L (23-300); Potassium 2.9 mmol/L (3.4-5.0); Sodium 137 mmol/L (137-145)
[2023-03-24 08:48] LABS: Blood Urea Nitrogen < 2 mg/dL (9-20)
[2023-03-24] MEDS: NICOTINE (*PBKC) 21 MG PATCH 1 PATCH TRANSDERM (08:59)
[2023-03-24] MEDS: amLODIPine BESYLATE 5 MG TABLET 10 MG PO (09:00)
[2023-03-24] MEDS: THIAMINE HCL 200 MG/2 ML VIAL 100 MG IV PUSH (09:00)
[2023-03-24] MEDS: POTASSIUM CHLORIDE 20 MEQ PACKET (FOR LIQUID) 40 MEQ PO ×2 (09:00→09:11)
[2023-03-24] MEDS: NICOTINE (*PBKC) 4 MG GUM PO ×5 (09:00→18:41)
[2023-03-24] MEDS: IRBESARTAN 150 MG TABLET PO (09:00)
[2023-03-24] MEDS: HALOPERIDOL 5 MG TABLET PO ×3 (09:00→16:55)
[2023-03-24] MEDS: HYDROCORTISONE ACETATE 25 MG SUPPOSITORY RECTAL ×2 (09:02→20:54)
[2023-03-24] MEDS: PANTOPRAZOLE SODIUM IV 40 MG VIAL IV PUSH (09:06)
[2023-03-24] MEDS: FOLIC ACID 1 MG/0.2 ML INJ IV PUSH (09:06)
--- NOTE | 2023-03-24 10:28 | PM.PNGS ---
Progress Note: A&P Assessment and Plan (1) Internal hemorrhoids: Code(s): K64.8 - Other hemorrhoids Status: Acute Assessment and Plan: Rectal pain and bleeding improved with Anusol. Will continue steroid cream, sitz baths, and monitor. Plan for eventual hemorrhoidectomy as an outpatient once inflammation resolves. Plan I have discussed the patient's case and plan of care with Dr. Fisher. Subjective Subjective Date/Time Seen: 03/24/23 10:28 Patient reports: no new complaints, feels better and pain is less (Abdominal and rectal pain improved) Interval history: Patient reports feeling better today. He has only had minimal rectal bleeding with bowel movements. No significant rectal bleeding. Reports rectal pain and swelling feels better today. No other complaints at this time. Review of Systems Review of Systems: ROS unchanged Exam Narrative: External rectal exam: grade IV internal hemorrhoids and thrombosed external hemorrhoid with inflammation improved, no active bleeding Objective Data Vital Signs Vital Signs: Vital Signs - 24 hr 03/23/23 14:00 03/23/23 20:00 03/23/23 22:00 Temperature 99.5 F 97.7 F Pulse Rate 94 91 Respiratory Rate 16 16 Blood Pressure 126/85 137/85 Pulse Oximetry 100 99 Oxygen Delivery Room Air 03/23/23 21:25 03/24/23 05:45 Temperature 97.7 F Pulse Rate 89 Respiratory Rate 16 Blood Pressure 129/82 Pulse Oximetry 99 96 Oxygen Delivery Room Air Intake/Output Intake/Output: Intake & Output 03/21/23 03/22/23 03/23/23 03/24/23 23:59 23:59 23:59 23:59 Intake Total 5272 4666 1700 Output Total 700 4950 1800 Balance 4562 -284 -100 Meds/Results Medications: Active Medications Generic Name Dose Route Start Last Admin Trade Name Freq PRN Reason Stop Dose Admin Hydrocodone Bitart/Acetaminophen 1 tab 03/22/23 08:34 03/24/23 06:49 Hydrocodone/Acetaminophen (*Crx) 5-325 Mg Tablet PO 1 tab Q4H PRN Administration Moderate Pain (4-6) Amlodipine Besylate 10 mg 03/22/23 09:00 03/24/23 09:00 Amlodipine Besylate 5 Mg Tablet PO 10 mg DAILY BHAVNA Administration Enoxaparin Sodium 40 mg 03/22/23 09:00 03/23/23 08:21 Enoxaparin 40 Mg/0.4 Ml Syringe SUB-Q 40 mg DAILY BHAVNA Administration Famotidine 20 mg 03/22/23 08:31 03/22/23 09:08 Famotidine 20 Mg Tablet PO 20 mg BID PRN Administration Indigestion Folic Acid 1 mg 03/22/23 09:00 03/24/23 09:06 Folic Acid 1 Mg/0.2 Ml Inj IV PUSH 1 mg QAM BHAVNA Administration Haloperidol 5 mg 03/23/23 09:00 03/24/23 09:00 Haloperidol 5 Mg Tablet PO 5 mg TID BHAVNA Administration Hydrocortisone Acetate 25 mg 03/23/23 10:23 03/24/23 09:02 Hydrocortisone Acetate 25 Mg Suppository RECTAL 25 mg Q12HR BHAVNA Administration Hydromorphone HCl 0.5 mg 03/22/23 15:43 03/24/23 09:11 Hydromorphone Hcl Inj (*Crx) 1 Mg/Ml Syr IV PUSH 0.5 mg Q3H PRN Administration Breakthrough Pain Sodium Chloride 1,000 mls @ 100 mls/hr 03/22/23 06:45 03/24/23 06:49 Normal Saline Iv IV CONT 125 mls/hr .Q10H BHAVNA Administration Irbesartan 150 mg 03/22/23 09:00 03/24/23 09:00 Irbesartan 150 Mg Tablet PO 150 mg DAILY BHAVNA Administration Ketorolac Tromethamine 30 mg 03/22/23 15:41 03/24/23 04:33 Ketorolac 30 Mg/Ml Vial (*Bkc) IV PUSH 30 mg Q6H PRN Administration Pain Rated 7-10 Levothyroxine Sodium 125 mcg 03/22/23 09:00 03/24/23 05:10 Levothyroxine Sodium 125 Mcg Tablet PO 125 mcg DAILY@0630 BHAVNA Administration Nicotine 1 patch 03/23/23 09:00 03/24/23 08:59 Nicotine (*Pbkc) 21 Mg Patch TRANSDERM 1 patch QAM BHAVNA Administration Nicotine Polacrilex 4 mg 03/23/23 06:47 03/24/23 09:00 Nicotine (*Pbkc) 4 Mg Gum PO 4 mg PRN PRN Administration Nicotine Cravings Ondansetron HCl 4 mg 03/22/23 06:43 Ondansetron Inj 4 Mg/2 Ml Vial IV PUSH Q4H PRN Nausea Pantoprazole
--- NOTE | 2023-03-24 13:30 | P.PNIM_ITS ---
Progress Note: A&P Assessment and Plan (1) Acute on chronic pancreatitis: Code(s): K85.90 - Acute pancreatitis without necrosis or infection, unspecified; K86.1 - Other chronic pancreatitis Status: Acute Assessment and Plan: * Presented to the ED with complaints of abdominal pain, nausea and vomiting * Lipase elevated at 1970 at admission * Lipase currently of 1047, continue to trend * CT of the abdomen and pelvis showed acute pancreatitis * Related to ETOH abuse * Drink cessation given * IV fluids * Advance diet as tolerated * Trend labs * Change pain medications from morphine to Dilaudid, add toradol * Encourage PO pain medications (2) COPD (chronic obstructive pulmonary disease): Onset Date: ~03/25/22 Qualifiers: COPD type: emphysema Emphysema type: unspecified Qualified Code(s): J43.9 - Emphysema, unspecified Code(s): J44.9 - Chronic obstructive pulmonary disease, unspecified Status: Acute Assessment and Plan: * Stable not in acute exacerbation * Continue home albuterol * Trend Resp status * Smoking cessation provided for 6 minutes * Stable (3) Essential hypertension: Code(s): I10 - Essential (primary) hypertension Status: Acute Assessment and Plan: * Current BP is 135/88 * Continue home irbasartan, and amlodipine * Trend BP * adjust therapy as indicated (4) Alcohol abuse: Code(s): F10.10 - Alcohol abuse, uncomplicated Status: Acute Assessment and Plan: * Most likely the cause of the acute pancreatitis * Folic acid and thiamine ordered * ETOH level was <10 * CIWA * Drinking cessation ordered (5) Schizoaffective disorder: Qualifiers: Schizoaffective disorder type: bipolar Qualified Code(s): F25.0 - Schizoaffective disorder, bipolar type Code(s): F25.9 - Schizoaffective disorder, unspecified Status: Acute Assessment and Plan: * Controlled * Continue home haldol * Hold the paliperidone palm * Trend mood (6) Marijuana abuse: Code(s): F12.10 - Cannabis abuse, uncomplicated Status: Acute Assessment and Plan: * Contributing to the nausea and vomiting * Cessation education given (7) Tobacco dependence: Code(s): F17.200 - Nicotine dependence, unspecified, uncomplicated Status: Acute Assessment and Plan: * Smoking cessation given for 6 minutes * Nicotine patch ordered * Consider adding gum (8) Hypothyroidism: Qualifiers: Hypothyroidism type: postoperative Qualified Code(s): E89.0 - Postprocedural hypothyroidism Code(s): E03.9 - Hypothyroidism, unspecified Status: Chronic Assessment and Plan: * HX of thyroid cancer with thyroidectomy * Continue home levothyroxine * Consider checking TSH * Stable (9) Acute hyponatremia: Code(s): E87.1 - Hypo-osmolality and hyponatremia Status: Acute Assessment and Plan: * Sodium 126 at admission * Currently 137 * NACL at 125ml/hr * Continue to trend * related to ETOH abuse (10) Internal hemorrhoids: Code(s): K64.8 - Other hemorrhoids Status: Acute Assessme
--- NOTE | 2023-03-24 13:30 | PM.IMPN ---
Progress Note: A&P Assessment and Plan (1) Acute on chronic pancreatitis: Code(s): K85.90 - Acute pancreatitis without necrosis or infection, unspecified; K86.1 - Other chronic pancreatitis Status: Acute Assessment and Plan: Presented to the ED with complaints of abdominal pain, nausea and vomiting Lipase elevated at 1970 at admission Lipase currently of 1047, continue to trend CT of the abdomen and pelvis showed acute pancreatitis Related to ETOH abuse Drink cessation given IV fluids Advance diet as tolerated Trend labs Change pain medications from morphine to Dilaudid, add toradol Encourage PO pain medications (2) COPD (chronic obstructive pulmonary disease): Onset Date: ~03/25/22 Qualifiers: COPD type: emphysema Emphysema type: unspecified Qualified Code(s): J43.9 - Emphysema, unspecified Code(s): J44.9 - Chronic obstructive pulmonary disease, unspecified Status: Acute Assessment and Plan: Stable not in acute exacerbation Continue home albuterol Trend Resp status Smoking cessation provided for 6 minutes Stable (3) Essential hypertension: Code(s): I10 - Essential (primary) hypertension Status: Acute Assessment and Plan: Current BP is 135/88 Continue home irbasartan, and amlodipine Trend BP adjust therapy as indicated (4) Alcohol abuse: Code(s): F10.10 - Alcohol abuse, uncomplicated Status: Acute Assessment and Plan: Most likely the cause of the acute pancreatitis Folic acid and thiamine ordered ETOH level was <10 CIWA Drinking cessation ordered (5) Schizoaffective disorder: Qualifiers: Schizoaffective disorder type: bipolar Qualified Code(s): F25.0 - Schizoaffective disorder, bipolar type Code(s): F25.9 - Schizoaffective disorder, unspecified Status: Acute Assessment and Plan: Controlled Continue home haldol Hold the paliperidone palm Trend mood (6) Marijuana abuse: Code(s): F12.10 - Cannabis abuse, uncomplicated Status: Acute Assessment and Plan: Contributing to the nausea and vomiting Cessation education given (7) Tobacco dependence: Code(s): F17.200 - Nicotine dependence, unspecified, uncomplicated Status: Acute Assessment and Plan: Smoking cessation given for 6 minutes Nicotine patch ordered Consider adding gum (8) Hypothyroidism: Qualifiers: Hypothyroidism type: postoperative Qualified Code(s): E89.0 - Postprocedural hypothyroidism Code(s): E03.9 - Hypothyroidism, unspecified Status: Chronic Assessment and Plan: HX of thyroid cancer with thyroidectomy Continue home levothyroxine Consider checking TSH Stable (9) Acute hyponatremia: Code(s): E87.1 - Hypo-osmolality and hyponatremia Status: Acute Assessment and Plan: Sodium 126 at admission Currently 137 NACL at 125ml/hr Continue to trend related to ETOH abuse (10) Internal hemorrhoids: Code(s): K64.8 - Other hemorrhoids Status: Acute Assessment and Plan: Appears to have prolapse throughout the night General surgery consulted and recommending conservative management Suppository steroids on board, Sitz baths, and monitor Plan for eventual hemorrhoidectomy Trend H&H Stable Subjective Date/time seen: 03/24/23 13:30 Interval history: Patient states that he is doing much better today. He has intermittent abdominal pain but is much improved. He states that he would like to try a full liquid diet and I discussed that if he continues to have abdominal pain that we will have to go back to clear liquid and he is agreeable. If he does well with this may advance diet as tolerated. General surgery consult on patient
[2023-03-24 14:00] VITALS: BP 133/95; PULSE 103; RESP 18; TEMP 36.8; O2SAT 99
[2023-03-24 14:01] LABS: Potassium 4.3 mmol/L (3.4-5.0)
[2023-03-24] MEDS: ONDANSETRON INJ 4 MG/2 ML VIAL IV PUSH (16:04)
--- NOTE | 2023-03-24 19:03 | PC.NURSE ---
On 03/24/23, the RN (license pending), Loreto Alegre, provided care and completed [employer] documentation on this patient. I have reviewed the RN's (license pending) documentation and agree with the findings.
[2023-03-24 22:00] VITALS: BP 126/84; PULSE 94; RESP 14; TEMP 36.3; O2SAT 96
[2023-03-25] MEDS: HYDROmorphone HCL INJ (*CRX) 1 MG/ML SYR 0.5 MG IV PUSH ×2 (01:05→04:59)
[2023-03-25] MEDS: SODIUM CHLORIDE 0.9% IV 1,000 ML 100 ML IV CONT (04:54)
[2023-03-25] MEDS: LEVOTHYROXINE SODIUM 125 MCG TABLET PO (04:54)
[2023-03-25] MEDS: NICOTINE (*PBKC) 4 MG GUM PO ×3 (05:22→14:04)
[2023-03-25 06:00] VITALS: BP 142/92; PULSE 104; RESP 18; TEMP 36.3; O2SAT 98
[2023-03-25 07:00] LABS: Hematocrit 39.7 % (42.0-52.0); Hemoglobin 13.3 g/dL (14.0-18.0); Mean Corpuscular HGB Conc 33.5 g/dl (32-36); Mean Corpuscular Volume 98.5 fl (80-100); Mean Platelet Volume 9.4 fl (7.4-10.4); Platelet Count Result 332 k/mm3 (150-375); Red Blood Count 4.03 M/mm3 (4.6-6.20); Red Cell Distribution Width 12.9 % (11.5-14.5); White Blood Count 11.8 K/mm3 (4.5-10.0)
[2023-03-25 07:05] LABS: Alanine Aminotransferase 26 U/L (6-50); Albumin Level 4.2 g/dL (3.5-5.1); Alkaline Phosphatase 138 U/L (38-126); Anion Gap 7 mmol/L (8-16); Aspartate Amino Transferase 28 U/L (17-59); Bilirubin,Total 0.3 mg/dL (0.2-1.3); Calcium 9.5 mg/dL (8.4-10.2); Carbon Dioxide 28 mmol/L (22-30); Chloride 99 mmol/L (98-107); Estimated CRCL calculation 130 ml/min; Estimated Glomerular Filt Rate > 60; Glucose 140 mg/dL (65-110); Potassium 4.1 mmol/L (3.4-5.0); Sodium 134 mmol/L (137-145)
[2023-03-25 07:52] VITALS: PULSE 94; O2SAT 98
[2023-03-25 08:12] LABS: Blood Urea Nitrogen < 2 mg/dL (9-20)
[2023-03-25 08:26] LABS: Lipase 763 U/L (23-300)
[2023-03-25] MEDS: FOLIC ACID 1 MG/0.2 ML INJ IV PUSH (08:28)
[2023-03-25] MEDS: NICOTINE (*PBKC) 21 MG PATCH 1 PATCH TRANSDERM (08:28)
[2023-03-25] MEDS: HALOPERIDOL 5 MG TABLET PO ×2 (08:28→14:03)
[2023-03-25] MEDS: amLODIPine BESYLATE 5 MG TABLET 10 MG PO (08:28)
[2023-03-25] MEDS: IRBESARTAN 150 MG TABLET PO (08:28)
[2023-03-25] MEDS: HYDROCORTISONE ACETATE 25 MG SUPPOSITORY RECTAL (08:28)
[2023-03-25] MEDS: THIAMINE HCL 200 MG/2 ML VIAL 100 MG IV PUSH (08:29)
[2023-03-25] MEDS: PANTOPRAZOLE SODIUM IV 40 MG VIAL IV PUSH (08:29)
[2023-03-25 08:30] VITALS: O2SAT 98
[2023-03-25] MEDS: HYDROcodone/acetaminophen (*CRX) 5-325 MG TABLET 1 TAB PO (08:41)
[2023-03-25 14:00] VITALS: BP 135/85; PULSE 105; RESP 16; TEMP 36.7; O2SAT 100
--- NOTE | 2023-03-25 14:52 | PM.DS ---
DS: Admitting Diagnosis Discharge Date 03/25/23 Admitting Diagnosis Acute pancreatitis DS: Discharge Diagnosis Discharge Diagnosis (1) Acute on chronic pancreatitis: Code(s): K85.90 - Acute pancreatitis without necrosis or infection, unspecified; K86.1 - Other chronic pancreatitis Status: Acute (2) COPD (chronic obstructive pulmonary disease): Onset Date: ~03/25/22 Qualifiers: COPD type: emphysema Emphysema type: unspecified Qualified Code(s): J43.9 - Emphysema, unspecified Code(s): J44.9 - Chronic obstructive pulmonary disease, unspecified Status: Acute (3) Essential hypertension: Code(s): I10 - Essential (primary) hypertension Status: Acute (4) Alcohol abuse: Code(s): F10.10 - Alcohol abuse, uncomplicated Status: Acute (5) Schizoaffective disorder: Qualifiers: Schizoaffective disorder type: bipolar Qualified Code(s): F25.0 - Schizoaffective disorder, bipolar type Code(s): F25.9 - Schizoaffective disorder, unspecified Status: Acute (6) Marijuana abuse: Code(s): F12.10 - Cannabis abuse, uncomplicated Status: Acute (7) Tobacco dependence: Code(s): F17.200 - Nicotine dependence, unspecified, uncomplicated Status: Acute (8) Hypothyroidism: Qualifiers: Hypothyroidism type: postoperative Qualified Code(s): E89.0 - Postprocedural hypothyroidism Code(s): E03.9 - Hypothyroidism, unspecified Status: Chronic (9) Acute hyponatremia: Code(s): E87.1 - Hypo-osmolality and hyponatremia Status: Acute (10) Internal hemorrhoids: Code(s): K64.8 - Other hemorrhoids Status: Acute DS: Summary Hospital Course Hospital Course: 37-year-old male with past medical history of chronic pancreatitis, alcohol abuse, tobacco abuse and post cholecystectomy presented to the ED on 03/22/2023 due to complaint of abdominal pain with nausea vomiting. Patient drinks approximately 6 beers daily and admits to marijuana use as well. He did not have any fever, chills, diarrhea, lightheadedness, dizziness or weakness. He is found to have elevated lipase of 1970 and elevated white count of 15.8. CT abdomen pelvis revealing acute pancreatitis. Patient received analgesics, antiemetics and IV fluids during his stay. Patient's diet was advanced as tolerated. On day of discharge he was tolerating bland diet and p.o. pain medications. His labs and vital signs are stable and he is medically clear for discharge at this time. Patient also has a history of internal hemorrhoids and intermittently has rectal bleeding. He has never been worked upper diagnosed with anything regarding his rectum before. General surgery was consulted regarding the rectal prolapse. General surgery recommended hydrocortisone cream and follow-up as an outpatient for future hemorrhoidectomy. Patient's H&H remained stable during his hospital stay. Time Spent with Patient Time attestation: Total time spent providing and/or coordinating discharge services: Exam Narrative: GENERAL: Comfortable, no acute distress HENMT: moist mucous membranes EYES: EOM intact b/l NECK: no lymphadenopathy RESPIRATORY: clear to auscultation CARDIO: RRR GI: soft, nontender, bowel sounds present SKIN: no rashes EXTREMITIES: no edema, redness or tenderness DS: Data Data Completed and Pending Labs on day of discharge: Labs from last 24 hours 03/25/23 03/25/23 06:34 06:31 WBC 11.8 H RBC 4.03 L Hgb 13.3 L Hct 39.7 L MCV 98.5 MCH 33.0 MCHC 33.5 RDW 12.9 Plt Count 332 MPV 9.4 Sodium 134 L Potassium 4.1 Chloride 99 Carbon Dioxide 28 Anion Gap 7 L BUN < 2 L Creatinine 0.60 L Estim Creat Clear Calc 130 Estimated GFR > 60 Glucose 140 H Calcium 9.5 Total Bilirubin 0.3 AST 28 ALT 26 Alkaline Phosphatase 138 H Total Protein 7.0 Albumin 4.2 Lipase 763 H
== END 2023-03-25 15:40 | disposition home or self-care (01) | DRG 282 ==
LOC: ANHED 05:41 → ANH3MEDSUR 07:25
PROVIDERS: Nurse Practitioner; Admitting Provider Internal Medicine; Emergency Provider Emergency Medicine; PCP Family Medicine; Visit Provider Internal Medicine Critical Care Medicine
DX: K85.20 Alcohol induced acute pancreatitis without necrosis or infection (principal); F25.9 Schizoaffective disorder, unspecified; K76.0 Fatty (change of) liver, not elsewhere classified; K86.1 Other chronic pancreatitis; F10.10 Alcohol abuse, uncomplicated; F12.10 Cannabis abuse, uncomplicated; E87.1 Hypo-osmolality and hyponatremia; J44.9 Chronic obstructive pulmonary disease, unspecified; I10 Essential (primary) hypertension; K64.3 Fourth degree hemorrhoids; K64.5 Perianal venous thrombosis; E89.0 Postprocedural hypothyroidism; F17.210 Nicotine dependence, cigarettes, uncomplicated; E78.5 Hyperlipidemia, unspecified; F98.8 Other specified behavioral and emotional disorders with onset usually occurring in childhood and adolescence; F32.A Depression, unspecified; F41.9 Anxiety disorder, unspecified; Z90.49 Acquired absence of other specified parts of digestive tract; Z85.850 Personal history of malignant neoplasm of thyroid
CPT/HCPCS: 36415; 74177; 80053; 80307; 81003; 83690; 83735; 84132; 85025; 85027; 96361; 96372; 96374; 96375; 96376; 99285; A9270; C9113; G0378; G0379; J1170; J1650; J1885; J2270; J2405; J3411; J7030; Q9967

== ENCOUNTER 2023-05-20 03:18 | Day surgery (SDC) | payer OTHER, SELFPAY ==
[2023-05-07 16:07] VITALS: BMI 22.6
--- NOTE | 2023-05-07 16:16 | PC.NURSE ---
Addendum entered by Obed Ovalles RN 05/07/23 16:25: Nothing to eat or drink after midnight except for water with medications. Original Note: Report to the Outpatient Waiting Room, entrance under the green pavilion located off [facility], at time _0600_ on date _[id number]_. Planned Procedure Time: _0730_. Time changes happen often and if your time is changed the preop area will call you the afternoon before. - You and your visitor will be asked to self-screen and do not enter if you have any COVID symptoms. - A mask is optional within the hospital at this time. Patients may have clear liquids (water, carbonated beverages, clear teas, apple juice) until 3 hours prior to surgery with a maximum of 20 ounces. - No food from midnight until time of surgery Take the following medications with a SIP of water the morning of surgery: ___Amlodipine, Haloperidol, and Levothyroxine DO NOT STOP ANY OF YOUR OTHER PRESCRIPTION MEDICATIONS PRIOR TO SURGERY ?EXCEPT THE FOLLOWING Medications to discontinue per physician None Date to take last dose Please no make-up, nail italian, hairspray, perfume, deodorant, or body powder the day of surgery. No jewelry (including any body piercings) or valuables the day of surgery, leave them at home. Please take a shower or bath the night before, or the morning of, surgery with an antibacterial soap. Wear comfortable, loose fitting clothing. - Jewelry must be removed prior to entering the operating room. Rings and piercings that are not removed may be cut off. - The hospital will not accept responsibility for valuables. - Please leave all valuables, including medications, at home the day of surgery. If you are going home after surgery, a licensed test car driver must drive you home. - NO public transportation without another adult if you receive anesthesia. - We recommend that an adult stay with you for 24 hours following discharge. - We also recommend that you do not drive, make important decision, drink alcoholic beverages, or take any drugs that were not prescribed by your health care provider for at least 24 hours after your discharge time. Follow any additional instructions given to you from your surgeon. If you or anyone in your household have experienced Covid symptoms in the past week, please notify your surgeon or the nurse liaison at the phone number below for possible testing. Telephone instructions given to __Zach___and asked if any additional questions and then verbalized understanding. Patient advised to call surgeon office or pre surgery nurse liaison [phone] if any additional questions.
--- NOTE | 2023-05-19 14:20 | WPDANESEPPF ---
Anes - Initial Pre Proc Eval Procedure: Operation Date: 05/20/23 07:30 Proposed Procedures p Rectal Examination Under Anesthesia, Hemorrhoidectomy - Irina Fisher MD Date/Time: 05/19/23 14:20 Surgeon: Irina Fisher MD Pre Op Diagnosis: bleeding hemorrhoids Patient Data Age: 37 Gender: M Height: 1.73 m Weight: 67.7 kg Allergies Allergy/AdvReac Type Severity Reaction Status Date / Time No Known Allergies Allergy Verified 05/07/23 16:10 Home Medications Medication Instructions Recorded Confirmed Type haloperidol 5 mg tablet 5 mg PO TID agitation 03/25/22 05/07/23 History paliperidone palm (6 month) 1,092 1,092 mg IM [id number] 06/02/22 05/07/23 History mg/3.5 mL intramuscular syringe cholestyramine (with sugar) 4 gram 4 g PO DAILY PRN diarrhea #378 10/06/22 05/07/23 Rx oral powder grams albuterol sulfate 90 mcg/actuation 2 puff inhalation Q4H PRN 12/07/22 05/07/23 Rx aerosol inhaler (Ventolin HFA) shortness of breath or wheezing #8.5 grams irbesartan 150 mg tablet 150 mg PO DAILY #30 tabs 12/07/22 05/07/23 Rx amlodipine 10 mg tablet 10 mg PO DAILY #30 tabs 02/03/23 05/07/23 Rx famotidine 20 mg tablet (Pepcid) 20 mg PO BID PRN Indigestion 03/22/23 05/07/23 History levothyroxine 125 mcg tablet 125 mcg PO QAM 03/22/23 05/07/23 History folic acid 1 mg tablet 1 mg PO DAILY #30 tabs 03/23/23 05/07/23 Rx thiamine HCl (vitamin B1) 100 mg 100 mg PO DAILY #30 tabs 03/23/23 05/07/23 Rx tablet valacyclovir 500 mg tablet 500 mg PO DAILY #30 tabs 04/13/23 05/07/23 Rx Patient hx anesthesia problems: none Family hx anesthesia problems: none Results Review: All pre-operative results and documents have been reviewed as part of the pre-operative evaluation. [facility] Past Medical History Medical History (Updated 05/04/23 @ 13:38 by Claudette Hook [facility]) Acute alcoholic pancreatitis Acute bronchitis Acute pancreatitis (~03/22/23) Alcohol abuse Anxiety Attention deficit disorder BMI 23.0-23.9, adult Body mass index [BMI] 22.0-22.9, adult Chronic diarrhea after cholecystectomy Chronic low back pain without sciatica COPD (chronic obstructive pulmonary disease) (~03/25/22) 29 year history of smoking with chest x-ray 03/25/2022 with hyperinflation suggestive of COPD. Depression Essential hypertension Gastro-esophageal reflux disease without esophagitis Hemorrhoids Hepatic steatosis History of abscessed tooth requiring surgical drainage Hyperlipidemia total cholesterol 214, triglycerides elevated at 437, HDL 41 and LDL not calculated on 08/26/2021. Total cholesterol 212, triglycerides 329, HDL 63, LDL 105 with ratio 3.4 on 01/28/2023. Hypothyroidism TSH suppressed at less than 0.01 with free T4 slightly elevated at 2.5 on 08/26/2021. TSH 5.17, free T4 at 1.0, T3 total low at 63 on 01/28/2023. Male erectile dysfunction, unspecified (~2020) Neuroleptic-induced tardive dyskinesia Pain in left foot Pancreatitis Requiring hospitalization in Feb 2020, May 2020 and Feb 2021 attributed to alcohol abuse. Plantar wart of left foot (~2021) Psychiatric illness Recurrent acute pancreatitis Schizoaffective disorder Seizures Last seizure in 2018. Spontaneous pneumothorax Thyroid cancer (~2000) Status post thyroidectomy. Tobacco dependence 1 pack per day Vitamin B12 deficiency (01/28/23) level low at 347 with goal greater than 400 with folic acid 7.8 and hemoglobin 14.5 on 01/28/2023. Surgical History Surgical History History of chest tube placement Spontaneous left-sided pneumothorax. History of cholecystectomy History of thyroidectomy (~2000) Hx of umbilical hernia repair Family History Family History Father Acute myocardial infarction Cerebrovascular accident Mother Family history of malignant neoplasm of thyroid Diabetes mellitus Social History Social History (Reviewe
[2023-05-20] VITALS (7 sets, daily range): BP systolic 126–153; BP diastolic 46–102; PULSE 69–104; RESP 11–20; TEMP 36.7; O2SAT 94–99
[2023-05-20] MEDS: ACETAMINOPHEN 500 MG TABLET 1000 MG PO (06:09)
[2023-05-20] MEDS: LACTATED RINGERS 1,000 ML 30 ML IV CONT (06:35)
[2023-05-20] MEDS: KETOROLAC 15 MG/ML VIAL (*BKC) IV PUSH (06:35)
--- NOTE | 2023-05-20 07:16 | WPDHPUPDATE1 ---
History and Physical Update Update Date/Time: 05/20/23 07:16 History and Physical has been reviewed, including an updated exam of the patient. There are NO changes in the patient's condition. Risks, benefits, and alternatives have been discussed and questions answered. Patient agrees to proceed with procedure.
[2023-05-20] MEDS: ceFAZolin 2 GM/D5W 50 ML 2 GM/50 ML BAG IVPB (07:22)
[2023-05-20] MEDS: LIDOCAINE HCL 1% LOCAL INJ 20 ML VIAL INFILTRATE (07:45)
[2023-05-20] MEDS: LIDOCAINE HCL 2% GEL UROJET 10 ML PKG MUCOUS MEM (07:55)
--- NOTE | 2023-05-20 08:08 | W.PM.PROC2 ---
Procedure Note - Detailed Date of Procedure 05/20/23 Pre-op Diagnosis Grade 3, bleeding internal hemorrhoids, multiple external hemorrhoids with thrombosis Post-op Diagnosis Same Procedure Performed Exam under anesthesia, internal and external hemorrhoidectomy involving left lateral and right anterior positions Surgeon Irina Fisher MD Anesthesia General Indications 37 y/o M c multiple grade 3 internal hemorrhoids and external hemorrhoids c frequent flares causing pain, bleeding refractory to conservative measures. Findings grade 3 bleeding internal hemorrhoids, multiple external hemorrhoids predominately in L lateral and R anterior Description of Procedure The patient was taken to the operating room and placed in the modified lithotomy position. After adequate induction of general anesthesia, the patient was prepped and draped in the normal sterile fashion. A time-out was then done to verify the patient's identity, as well as the procedure being performed. I began by doing a digital exam. There was noted to be multiple external hemorrhoids, also 2 grade 3 internal hemorrhoids were noted. At this point, a bilateral pudendal block was done. Then used the lone Star retractor to further evaluate the anal canal as well as rectum, other than the noted hemorrhoids no other pathology was noted. I then began excising the internal hemorrhoids using the hand-held LigaSure device. The hemorrhoids were noted to be in the left lateral and right anterior positions. These hemorrhoids were noted to be very friable and bleeding. Once excised, hemostasis was gained with the Bovie cautery and pressure. I then excised multiple external hemorrhoids, most of which were thrombosed. Multiple hemorrhoids were excised using the LigaSure. Again, these were noted to be in the left lateral and right anterior columns. The specimens will be sent to pathology for further review. Hemostasis was noted at all excision sites. I then placed a piece of Gelfoam covered with lidocaine jelly into the rectal vault. The patient tolerated the procedure and was extubated in the operating room postop. He will be transferred to the recovery room in stable condition. Implants Gelfoam covered with lidocaine jelly in the rectal vault Estimated Blood Loss 100 Drains No Packing Yes Pathology Yes Complications No immediate complications Condition Stable Disposition PACU [facility] Billing Surgery - Charge Forward: Surgery Billing
[2023-05-20] MEDS: fentaNYL CITRATE INJ (*CRX) 100 MCG/2 ML VIAL 25 MCG IV PUSH ×2 (08:31→08:35)
[2023-05-20] MEDS: oxyCODONE HCL (*CRX) 5 MG TAB IR PO (08:48)
== END 2023-05-20 09:36 | disposition home or self-care (01) ==
PROVIDERS: PCP Family Medicine; Visit Provider Surgery
PROC: (CPT 46260; principal; 2023-05-20 07:30)
DX: K64.2 Third degree hemorrhoids (principal); K64.8 Other hemorrhoids; K64.5 Perianal venous thrombosis; K85.20 Alcohol induced acute pancreatitis without necrosis or infection; J44.9 Chronic obstructive pulmonary disease, unspecified; F41.9 Anxiety disorder, unspecified; I10 Essential (primary) hypertension; F32.A Depression, unspecified; K21.9 Gastro-esophageal reflux disease without esophagitis; E78.5 Hyperlipidemia, unspecified; K76.0 Fatty (change of) liver, not elsewhere classified; F25.9 Schizoaffective disorder, unspecified; G24.01 Drug induced subacute dyskinesia; G40.909 Epilepsy, unspecified, not intractable, without status epilepticus; E53.8 Deficiency of other specified B group vitamins; E89.0 Postprocedural hypothyroidism; Z85.850 Personal history of malignant neoplasm of thyroid; Z79.51 Long term (current) use of inhaled steroids; F17.210 Nicotine dependence, cigarettes, uncomplicated; F12.90 Cannabis use, unspecified, uncomplicated
CPT/HCPCS: 46260; 88304; A9270; J0690; J1100; J1885; J2250; J2405; J2704; J3010; J7120

== ENCOUNTER 2023-09-13 14:46 | Emergency (ER) | payer OTHER, SELFPAY ==
--- NOTE | ~2023-09-13 | XR_ITS ---
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 RESULT: Lines, tubes, and devices: Cholecystectomy clips. Lungs and pleura: Clear. Cardiomediastinal silhouette: Stable. Other: No acute osseous or upper abdominal finding. IMPRESSION: No acute cardiopulmonary process. Reviewed, dictated and finalized at location K. OLOGICAL EQUIPMENT SPECIALIST
--- NOTE | ~2023-09-13 | CT_ITS ---
EXAMINATION: CT brain wo con INDICATION: Seizure COMPARISON: None TECHNIQUE: Standard unenhanced head CT. The dose-length product (DLP) was 908.00 mGy-cm. The mA was a djusted according to patient size. Iterative reconstruction technique was employed. FINDINGS: No intracranial hemorrhage, acute infarction, or abnormal mass lesion. The ventricles are n ormal. No abnormal mass effect or midline shift. The vaughn-white matter differentiation is normal. The basal cisterns are patent. The orbits are normal. There is mild mucosal thickening of the paranasal sinuses. IMPRESSION: 1. No acute intracranial abnormality. Reviewed, dictated and finalized at location B. NG TUMBLER OPERATOR
[2023-09-13 14:46] VITALS: BP 116/62; PULSE 82; RESP 18; TEMP 36; O2SAT 95
[2023-09-13 15:08] VITALS: PULSE 76; O2SAT 98
--- NOTE | 2023-09-13 15:10 | ED.SEIZURE ---
HPI - Seizure General Chief Complaint: Seizure Stated Complaint: possible seizure Time Seen by Provider: 09/13/23 15:05 History of Present Illness HPI Narrative: Patient is a 38-year-old male with remote history of seizure, polysubstance abuse here with episode of loss of consciousness. Patient's helps with history. She notes he was in the passenger seat while she was driving when she looked over and he was not breathing and slumped over in the passenger seat. She notes that she started shaking him and he seemed to start moaning and breathing normally. She pulled over and EMS was called. By the time EMS arrived he seemed to be slowly coming to and now he is at his baseline. He does note bladder incontinence, denies tongue biting. denies seeing any tonic clonic seizure like activity. His last seizure was about 15 years ago, was attributed to his polysubstance use at that time. He is not currently on any antiepileptics, does not currently follow with a neurologist. Does have a primary care doctor that he can follow with closely. Denies any fever and chills. Has a chronic cough. No head trauma. Denies any drug or alcohol use today. Seizure History: Yes (Last seizure in 2018) Related Data Home Medications Medication Instructions Recorded Confirmed haloperidol 5 mg tablet 5 mg PO TID agitation 03/25/22 09/13/23 levothyroxine 125 mcg tablet 125 mcg PO QAM 03/22/23 09/13/23 Allergies Allergy/AdvReac Type Severity Reaction Status Date / Time No Known Allergies Allergy Verified 09/13/23 15:10 Review of Systems Review of Systems: All systems reviewed & are unremarkable except as noted in HPI and below [facility] [place] Past Medical History Medical History (Updated 09/13/23 @ 16:40 by Ellen Brito MD) Acute alcoholic pancreatitis Acute bronchitis Acute hyponatremia Acute on chronic pancreatitis Acute pancreatitis (~03/22/23) ADHD, predominantly hyperactive type Alcohol abuse abstain Anxiety Attention deficit disorder Bleeding internal hemorrhoids treated surgically BMI 23.0-23.9, adult Body mass index [BMI] 22.0-22.9, adult Chronic diarrhea after cholecystectomy Chronic low back pain without sciatica COPD (chronic obstructive pulmonary disease) (~03/25/22) 29 year history of smoking with chest x-ray 03/25/2022 with hyperinflation suggestive of COPD. Depression Encounter for surgical aftercare following surgery on the skin and subcutaneous tissue Essential hypertension Gastro-esophageal reflux disease without esophagitis Hemorrhoids Hepatic steatosis History of abscessed tooth requiring surgical drainage Hyperlipidemia total cholesterol 214, triglycerides elevated at 437, HDL 41 and LDL not calculated on 08/26/2021. Total cholesterol 212, triglycerides 329, HDL 63, LDL 105 with ratio 3.4 on 01/28/2023. Hypothyroidism TSH suppressed at less than 0.01 with free T4 slightly elevated at 2.5 on 08/26/2021. TSH 5.17, free T4 at 1.0, T3 total low at 63 on 01/28/2023. Internal hemorrhoids Male erectile dysfunction, unspecified (~2020) Neuroleptic-induced tardive dyskinesia Pain in left foot Pancreatitis Requiring hospitalization in Feb 2020, May 2020 and Feb 2021 attributed to alcohol abuse. Plantar wart of left foot (~2021) Psychiatric illness Recurrent acute pancreatitis Schizoaffective disorder Seizures Last seizure in 2018. Spontaneous pneumothorax Thyroid cancer (~2000) Status post thyroidectomy. Tobacco dependence 1 pack per day Vitamin B12 deficiency (01/28/23) level low at 347 with goal greater than 400 with folic acid 7.8 and hemoglobin 14.5 on 01/28/2023. Surgical History Surgical History (Updated 06/02/23 @ 09:14 by Kimberly Blum MA) History of chest tube placement Spontaneous left-sided pneumothorax. History of cholecystectomy History of hemorrhoidectomy Exam under anesthesia, internal and external hemorrhoidectomy involving left lateral and right anterior positions on 05/20/23 PD[facility] His
--- NOTE | 2023-09-13 15:11 | ECG_ITS ---
Measurements Intervals [place] Rate: 58 P: 58 SD: 197 QRS: 72 QRSD: 90 T: 60 QT: 391 QTc: 385 Interpretive Statements SINUS BRADYCARDIA WITH SINUS ARRHYTHMIA BORDERLINE ECG COMPARED TO ECG 12/21/2022 14:23:05 SINUS BRADYCARDIA NOW PRESENT SINUS ARRHYTHMIA NOW PRESENT Electronically Signed On 09-13-2023 18:34:47 [employer] by Zachery Lopez M.D.
[2023-09-13 15:44] LABS: Glucose Point of Care 156 mg/dl (65-105)
[2023-09-13 15:51] LABS: Basophils Percent Auto 0.3 % (0.2-1.2); Eosinophils Absolute Auto 0.1 K/mm3 (0-0.3); Eosinophils Percent Auto 0.4 % (0-4.4); Hematocrit 43.7 % (42.0-52.0); Hemoglobin 14.6 g/dL (14.0-18.0); Immature Granulocyte Absolute 0.04 K/mm3 (0.00-0.031); Immature Granulocyte Percent A 0.3 % (0-0.5); Lymphocytes Absolute Auto 1.82 K/mm3 (0.9-3.2); Lymphocytes Percent Auto 14.9 % (18.3-44.2); Mean Corpuscular HGB Conc 33.4 g/dl (32-36); Mean Corpuscular Hemoglobin 30.9 pg (26-34); Mean Corpuscular Volume 92.4 fl (80-100); Mean Platelet Volume 9.6 fl (7.4-10.4); Monocytes Absolute Auto 0.8 K/mm3 (0.1-0.6); Monocytes Percent Auto 6.2 % (2.6-8.5); Neutrophils Absolute Auto 9.5 K/mm3 (1.3-6.7); Neutrophils Percent Auto 77.9 % (45.5-73.1); Platelet Count Result 330 k/mm3 (150-375); Red Blood Count 4.73 M/mm3 (4.6-6.20); Red Cell Distribution Width 12.8 % (11.5-14.5); White Blood Count 12.2 K/mm3 (4.5-10.0)
[2023-09-13 16:00] LABS: Ethanol < 10 mg/dL (<10)
[2023-09-13 16:01] LABS: Alanine Aminotransferase 19 U/L (6-50); Albumin Level 4.4 g/dL (3.5-5.1); Alkaline Phosphatase 100 U/L (38-126); Anion Gap 10 mmol/L (8-16); Aspartate Amino Transferase 24 U/L (17-59); Bilirubin,Total 0.4 mg/dL (0.2-1.3); Blood Urea Nitrogen 7 mg/dL (9-20); Calcium 9.2 mg/dL (8.4-10.2); Carbon Dioxide 20 mmol/L (22-30); Chloride 101 mmol/L (98-107); Estimated CRCL calculation 104 ml/min; Estimated Glomerular Filt Rate > 60; Glucose 141 mg/dL (65-110); Magnesium 2.2 mg/dL (1.6-2.3); Potassium 3.5 mmol/L (3.4-5.0); Sodium 131 mmol/L (137-145)
[2023-09-13 16:14] LABS: Troponin I < 0.012 ng/mL (0.000-0.034)
[2023-09-13 16:23] VITALS: BP 132/95; PULSE 79; RESP 19; O2SAT 98
[2023-09-13 17:04] LABS: Appearance Urine Clear (Clear); Bacteria Urine None Seen /hpf; Bilirubin Urine Negative (Negative); Blood Urine Negative (Negative); Color Urine Yellow (Yellow); Glucose Urine UA Negative (Negative); Hyaline Casts Urine Present /lpf; Ketones Urine Negative (Negative); Leukocyte Esterase Ur Negative LEU/UL (Negative); Nitrate Urine Negative (Negative); Protein Urine Trace mg/dL (Negative); RBC Urine 0-2 /hpf (0-2); Specific Grav Ur 1.011 (1.001-1.035); Squamous Epithelial Cell Urine None seen /hpf (Few); Urobilinogen Urine 0.2 mg/dL (<2.0); WBC Urine 0-5 /hpf
[2023-09-13 17:18] LABS: Add Urine Microscopic? YES
== END 2023-09-13 16:55 | disposition home or self-care (01) ==
PROVIDERS: Emergency Provider Student in an Organized Health Care Education/Training Program; PCP Family Medicine
DX: R56.9 Unspecified convulsions (principal); J44.9 Chronic obstructive pulmonary disease, unspecified; I10 Essential (primary) hypertension; E78.5 Hyperlipidemia, unspecified; E89.0 Postprocedural hypothyroidism; K21.9 Gastro-esophageal reflux disease without esophagitis; F25.9 Schizoaffective disorder, unspecified; F41.9 Anxiety disorder, unspecified; F90.9 Attention-deficit hyperactivity disorder, unspecified type; F17.210 Nicotine dependence, cigarettes, uncomplicated; Z85.850 Personal history of malignant neoplasm of thyroid; Z90.49 Acquired absence of other specified parts of digestive tract; R00.1 Bradycardia, unspecified
CPT/HCPCS: 36415; 70450; 71046; 80053; 80307; 81001; 82948; 83735; 84484; 85025; 93005; 99284